=== PATIENT | female | born 1960 | race Caucasian/White ===

== ENCOUNTER 2019-11-06 09:51 | Outpatient (CLI) | payer OTHER, SELFPAY ==
--- NOTE | 2019-11-06 | ECG_ITS ---
Measurements Intervals [place] Rate: 78 P: 14 RI: 170 QRS: 26 QRSD: 114 T: 35 QT: 411 QTc: 469 Interpretive Statements SINUS RHYTHM CONSIDER INFERIOR INFARCT, AGE INDETERMINATE BASELINE ARTIFACT- II, III ABNORMAL ECG Electronically Signed On 11-06-2019 11:52:05 PATIENT FINANCIAL SERVICES SPECIALIST by Nate Carroll D.O.
--- NOTE | ~2019-11-06 | CT_ITS ---
EXAMINATION: CT lung screening EXAM DATE: 11/06/2019 10:11 INDICATION: Personal history of nicotine dependence. TECHNIQUE: Spiral low dose CT of the chest without contrast. Axial, coronal and sagittal images were reviewed. The dose-length product (DLP) for this examination was 77.53 mGy-cm. The exposure was ta ilored according to patient size (auto mA exposure control), and iterative reconstruction (ASIR) was used as additional dose reduction technique. There is no prior study for comparison. FINDINGS: Linear right basilar scarring.There is mild emphysema and hyperinflation. Tracheobronchial tree is patent. There is no mediastinal, hilar or axillary lymphadenopathy. There are no pleural or pericardial effusions. There is no pneumothorax. Heart normal in size. No evidence of coron shelby arterial calcification. There is moderate sliding gastroesophageal hiatal hernia. Upper abdomen is unremarkable. There is mild to moderate thoracic spondylosis without osteoblastic or osteolytic lesions identified. IMPRESSION: Lung-RADS category 1, negative (<1%chance of malignancy); recommend continued LDCT screen ing in 1 year. Reviewed, dictated and finalized at location A. AND AND CONTROL IMPRESSION: Lung-RADS category 1, negative (<1%chance of malignancy); recommend continued LDCT screening in 1 year.
== END 2019-11-06 09:52 | disposition home or self-care (01) ==
PROVIDERS: Visit Provider Physician Assistant
DX: F17.200 Nicotine dependence, unspecified, uncomplicated (principal); R94.31 Abnormal electrocardiogram [ECG] [EKG]
CPT/HCPCS: 93005; G0297

== ENCOUNTER 2020-11-30 16:21 | Outpatient (CLI) | payer OTHER, SELFPAY ==
--- NOTE | ~2020-11-30 | MM_ITS ---
EXAMINATION: MM screening [place] BI w ritu HISTORY: Screening TECHNIQUE: Craniocaudal and mediolateral oblique 3-D tomosynthesis images were obtained and synthetic 2-D images were generated. CAD analysis was submitted and interpreted. COMPARISON: Comparison to multiple prior studies sequentially, with oldest reviewed study dated 08/01. BREAST PARENCHYMAL COMPOSITION: There are scattered areas of fibroglandular density. FINDINGS: There is no evidence of suspicious mass, calcification, or architectural distortion to sugg est malignancy in either breast. There has been no suspicious interval change. IMPRESSION: 1. No mammographic evidence of malignancy. 2. Recommend routine screening mammography in one year. BI-RADS Category 1: Negative Reviewed, dictated and finalized at location A. RSING MILL ROLLER
== END 2020-11-30 16:22 | disposition home or self-care (01) ==
LOC: ANHIMG 16:22
PROVIDERS: PCP Physician Assistant; Visit Provider Physician Assistant
DX: Z12.31 Encounter for screening mammogram for malignant neoplasm of breast (principal)
CPT/HCPCS: 77063; 77067

== ENCOUNTER 2021-10-02 03:53 | Emergency (ER) | payer OTHER, SELFPAY ==
--- NOTE | ~2021-10-02 | CT_ITS ---
EXAMINATION: CT abdomen pelvis w con EXAM DATE: 10/02/2021 09:24 INDICATION: Abdominal pain. TECHNIQUE: Spiral CT of the abdomen and pelvis was performed following intravenous injection of 100 m L Omnipaque 350. Axial, coronal and sagittal images of the abdomen and pelvis were reviewed. The do se-length product (DLP) for this examination was 508.55 mGy-cm. The exposure was tailored according to patient size (auto mA exposure control), and iterative reconstruction (ASIR) was used as additiona l dose reduction technique. Comparison is made to prior examination from 2010. Correlation also made to chest CT from 11/06/2019. FINDINGS: There is a 6 mm stone at the right ureterovesicular junction, a contiguous 2 mm stone just proximal to this. There is moderate right-sided hydroureteronephrosis, mild perinephric fat stranding . Several additional punctate right calyceal stones. There is left calyceal 8 mm stone, no left urete ral stones. The liver, spleen, adrenal glands and pancreas are unremarkable. Gallbladder is unremarkable. No bi liary obstruction. The uterus is anteverted and morphologically normal. The bladder is unremarka ble. There is no retroperitoneal or pelvic lymphadenopathy. There is mild scattered arteriosclerot ic disease. The appendix is normal. There is mild scattered colonic diverticulosis. There is no adjacent inflamm atory change to suggest diverticulitis. There is moderate-sized gastroesophageal hiatal hernia adjac ent subsegmental atelectasis. There is expected amount of colonic stool. No free intraperitoneal gas. The heart is normal in size. There are no pericardial or pleural effusions. There is tree-in-bud distribution right lower lobe airspace disease without any evidence of this at t he left lung base. Nonspecific pneumonitis, most likely infectious process but other inflammatory charan ologies possible. This was not present on CT 2 years ago. There are no osteoblastic or osteolytic les ions identified. IMPRESSION: 1. Right UVJ 6 mm stone, moderate hydronephrosis. Additional 2 mm right distal ureteral stone. 2. Nonspecific right lower lobe pneumonitis. 3. Bilateral nephrolithiasis. 4. Mild colonic diverticulosis. 5. Moderate hiatal hernia. Reviewed, dictated and finalized at location A. FRAZER
--- NOTE | ~2021-10-02 | XR_ITS ---
EXAMINATION: XR abdomen/kub 1V EXAM DATE: 10/02/2021 09:34 INDICATION: kidney stones TECHNIQUE: Frontal projection(s) of the abdomen for interpretation. There is no prior study for meli camarena. FINDINGS: Moderate right-sided hydronephrosis and delayed nephrogram compared to the contralateral s romi which is normal. Can't identify stones due to presence of contrast. Moderate amount of colonic st ool and gas. No small bowel dilation. There are no osteoblastic or osteolytic lesions identified. IMPRESSION: Moderate right hydronephrosis. Reviewed, dictated and finalized at location A. IAGE THERAPIST
[2021-10-02 03:56] VITALS: BP 118/80; PULSE 107; RESP 19; TEMP 36.7; O2SAT 94
[2021-10-02 06:12] VITALS: BP 126/86; PULSE 95; RESP 17; TEMP 37.1; O2SAT 95
[2021-10-02 06:50] LABS: Add Urine Microscopic? YES; Appearance Urine Cloudy (Clear); Bilirubin Urine Negative (Negative); Blood Urine 3+ (Negative); Calcium Oxalate Crystals Urine Present /hpf; Color Urine Amber (Yellow); Glucose Urine UA Negative (Negative); Ketones Urine Trace mg/dL (Negative); Leukocyte Esterase Ur 1+ LEU/UL (Negative); Mucus Urine Moderate /lpf; Nitrate Urine Negative (Negative); Protein Urine 2+ mg/dL (Negative); RBC Urine >75 /hpf (0-2); Squamous Epithelial Cell Urine Few /hpf (Few); WBC Urine 31-50 /hpf
[2021-10-02 07:05] LABS: Specific Grav Ur 1.033 (1.001-1.035)
--- NOTE | 2021-10-02 07:20 | ED.GENADULT ---
HPI - General Adult General Chief complaint: Urogenital-Female Stated complaint: bladder infection, side pain Time Seen by Provider: 10/02/21 07:01 Source: RN notes reviewed History of Present Illness HPI narrative: Patient presents emergency department from home for abdominal pain. Patient states pain began last night pain is located in the right lower quadrant radiates around to the right flank described as sharp and stabbing patient also states that with the symptoms she has difficulty urinating. She denies any fevers or chills nausea or vomiting diarrhea or any other symptoms. States she does not take anything for the pain states she feels like she has to urinate but cannot urinate Related Data Home Medications Medication Instructions Recorded Confirmed ropinirole 0.25 mg tablet 0.25 mg PO TID 03/08/21 10/02/21 valbenazine 80 mg capsule 80 mg PO DAILY 03/08/21 10/02/21 acyclovir 400 mg DAILY 10/02/21 10/02/21 citalopram 40 mg DAILY 10/02/21 10/02/21 doxepin 100 mg DAILY 10/02/21 10/02/21 mirtazapine 15 mg HS 10/02/21 10/02/21 quetiapine 300 mg PO HS 10/02/21 10/02/21 rosuvastatin 5 mg DAILY 10/02/21 10/02/21 Allergies Allergy/AdvReac Type Severity Reaction Status Date / Time No Known Allergies Allergy Verified 10/02/21 09:42 Review of Systems Review of Systems: Gen.: Denies fevers or chills ENT: Denies congestion Respiratory: Denies shortness of breath or cough CV: Denies chest pain or palpitations GI: See HPI denies nausea, emesis or diarrhea see HPI Musculoskeletal: Denies back pain or muscle pain Neuro: Denies numbness, tingling, weakness or focal weakness Skin: Denies rash Except as documented, all other systems reviewed and negative [facility] Past Medical History Medical History (Updated 10/02/21 @ 10:53 by Fortino Zayas DO) Parkinsons disease Social History Social History Smoking status: Never smoker Alcohol intake: never Exam Narrative: APPEARANCE: No acute distress, nontoxic, resting in bed HEENT: Normocephalic, atraumatic, OMM RESPIRATORY: No respiratory distress, clear to auscultation bilaterally with no rhonchi wheezing or rales CARDIOVASCULAR: RRR s murmur ABDOMINAL: Soft nondistended tender palpation right lower quadrant and right upper quadrant no tenderness in left upper quadrant left lower quadrant no rebound or guarding, right flank tenderness MUSCULOSKELETAl: Moves all extremities. No clubbing, cyanosis or edema. NEURO: Awake and alert. Following commands, speech normal, no focal deficits SKIN:: Warm, dry. Normal Color PSYCHIATRIC: Normal affect/mood Course Course Emergency Course: Discussed with Dr. Enriquez for urology presentation and work-up. At this time pain is controlled, patient be discharged home with Augmentin with follow-up as an outpatient Discussed with patient her CT scan showing mild pneumonitis she states she has an occasional cough but no regular cough no fever at this time question significance as the patient presented for her flank pain and kidney stone patient has been placed on Augmentin which will cover for pneumonia and have her follow-up with her PCP Discussed with patient results of workup and diagnosis. Discussed need for follow-up with primary care, proper use of medication, and reasons to return to the emergency department. Patient understands and agrees to current treatment plan Vital Signs Vital signs: Vital Signs Temperature 98.0 F 10/02/21 03:56 Pulse Rate 107 H 10/02/21 03:56 Respiratory Rate 19 10/02/21 03:56 Blood Pressure 118/80 10/02/21 03:56 Pulse Oximetry 94 10/02/21 03:56 Temperature 98.7 F 10/02/21 06:12 Pulse Rate 83 10/02/21 10:49 Respiratory Rate 18 10/02/21 10:49 Blood Pressure 102/74 10/02/21 10:49 Pulse Oximetry 93 10/02/21 10:49 Medical Decision Making Vital Signs Vital Signs: Vital Signs Temperature 98.0 F 10/02/21 03:56 P
[2021-10-02] MEDS: SODIUM CHLORIDE 0.9% IV 1,000 ML 999 ML IV CONT (08:08)
[2021-10-02 08:27] LABS: Basophils Percent Auto 0.3 % (0.2-1.2); Eosinophils Percent Auto 0.5 % (0-4.4); Hematocrit 36.5 % (37.0-47.0); Hemoglobin 12.2 g/dL (12.0-15.0); Immature Granulocyte Absolute 0.02 K/mm3 (0.00-0.031); Immature Granulocyte Percent A 0.3 % (0-0.5); Lymphocytes Absolute Auto 0.49 K/mm3 (0.9-3.2); Lymphocytes Percent Auto 6.6 % (18.3-44.2); Mean Corpuscular HGB Conc 33.4 g/dl (32-36); Mean Corpuscular Hemoglobin 29.8 pg (26-34); Mean Corpuscular Volume 89.2 fl (80-100); Mean Platelet Volume 9.9 fl (7.4-10.4); Monocytes Absolute Auto 0.5 K/mm3 (0.1-0.6); Monocytes Percent Auto 7.3 % (2.6-8.5); Neutrophils Absolute Auto 6.3 K/mm3 (1.3-6.7); Platelet Count Result 172 k/mm3 (150-375); Red Blood Count 4.09 M/mm3 (4.2-5.4); Red Cell Distribution Width 12.4 % (11.5-14.5); White Blood Count 7.4 K/mm3 (4.5-10.0)
[2021-10-02 08:37] LABS: Alanine Aminotransferase 6 U/L (4-35); Albumin Level 4.5 g/dL (3.5-5.1); Alkaline Phosphatase 112 U/L (38-126); Anion Gap 7 mmol/L (8-16); Aspartate Amino Transferase 20 U/L (14-36); Bilirubin,Total 0.7 mg/dL (0.2-1.3); Blood Urea Nitrogen 24 mg/dL (7-17); Calcium 9.4 mg/dL (8.4-10.2); Carbon Dioxide 27 mmol/L (22-30); Chloride 104 mmol/L (98-107); Estimated CRCL calculation 42 ml/min; Estimated Glomerular Filt Rate 50; Glucose 134 mg/dL (65-110); Potassium 4.5 mmol/L (3.4-5.0); Sodium 138 mmol/L (137-145)
[2021-10-02] MEDS: MORPHINE SULFATE (*CRX) 4 MG/ML INJ IV PUSH (10:20)
[2021-10-02] MEDS: TAMSULOSIN HCL 0.4 MG CAPSULE PO (10:20)
[2021-10-02 10:49] VITALS: BP 102/74; PULSE 83; RESP 18; O2SAT 93
== END 2021-10-02 11:11 | disposition home or self-care (01) ==
PROVIDERS: Emergency Medicine; Emergency Provider Emergency Medicine; PCP Physician Assistant
DX: N13.2 Hydronephrosis with renal and ureteral calculous obstruction (principal); N39.0 Urinary tract infection, site not specified; G20 Parkinson's disease; J18.9 Pneumonia, unspecified organism; K57.90 Diverticulosis of intestine, part unspecified, without perforation or abscess without bleeding; K44.9 Diaphragmatic hernia without obstruction or gangrene
CPT/HCPCS: 36415; 74018; 74177; 80053; 81001; 85025; 87086; 87088; 96361; 96365; 96375; 99284; A9270; J0131; J0696; J2270; J7030; Q9967

== ENCOUNTER 2021-12-21 10:18 | Outpatient (CLI) | payer OTHER, SELFPAY ==
--- NOTE | ~2021-12-21 | MM_ITS ---
EXAMINATION: MM screening filomen[place] BI w ritu HISTORY: Screening mammogram TECHNIQUE: Craniocaudal and mediolateral oblique 3-D tomosynthesis images were obtained and synthetic 2-D images were generated. CAD analysis was submitted and interpreted. COMPARISON: 11/30/2020 bilateral screening mammogram 10/07/2019 diagnostic bilateral mammogram and Limited bilateral breast ultrasound examination 07/31/2019 bilateral screening mammogram BREAST PARENCHYMAL COMPOSITION: There are scattered areas of fibroglandular density. FINDINGS: There is no evidence of suspicious mass, calcification, or architectural distortion to sugg est malignancy in either breast. There has been no suspicious interval change. IMPRESSION: 1. No mammographic evidence of malignancy. 2. Recommend routine screening mammography in one year. BI-RADS Category 1: Negative Reviewed, dictated and finalized at location A.
== END 2021-12-21 10:19 | disposition home or self-care (01) ==
PROVIDERS: PCP Physician Assistant; Visit Provider Physician Assistant
DX: Z12.31 Encounter for screening mammogram for malignant neoplasm of breast (principal)
CPT/HCPCS: 77063; 77067

== ENCOUNTER 2022-10-12 12:00 | Outpatient (CLI) | payer OTHER, SELFPAY ==
--- NOTE | ~2022-10-12 | XR_ITS ---
EXAMINATION: XR hip RT min 2V DATE: 10/12/2022 12:31 INDICATION: Right-sided sciatica TECHNIQUE: Two views of right hip were obtained. COMPARISON: None. FINDINGS: Bone alignment is normal. There is no fracture. The soft tissues are unremarkable. Tubal li gation clip is noted IMPRESSION: 1. No acute osseous abnormality. Reviewed, dictated and finalized at location L. RDS TECH
--- NOTE | ~2022-10-12 | XR_ITS ---
EXAMINATION: XR lumbar spine 2-3V DATE: 10/12/2022 12:31 INDICATION: Right-sided sciatica TECHNIQUE: Anteroposterior and lateral views of the lumbar spine, and cone-down lateral view of the l umbosacral junction were obtained. COMPARISON: None. FINDINGS: There are 2 mm of retrolisthesis of L5 on S1. There is moderate loss of intervertebral disc space height at L5-S1. Vertebral body alignment and intervertebral disc space heights are otherwise normal. The vertebral body heights are maintained. Small degenerative osteophytes project from the an terior endplates of multiple vertebral bodies. Calcified atherosclerosis is noted. There is a 10 mm s tone of the left kidney lower pole. Tubal ligation clips are noted. IMPRESSION: 1. Moderate lumbar spondylosis at L5-S1 without acute findings. Reviewed, dictated and finalized at location L. NE ELECTRICIAN HELPER
[2022-10-12 13:32] LABS: Basophils Percent Auto 0.4 % (0.2-1.2); Eosinophils Percent Auto 0.9 % (0-4.4); Hematocrit 39.1 % (37.0-47.0); Immature Granulocyte Absolute 0.01 K/mm3 (0.00-0.031); Immature Granulocyte Percent A 0.2 % (0-0.5); Lymphocytes Absolute Auto 0.85 K/mm3 (0.9-3.2); Lymphocytes Percent Auto 19.1 % (18.3-44.2); Mean Corpuscular HGB Conc 33.2 g/dl (32-36); Mean Corpuscular Volume 93.3 fl (80-100); Mean Platelet Volume 10.5 fl (7.4-10.4); Monocytes Absolute Auto 0.4 K/mm3 (0.1-0.6); Neutrophils Absolute Auto 3.1 K/mm3 (1.3-6.7); Neutrophils Percent Auto 70.4 % (45.5-73.1); Platelet Count Result 183 k/mm3 (150-375); Red Blood Count 4.19 M/mm3 (4.2-5.4); Red Cell Distribution Width 13.9 % (11.5-14.5); White Blood Count 4.5 K/mm3 (4.5-10.0)
[2022-10-12 13:47] LABS: Hemoglobin A1C 5.3 % (<5.7)
[2022-10-12 13:50] LABS: Alanine Aminotransferase 7 U/L (6-35); Albumin Level 4.4 g/dL (3.5-5.1); Alkaline Phosphatase 124 U/L (38-126); Anion Gap 7 mmol/L (8-16); Aspartate Amino Transferase 17 U/L (14-36); Bilirubin,Total 0.4 mg/dL (0.2-1.3); Blood Urea Nitrogen 16 mg/dL (7-17); Calcium 8.6 mg/dL (8.4-10.2); Carbon Dioxide 26 mmol/L (22-30); Chloride 107 mmol/L (98-107); Cholesterol 144 mg/dL (0-200); Estimated Glomerular Filt Rate > 60; Glucose 106 mg/dL (65-110); HDL Direct 71 mg/dL; Potassium 3.7 mmol/L (3.4-5.0); Sodium 140 mmol/L (137-145); Triglycerides 107 mg/dL (<150)
[2022-10-12 14:01] LABS: LDL Cholesterol Direct 43 mg/dL
[2022-10-12 14:23] LABS: Vitamin D 25 Hydroxy 44.7 ng/mL
[2022-10-12 14:37] LABS: Thyroid Stimulating Hormone Reflex 0.788 uIU/mL (0.465-4.68)
[2022-10-15 15:25] LABS: Red Blood Cell Folate 506 ng/mL RBC (>280)
== END 2022-10-12 12:01 | disposition home or self-care (01) ==
PROVIDERS: PCP Nurse Practitioner Family; Visit Provider Nurse Practitioner Family
DX: M54.31 Sciatica, right side (principal); M25.551 Pain in right hip; Z13.0 Encounter for screening for diseases of the blood and blood-forming organs and certain disorders involving the immune mechanism; Z13.1 Encounter for screening for diabetes mellitus; Z13.29 Encounter for screening for other suspected endocrine disorder; Z13.220 Encounter for screening for lipoid disorders; Z13.9 Encounter for screening, unspecified; M47.897 Other spondylosis, lumbosacral region
CPT/HCPCS: 36415; 72100; 73502; 80053; 80061; 82306; 82607; 82747; 83036; 84443; 85025

== ENCOUNTER 2022-10-17 16:23 | Outpatient (CLI) | payer OTHER, SELFPAY ==
--- NOTE | ~2022-10-17 | DEXA_ITS ---
Bone Density Report Name: HERMINIA PERKINS Age: 61 Sex: Female Ethnicity: White Date of : 1960 Indication: postmenopausal; screening for osteoporosis; Referring Provider: NEERAJ, SHADIA Martin Study: Bone densitometry was performed. Exam Date: October 17, 2022 Accession number: [id number] Bone Density: Region BMD T-score Z-score Classification AP Spine(L1-L4) 0.858 -1.7 -0.1 Osteopenia Femoral Neck (Left) 0.628 -2.0 -0.6 Osteopenia Total Hip (Left) 0.785 -1.3 -0.2 Osteopenia Femoral Neck (Right) 0.627 -2.0 -0.6 Osteopenia Total Hip (Right) 0.752 -1.6 -0.4 Osteopenia Total Hip Mean 0.769 -1.5 -0.3 Osteopenia World Health Organization criteria for BMD impression classify patients as: Normal (T-score at or above -1.0), Osteopenia (T-score between -1.0 and -2.5), or Osteoporosis (T-score at or below -2.5). 10-year Fracture Risk(1): Major Osteoporotic Fracture 9.7% Hip Fracture 1.3% Reported Risk Factors: [place] (), Neck BMD=0.628, BMI=23.4 (1) FRAX(R) Version 3.08. Fracture probability calculated for an untreated patient. Fracture probability may be lower if the patient has received treatment. Clinical Information Provided by Patient: Patient maximum height was 62.5 Menopause Age: 44 No regular weight bearing exercise Drinks caffeinated beverages Onset of menses at age 11 Number of children 2 Impression: The patient has low bone mass, based on the Left Femoral Neck T-score. The patient has an estimated ten-year risk of hip fracture of 1.3% and an estimated ten-year risk of major fracture of 9.7%, based on the WHO FRAX algorithm. Discussion: BONE DENSITY IS LOW AT ONE OR MORE SKELETAL SITES. This patient's lowest T-score is low at one or more skeletal sites. It meets the World Health Organization's (WHO) criteria for ?low bone mass? (T-score between -1.0 and -2.5). The patient's 10-year risk of fracture as calculated by FRAX is less than the threshold where pharmacological therapy is recommended by the National Osteoporosis Foundation (NOF). However, all treatment decisions require clinical judgment and consideration of individual patient factors, including patient preferences, comorbidities, previous drug use, risk factors not captured in the FRAX model (e.g., frailty, falls, vitamin D deficiency, increased bone turnover, interval significant decline in bone density) and possible under or overestimation of fracture risk by FRAX. The patient should follow a healthful lifestyle (good nutrition with adequate calcium and vitamin D, and appropriate weight-bearing exercise). Follow-Up: Consider repeating this study in 2 to 3 years to reassess this patient's status, or sooner if there is some new clinical indication. Reported by: [facility] on 10/17/2022 4:59:00 PM.
--- NOTE | ~2022-10-17 | US_ITS ---
EXAMINATION: US pelvic complete w TV DATE: 10/17/2022 17:57 INDICATION: Right lower quadrant abdominal pain. TECHNIQUE: Multiple transabdominal and transvaginal sonographic images of the pelvis were obtained. COMPARISON: CT abdomen pelvis 10/02/21 FINDINGS: TRANSABDOMINAL ULTRASOUND: The uterus measures 6.6 x 2.3 x 3.8 cm. There is no free fluid in the pelvis. TRANSVAGINAL ULTRASOUND: The endometrial complex measures 2 mm in thickness. There are small calcifications in the uterus. The right ovary measures 1.8 x 0.9 x 1.4 cm. The left ovary measures 2.3 x 1.1 x 1.3 cm. There is normal vascular flow in the ovaries. IMPRESSION: 1. No etiology for the patient's symptoms. Reviewed, dictated and finalized at location A. MATIC TOE LASTER
== END 2022-10-17 16:24 | disposition home or self-care (01) ==
PROVIDERS: PCP Nurse Practitioner Family; Visit Provider Nurse Practitioner Family
DX: Z78.0 Asymptomatic menopausal state (principal); R10.31 Right lower quadrant pain; M85.88 Other specified disorders of bone density and structure, other site; M85.852 Other specified disorders of bone density and structure, left thigh; M85.851 Other specified disorders of bone density and structure, right thigh
CPT/HCPCS: 76830; 76856; 77080

== ENCOUNTER 2023-08-15 09:35 | Outpatient (CLI) | payer MEDICARE, MEDICAID, SELFPAY ==
--- NOTE | ~2023-08-15 | MM_ITS ---
EXAMINATION: MM screening [facility] BI w ritu HISTORY: Screening mammogram TECHNIQUE: Craniocaudal and mediolateral oblique 3-D tomosynthesis images were obtained and synthetic 2-D images were generated. CAD analysis was submitted and interpreted. COMPARISON: 12/21/2021, 11/30/2020, 10/07/2019, 07/31/2019 BREAST PARENCHYMAL COMPOSITION: There are scattered areas of fibroglandular density. FINDINGS: No suspicious mass, calcification, or architectural distortion are identified in either anna ast to suggest malignancy. There has been no suspicious interval change. IMPRESSION: 1. No mammographic evidence of malignancy. 2. Recommend routine screening mammography in one year. BI-RADS Category 1: Negative Reviewed, dictated and finalized at location A. ULTANT RN
== END 2023-08-15 09:36 | disposition home or self-care (01) ==
LOC: ANHIMG 09:38
PROVIDERS: PCP Nurse Practitioner Family; Visit Provider Nurse Practitioner Family
DX: Z12.31 Encounter for screening mammogram for malignant neoplasm of breast (principal)
CPT/HCPCS: 77063; 77067

== ENCOUNTER 2023-12-08 08:44 | Observation (INO) | payer MEDICARE, MEDICAID, SELFPAY ==
[2023-12-08] VITALS (12 sets, daily range): BP systolic 88–126; BP diastolic 56–88; PULSE 87–105; RESP 15–23; TEMP 36.2–37; O2SAT 94–98; BMI 17.9
--- NOTE | ~2023-12-08 | XR_ITS ---
XR chest 1V portable DATE: 12/08/2023 10:06 INDICATION: Syncope TECHNIQUE: Portable AP chest on 12/08/2023 at 0953 hours COMPARISON: November 06, 2019 CT lung screening 06/15/2017 two-view chest FINDINGS: Normal heart size. No hilar or mediastinal enlargement. Moderate bilateral hyperinflation. No pulmonary infiltrate or consolidation, pleural effusion or pulmonary vascular congestion or pneumo thorax is detected. Moderate hiatal hernia is suggested. Osteopenia. Degenerative spurring of the lower thoracic spine particular. IMPRESSION: Moderate hyperinflation; no active cardiopulmonary disease or significant change since Reviewed, dictated and finalized at location A. BRUSHER IMPRESSION: Moderate hyperinflation; no active cardiopulmonary disease or signi ficant change since 06/15/2017
--- NOTE | ~2023-12-08 | XR_ITS ---
XR wrist RT min 3V DATE: 12/08/2023 10:06 INDICATION: Fall. Pain and swelling of right wrist. TECHNIQUE: 4 views COMPARISON: None FINDINGS: Virtually nondisplaced transverse distal radial metaphyseal fracture and fracture of ulnar styloid process. There is mild dorsal inclination of distal radial articular surface. Normal radiocarpal alignment. Osteopenia. IMPRESSION: Transverse distal radial metaphyseal fracture and fracture of ulnar styloid process Reviewed, dictated and finalized at location A. L PHOTOGRAPHER
--- NOTE | ~2023-12-08 | CT_ITS ---
EXAMINATION: CT brain wo con DATE: 12/08/2023 10:27 INDICATION: Fall. Head and facial injury. TECHNIQUE: Computed tomography (CT) of the head was performed without intravenous contrast. The mA wa s adjusted according to patient size. Iterative reconstruction technique was employed. Exam dose: 52 9.67 mGy-cm total exam DLP. COMPARISON: 09/18/2019 MRI brain/brainstem FINDINGS: Minimal left basal ganglia calcification. Normal ventricular size. Normal morton-white matter differentiation. No intracranial mass lesion or hemorrhage or cerebrovascular accident. No midline shift or mass effec t. Minimal right maxillary and left sphenoid sinus mucoperiosteal thickening. The mastoid air cells are normally developed and aerated. No fracture or bone destruction of the cranial vault. IMPRESSION: No skull fracture or acute intracranial finding Reviewed, dictated and finalized at Location A. Reviewed, dictated and finalized at location A. ROL DIRECTOR
--- NOTE | ~2023-12-08 | CT_ITS ---
EXAMINATION: CT facial & cervical spine wo DATE: 12/08/2023 10:27 INDICATION: Fall. Head and facial injury TECHNIQUE: Computed tomography (CT) of the facial bones and maxillofacial region was performed withou t intravenous contrast. Automated exposure control and iterative reconstruction technique were employ ed. Exam dose: 176.60 mGy-cm total exam DLP. COMPARISON: None. FINDINGS: The facial bones, including the orbital rims and veronica, frontozygomatic sutures, nasal bone s, zygomatic arches and maxillary bones are intact. The pterygoid plates are intact. Normal alignment at the temporomandibular joints. No mandibular fracture. Prominent mucoperiosteal thickening of the right maxillary sinus an mild mucoperiosteal thickening of left sphenoid sinus.. Remaining paranasal sinuses are unremarkable. No sinus fluid levels. Included mastoid air cells are normally developed and aerated.. IMPRESSION: No facial bone fracture Reviewed, dictated and finalized at Location A. Reviewed, dictated and finalized at location A. CE RESERVES COMMANDER IMPRESSION: No facial bone fracture
--- NOTE | ~2023-12-08 | XR_ITS ---
XR shoulder LT min 2V DATE: 12/08/2023 10:06 INDICATION: Fall. Left shoulder injury, pain TECHNIQUE: 4 views COMPARISON: None FINDINGS: There is diffuse osteopenia. No fracture or dislocation, periosteal reaction or bone destru ction or abnormal soft tissue calcification. There is degenerative change at the left acromioclavicul ar joint. IMPRESSION: No fracture or dislocation Degenerative change at left, clavicular joint Osteopenia Reviewed, dictated and finalized at location A. OSER TEACHING ARTIST
--- NOTE | 2023-12-08 09:18 | ECG_ITS ---
Measurements Intervals [place] Rate: 98 P: 71 ND: 179 QRS: -67 QRSD: 98 T: 68 QT: 345 QTc: 442 Interpretive Statements SINUS RHYTHM MINIMAL Q WAVES- INFERIOR LEADS BORDERLINE T WAVE ABNORMALITY- HIGH LATERAL LEADS BASELINE WANDER- II, III, V5-V6 BORDERLINE ECG COMPARED TO ECG 11/06/2019 11:36:23 NO SIGNIFICANT CHANGES Electronically Signed On 12-08-2023 13:09:07 PIN INSERTER by Nate Carroll D.O.
[2023-12-08] MEDS: HYDROmorphone HCL INJ (*CRX) 1 MG/ML SYR 0.5 MG IV PUSH ×4 (09:44→19:58)
[2023-12-08] MEDS: SODIUM CHLORIDE 0.9% IV 1,000 ML 999 ML IV CONT ×2 (09:45→10:57)
[2023-12-08] MEDS: ONDANSETRON INJ 4 MG/2 ML VIAL IV PUSH (09:47)
[2023-12-08 10:00] LABS: Basophils Percent Auto 0.3 % (0.2-1.2); Eosinophils Percent Auto 0.1 % (0-4.4); Hematocrit 39.8 % (37.0-47.0); Hemoglobin 13.1 g/dL (12.0-15.0); Immature Granulocyte Absolute 0.05 K/mm3 (0.00-0.031); Immature Granulocyte Percent A 0.6 % (0-0.5); Lymphocytes Percent Auto 6.9 % (18.3-44.2); Mean Corpuscular HGB Conc 32.9 g/dl (32-36); Mean Corpuscular Hemoglobin 31.7 pg (26-34); Mean Corpuscular Volume 96.4 fl (80-100); Mean Platelet Volume 10.6 fl (7.4-10.4); Monocytes Absolute Auto 0.5 K/mm3 (0.1-0.6); Monocytes Percent Auto 5.6 % (2.6-8.5); Neutrophils Absolute Auto 7.5 K/mm3 (1.3-6.7); Neutrophils Percent Auto 86.5 % (45.5-73.1); Platelet Count Result 204 k/mm3 (150-375); Red Blood Count 4.13 M/mm3 (4.2-5.4); Red Cell Distribution Width 12.4 % (11.5-14.5); White Blood Count 8.7 K/mm3 (4.5-10.0)
--- NOTE | 2023-12-08 10:02 | ED.GENADULT ---
HPI - General Adult General Chief complaint: Fall Stated complaint: wrist injury Time Seen by Provider: 12/08/23 08:56 Source: patient Mode of arrival: ambulatory Limitations: no limitations History of Present Illness HPI narrative: This is a 63-year-old female with PMH of parkinsonism, tardive dyskinesia, anxiety who presents to the ED with chief complaint of a fall this morning. Patient's significant other is here and helping provide history. Patient reports that she woke up to go to the bathroom, while going downstairs she fell the 2nd last step. Reports that she injured her right wrist left shoulder during this time. She was able to go back to bed. Patient's spouse states that several hours later around 8:00 a.m. she had another fall. Reports that she was senior living down the stairs when she seemed to of likely syncopized. Reports she fell down 3-4 stairs and was able to come back to normal mental status after a few seconds. The when asked about the syncopal episode, patient does report she had some prodrome before falling, felt lightheaded. She also notes that she was in a lot of pain in her wrist at that time. States she has been taking her medications as prescribed for tardive dyskinesia and Parkinson's. Denies any preceding chest pain, shortness of breath. Denies numbness, weakness, speech change, vision change or any further sites of pain or injury. Related Data Home Medications Medication Instructions Recorded Confirmed valbenazine 80 mg capsule 80 mg PO DAILY 03/08/21 12/08/23 (Ingrezza) acyclovir 400 mg tablet 400 mg DAILY 10/02/21 12/08/23 doxepin 100 mg capsule 100 mg DAILY 10/02/21 12/08/23 rosuvastatin 5 mg tablet 5 mg PO DAILY 10/02/21 12/08/23 omeprazole 40 mg capsule,delayed 20 mg PO DAILY 02/01/22 12/08/23 release quetiapine 200 mg tablet 400 mg PO QHS 02/01/22 12/08/23 bupropion HCl 75 mg tablet 75 mg PO DAILY 09/19/23 12/08/23 mirtazapine 45 mg tablet 45 mg PO DAILY 09/19/23 12/08/23 citalopram 40 mg tablet 40 mg PO DAILY 12/08/23 12/08/23 famotidine 20 mg tablet 20 mg PO BID 12/08/23 12/08/23 Allergies Allergy/AdvReac Type Severity Reaction Status Date / Time No Known Allergies Allergy Verified 09/19/23 09:51 Review of Systems Review of Systems: All systems as dictated in [facility] Past Medical History Medical History Parkinsons disease Social History Social History Smoking packs per day: 0 Smoking cigarettes per day: 0.0 Years smoked: 0 Smoking pack-years: 0.00 Smoking status: Former smoker Tobacco type: cigarettes Second hand tobacco smoke exposure: No Alcohol intake: never Substance use: never Substance use type: does not use Do You Feel Safe in your Home?: Yes Lack of Transportation: No Lack of Food: Never True Current Housing: I Have Housing Concerned About Future Housing: No Difficulty Paying Gas/Electric Bills: No Difficulty Paying for Meds: No Currently Unemployed: No Education: High School Diploma/GED Difficulty w/ Childcare or Family Care: No Living arrangements: with family Spiritual care concerns: No Exam Narrative: GENERAL: Well-appearing, well-nourished, and in no acute distress. HEAD: Normocephalic, atraumatic. EYES: PERRLA and EOMI. ENT: Nares clear, no rhinorrhea or epistaxis. Mucous membranes moist. Oropharynx without tonsillar hypertrophy exudate or other lesions. NECK: Supple. No adenopathy or masses. CHEST: No respiratory distress. Clear to auscultation. No wheezes rales or rhonchi HEART: Regular rate and rhythm. No murmur heard. Normal peripheral pulses. ABDOMEN: Soft, nontender, nondistended, normal active bowel sounds. MSK: Right wrist bruising and swelling present. Neurovascularly intact distally. Left shoulder mild tenderness. Able to raise left arm above head. No pain with log ro
[2023-12-08 10:03] LABS: Alanine Aminotransferase 13 U/L (6-35); Albumin Level 4.1 g/dL (3.5-5.1); Alkaline Phosphatase 135 U/L (38-126); Anion Gap 3 mmol/L (8-16); Aspartate Amino Transferase 23 U/L (14-36); Bilirubin,Total 0.6 mg/dL (0.2-1.3); Blood Urea Nitrogen 14 mg/dL (7-17); Carbon Dioxide 27 mmol/L (22-30); Chloride 108 mmol/L (98-107); Estimated CRCL calculation 45 ml/min; Estimated Glomerular Filt Rate > 60; Glucose 123 mg/dL (65-110); Potassium 4.2 mmol/L (3.4-5.0); Sodium 138 mmol/L (137-145)
[2023-12-08 10:06] LABS: Partial Thromboplastin Time 30.8 SECONDS (22.3-36.8)
[2023-12-08 10:09] LABS: INR 0.9; Prothrombin Time 12.8 Seconds (11.1-14.7)
[2023-12-08 10:15] LABS: Troponin I < 0.012 ng/mL (0.000-0.034)
[2023-12-08 11:02] LABS: Appearance Urine Clear (Clear); Bacteria Urine None Seen /hpf; Bilirubin Urine Negative (Negative); Blood Urine Negative (Negative); Color Urine Yellow (Yellow); Glucose Urine UA Negative (Negative); Ketones Urine Trace mg/dL (Negative); Leukocyte Esterase Ur 1+ LEU/UL (Negative); Nitrate Urine Negative (Negative); Protein Urine Trace mg/dL (Negative); RBC Urine 0-2 /hpf (0-2); Specific Grav Ur 1.019 (1.001-1.035); Squamous Epithelial Cell Urine Occasional /hpf (Few)
[2023-12-08] MEDS: KETOROLAC 15 MG/ML VIAL (*BKC) IV PUSH (11:02)
[2023-12-08 11:08] LABS: Add Urine Microscopic? YES
[2023-12-08] MEDS: SODIUM CHLORIDE 0.9% IV 1,000 ML 125 ML IV CONT ×2 (14:31→21:55)
--- NOTE | 2023-12-08 14:41 | ADMGEN ---
This patient, Priya John, was admitted to 3 Med Surg Room 317-01. Patient/family oriented to hospital policies and general routines including ID bracelet, bed and alarms, visiting hours, pain management, procedures, bathroom and other care routines, personal items, smoking policy, room service/diet, and visiting hours. Information on how to activate the Rapid Response Team has been discussed. Patient/Family are encouraged to report perceived risks to care and to ask questions if they do not understand what they are told or what they should do.
--- NOTE | 2023-12-08 15:46 | PM.IMHP ---
H&P: HPI History of Present Illness Date/Time: 12/08/23 15:46 Chief Complaint: Fall with Injury Narrative: Patient is a 63-year-old female who presented to the emergency department after 2 falls down her stairs at home with right wrist pain. Patient stated she had fallen earlier this morning and that she would be okay. Patient stated her left wrist hurt after the 1st initial fall but that should be okay. About 3 hours later patient attempted to walk down her steps again and tripped and fell with mechanical fall down 5 steps at this time has been brought patient into the emergency department for evaluation. Patient does have a past medical history of Parkinson's and tardive dyskinesia this is likely cause patient's full denies any chest pain, shortness a breath, nausea, vomiting, dizziness, blurred vision. Patient's labs unremarkable in the emergency department vitals stable however patient was positive for orthostatic hypotension will repeat tomorrow. Head CT showed no acute issues no cervical or spinal fractures however right wrist x-ray showed Transverse distal radial metaphyseal fracture and fracture of ulnar styloid process. Left distal neurovascularly intact. Patient was admitted to the medical-surgical unit for further evaluation and treatment of mechanical fall with injury as well as orthostatic hypotension patient to have a consult to Orthopedics appreciate recommendations and possible surgical intervention will continue with pain control. Review of Systems Review of Systems: All systems reviewed & are unremarkable except as noted in HPI and below PMFSH Past Medical History Medical History Parkinsons disease Social History Social History Smoking packs per day: 0 Smoking cigarettes per day: 0.0 Years smoked: 0 Smoking pack-years: 0.00 Smoking status: Former smoker Tobacco type: cigarettes Second hand tobacco smoke exposure: No Alcohol intake: never Substance use: never Substance use type: does not use Do You Feel Safe in your Home?: Yes Lack of Transportation: No Lack of Food: Never True Current Housing: I Have Housing Concerned About Future Housing: No Difficulty Paying Gas/Electric Bills: No Difficulty Paying for Meds: No Currently Unemployed: No Education: High School Diploma/GED Difficulty w/ Childcare or Family Care: No Living arrangements: with family Spiritual care concerns: No Meds Home Medications and Allergies Home Medications Medication Instructions Recorded Confirmed Type valbenazine 80 mg capsule 80 mg PO DAILY 03/08/21 12/08/23 History (Ingrezza) acyclovir 400 mg tablet 400 mg DAILY 10/02/21 12/08/23 History doxepin 100 mg capsule 100 mg DAILY 10/02/21 12/08/23 History rosuvastatin 5 mg tablet 5 mg PO DAILY 10/02/21 12/08/23 History omeprazole 40 mg capsule,delayed 20 mg PO DAILY 02/01/22 12/08/23 History release quetiapine 200 mg tablet 400 mg PO QHS 02/01/22 12/08/23 History ropinirole 0.25 mg tablet 0.25 mg PO TID #90 tabs 07/25/23 12/08/23 Rx bupropion HCl 75 mg tablet 75 mg PO DAILY 09/19/23 12/08/23 History carbidopa 25 mg-levodopa 100 mg 1.5 tablet PO TID #180 tabs 09/19/23 12/08/23 Rx tablet mirtazapine 45 mg tablet 45 mg PO DAILY 09/19/23 12/08/23 History amantadine HCl 100 mg capsule 100 mg PO BID #60 caps 11/16/23 12/08/23 Rx citalopram 40 mg tablet 40 mg PO DAILY 12/08/23 12/08/23 History famotidine 20 mg tablet 20 mg PO BID 12/08/23 12/08/23 History Allergies Allergy/AdvReac Type Severity Reaction Status Date / Time No Known Allergies Allergy Verified 09/19/23 09:51 Vital Signs Vital Signs - 24 hr 12/08/23 08:47 12/08/23 09:48 12/08/23 09:50 Temperature 97.1 F L Pulse Rate 105 H 99 101 H Respiratory Rate 20 Blood Pressure 96/69 L 111/83 95/70 L Pulse Oximetry 98 Oxygen Deliver
[2023-12-08] MEDS: rOPINIRole HCL 0.25 MG TABLET PO (16:43)
[2023-12-08] MEDS: FAMOTIDINE 20 MG TABLET PO (16:43)
[2023-12-08] MEDS: AMANTADINE HCL 100 MG CAPSULE PO (16:44)
[2023-12-08] MEDS: CARBIDOPA/LEVODOPA 25/100 MG TABLET 1 TABLET PO (16:44)
[2023-12-08] MEDS: CARBIDOPA/LEVODOPA 12.5/50 MG TABLET 1 TABLET PO (16:44)
[2023-12-08] MEDS: KETOROLAC 30 MG/ML VIAL (*BKC) IV PUSH (18:01)
[2023-12-08] MEDS: QUEtiapine FUMARATE XR 200 MG TAB.ER.24H 800 MG PO (20:00)
[2023-12-09] VITALS (7 sets, daily range): BP systolic 120–141; BP diastolic 70–82; PULSE 82–112; RESP 16; TEMP 36.5–36.9; O2SAT 98–100
--- NOTE | 2023-12-09 03:54 | PC.NURSE ---
Daylight Savings Time For Daylight Savings Time Ending in the Fall - Clocks are moved back. For Daylight Savings Time Beginning in the Spring - Clocks are moved ahead. For [facility], the time of change occurs at 0200 hrs. Time is taken from the server manager. This entry on the patient's chart recognizes the change in time reflected during documentation. Example: 2 entries for vital signs may be charted for 0200 hrs.
[2023-12-09 06:30] LABS: Hematocrit 34.7 % (37.0-47.0); Hemoglobin 11.1 g/dL (12.0-15.0); Mean Corpuscular Hemoglobin 31.8 pg (26-34); Mean Corpuscular Volume 99.4 fl (80-100); Mean Platelet Volume 10.5 fl (7.4-10.4); Platelet Count Result 148 k/mm3 (150-375); Red Blood Count 3.49 M/mm3 (4.2-5.4); Red Cell Distribution Width 12.3 % (11.5-14.5); White Blood Count 4.4 K/mm3 (4.5-10.0)
[2023-12-09 06:40] LABS: Alanine Aminotransferase 8 U/L (6-35); Albumin Level 3.3 g/dL (3.5-5.1); Alkaline Phosphatase 115 U/L (38-126); Anion Gap 2 mmol/L (8-16); Aspartate Amino Transferase 20 U/L (14-36); Bilirubin,Total 0.7 mg/dL (0.2-1.3); Blood Urea Nitrogen 10 mg/dL (7-17); Calcium 8.1 mg/dL (8.4-10.2); Carbon Dioxide 24 mmol/L (22-30); Chloride 112 mmol/L (98-107); Estimated CRCL calculation 58 ml/min; Estimated Glomerular Filt Rate > 60; Glucose 99 mg/dL (65-110); Potassium 3.9 mmol/L (3.4-5.0); Sodium 138 mmol/L (137-145)
[2023-12-09] MEDS: ROSUVASTATIN 5 MG TABLET PO (08:18)
[2023-12-09] MEDS: ACYCLOVIR 400 MG TABLET PO (08:18)
[2023-12-09] MEDS: CARBIDOPA/LEVODOPA 12.5/50 MG TABLET 1 TABLET PO ×2 (08:18→12:20)
[2023-12-09] MEDS: AMANTADINE HCL 100 MG CAPSULE PO (08:18)
[2023-12-09] MEDS: FAMOTIDINE 20 MG TABLET PO (08:18)
[2023-12-09] MEDS: buPROPion HCL 75 MG TABLET PO (08:18)
[2023-12-09] MEDS: CARBIDOPA/LEVODOPA 25/100 MG TABLET 1 TABLET PO ×2 (08:19→12:20)
[2023-12-09] MEDS: rOPINIRole HCL 0.25 MG TABLET PO ×2 (08:19→12:20)
[2023-12-09] MEDS: HYDROmorphone HCL INJ (*CRX) 1 MG/ML SYR 0.5 MG IV PUSH (08:19)
[2023-12-09] MEDS: CITALOPRAM HYDROBROMIDE 20 MG TABLET 40 MG PO (08:26)
[2023-12-09] MEDS: SODIUM CHLORIDE 0.9% IV 1,000 ML 125 ML IV CONT (08:27)
--- NOTE | 2023-12-09 09:13 | PM.CNOR ---
Assessment and Plan Assessment and plan (1) Closed fracture of left distal radius and ulna: Code(s): S52.502A - Unspecified fracture of the lower end of left radius, initial encounter for closed fracture; S52.602A - Unspecified fracture of lower end of left ulna, initial encounter for closed fracture Status: Acute (2) Syncope: Code(s): R55 - Syncope and collapse Status: Acute (3) Parkinsonism: Code(s): G20.C - Parkinsonism, unspecified Status: Acute (4) Tardive dyskinesia: Code(s): G24.01 - Drug induced subacute dyskinesia Status: Acute Plan Extra-articular distal radius Colles fracture. Mild impaction and displacement is acceptable. Appropriately splinted. The fracture is amenable to conservative treatment. Plan on casting in 2 weeks. We will check an x-ray. Risk of displacement, stiffness, arthritis, need for surgery, and deformity reviewed. History of Present Illness HPI Consult date: 12/09/23 Chief complaint: Fall,Syncope,R Wrist Fracture Narrative: Patient complains of acute wrist pain. Syncopal episode. Fell from standing height on stairs. Admitted through the emergency room for definitive management. History of Parkinson's disease. Comfortable at rest. No numbness, tingling, or other associated symptoms. Review of Systems Review of Systems: Syncopal episode. Workup in progress. All systems reviewed & are unremarkable except as noted in HPI and below PMFSH Past Medical History Medical History Parkinsons disease Social History Social History Smoking packs per day: 0 Smoking cigarettes per day: 0.0 Years smoked: 0 Smoking pack-years: 0.00 Smoking status: Former smoker Tobacco type: cigarettes Second hand tobacco smoke exposure: No Alcohol intake: never Substance use: never Substance use type: does not use Do You Feel Safe in your Home?: Yes Lack of Transportation: No Lack of Food: Never True Current Housing: I Have Housing Concerned About Future Housing: No Difficulty Paying Gas/Electric Bills: No Difficulty Paying for Meds: No Currently Unemployed: No Education: High School Diploma/GED Difficulty w/ Childcare or Family Care: No Living arrangements: with family Spiritual care concerns: No Meds Home Medications and Allergies Home Medications Medication Instructions Recorded Confirmed Type valbenazine 80 mg capsule 80 mg PO DAILY 03/08/21 12/08/23 History (Ingrezza) acyclovir 400 mg tablet 400 mg DAILY 10/02/21 12/08/23 History doxepin 100 mg capsule 100 mg DAILY 10/02/21 12/08/23 History rosuvastatin 5 mg tablet 5 mg PO DAILY 10/02/21 12/08/23 History omeprazole 40 mg capsule,delayed 20 mg PO DAILY 02/01/22 12/08/23 History release ropinirole 0.25 mg tablet 0.25 mg PO TID #90 tabs 07/25/23 12/08/23 Rx bupropion HCl 75 mg tablet 75 mg PO DAILY 09/19/23 12/08/23 History carbidopa 25 mg-levodopa 100 mg 1.5 tablet PO TID #180 tabs 09/19/23 12/08/23 Rx tablet mirtazapine 45 mg tablet 45 mg PO DAILY 09/19/23 12/08/23 History amantadine HCl 100 mg capsule 100 mg PO BID #60 caps 11/16/23 12/08/23 Rx citalopram 40 mg tablet 40 mg PO DAILY 12/08/23 12/08/23 History famotidine 20 mg tablet 20 mg PO BID 12/08/23 12/08/23 History quetiapine 400 mg tablet,extended 800 mg PO HS 12/08/23 12/08/23 History release 24 hr Allergies Allergy/AdvReac Type Severity Reaction Status Date / Time No Known Allergies Allergy Verified 09/19/23 09:51 Vital Signs Vital Signs - 24 hr 12/08/23 08:47 12/08/23 09:48 12/08/23 09:50 Temperature 36.2 C L Pulse Rate 105 H 99 101 H Respiratory Rate 20 Blood Pressure 96/69 L 111/83 95/70 L Pulse Oximetry 98 Oxygen Delivery Room Air 12/08/23 09:58 12/08/23 10:45 12/08/23 11:00 Temperature Pulse Rate 102 H 92 94 Res
--- NOTE | 2023-12-09 13:19 | PM.DS ---
DS: Admitting Diagnosis Discharge Date 12/09/2023 Admitting Diagnosis Closed fracture of the left distal radius and ulna/mechanical fall DS: Discharge Diagnosis Discharge Diagnosis (1) Tardive dyskinesia: Code(s): G24.01 - Drug induced subacute dyskinesia Status: Acute (2) Parkinsonism: Code(s): G20.C - Parkinsonism, unspecified Status: Acute (3) Fall with injury: Code(s): W19.XXXA - Unspecified fall, initial encounter Status: Acute (4) Closed fracture of left distal radius and ulna: Code(s): S52.502A - Unspecified fracture of the lower end of left radius, initial encounter for closed fracture; S52.602A - Unspecified fracture of lower end of left ulna, initial encounter for closed fracture Status: Acute (5) GERD (gastroesophageal reflux disease): Code(s): K21.9 - Gastro-esophageal reflux disease without esophagitis Status: Acute Plan Mechanical fall with injury Likely secondary to patient's underlying Parkinson's Left wrist fracture all other x-rays negative for acute issues PT/OT ordered Orthostatic positive Recommended compression stockings when ambulating Follow-up orthostatics Left wrist fracture Transverse distal radial fracture and ulnar styloid process Pain control Consult to Orthopedics Splint in place Monitor neurovascular status (positive for sensation warm to touch) Antipyretics antiemetics Parkinson's Chronic Resume patient's home medications GERD Stable Resume patient's Pepcid Code status: Full code per patient DVT prophylaxis: SCD Stress ulcer prophylaxis: Pepcid PT/OT notes: PT/OT pending Disposition: Patient admitted to the medical unit for further evaluation and treatment mechanical fall with injury and left wrist fracture to be seen by Orthopedics. Plan will be for patient to discharge to home when medically stable. DS: Summary Hospital Course Reason for hospitalization: Closed fracture of the left distal radius and ulna/mechanical fall Hospital Course: Chief Complaint: Fall with Injury Narrative: Patient is a 63-year-old female who presented to the emergency department after 2 falls down her stairs at home with right wrist pain.? Patient stated she had fallen earlier this morning and that she would be okay.? Patient stated her left wrist hurt after the 1st initial fall but that should be okay.? About 3 hours later patient attempted to walk down her steps again and tripped and fell with mechanical fall down 5 steps at this time has been brought patient into the emergency department for evaluation.? Patient does have a past medical history of Parkinson's and tardive dyskinesia this is likely cause patient's full denies any chest pain, shortness a breath, nausea, vomiting, dizziness, blurred vision.? Patient's labs unremarkable in the emergency department vitals stable however patient was positive for orthostatic hypotension will repeat tomorrow.? Head CT showed no acute issues no cervical or spinal fractures however right wrist x-ray showed?Transverse distal radial metaphyseal fracture and fracture of ulnar styloid process.? Left distal neurovascularly intact.? Patient was admitted to the medical-surgical unit for further evaluation and treatment of mechanical fall with injury as well as orthostatic hypotension patient to have a consult to Orthopedics appreciate recommendations and possible surgical intervention will continue with pain control. 12/08:DISCHARGED Patient with no complaints pain is minimal to RT wrist and controlled. No surgical intervention at this time will have follow-up with orthopedics for cast placement in 2 weeks. Patient educated on monitoring neurovascular distal to fracture. Patient with history of parkinson's reviewed fall risk safety at home with patient and family. Status at Discharge Functional status at discharge: independent ambulation Overall status at dis
== END 2023-12-09 14:20 | disposition home or self-care (01) ==
LOC: ANHED 09:29 → ANH3MEDSUR 12:51
PROVIDERS: Nurse Practitioner Family; Admitting Provider Internal Medicine; Emergency Provider Physician Assistant; PCP Nurse Practitioner Family; Visit Provider Internal Medicine
DX: S52.531A Colles' fracture of right radius, initial encounter for closed fracture (principal); S52.614A Nondisplaced fracture of right ulna styloid process, initial encounter for closed fracture; W10.9XXA Fall (on) (from) unspecified stairs and steps, initial encounter; R55 Syncope and collapse; G24.01 Drug induced subacute dyskinesia; G20.C Parkinsonism, unspecified; M85.812 Other specified disorders of bone density and structure, left shoulder; K21.9 Gastro-esophageal reflux disease without esophagitis; F41.9 Anxiety disorder, unspecified; Z87.891 Personal history of nicotine dependence; Z79.899 Other long term (current) drug therapy
CPT/HCPCS: 36415; 70450; 70486; 71045; 72125; 73030; 73110; 80053; 81001; 84484; 85025; 85027; 85610; 85730; 87086; 93005; 96361; 96374; 96375; 96376; 97161; 97165; 99285; A4565; A9270; G0378; J1170; J1885; J2405; J7030

== ENCOUNTER 2024-05-28 10:49 | Outpatient (CLI) | payer OTHER, SELFPAY ==
--- NOTE | ~2024-05-28 | CT_ITS ---
CT Scan of the Chest without Contrast: Clinical Indication: Lung cancer screening, nicotine dependence Technique: Contiguous sections were acquired throughout the chest without intravenous contrast. Dose reduction technique was used on this scan by utilizing automated exposure control and iterative recon struction technique. The dose-length product (DLP) was 60.32 mGy-cm. Findings: There is no evidence of any significant mediastinal, hilar or axillary lymphadenopathy. The mediastin al soft tissues appear normal. There is no evidence of pleural or pericardial effusion. The lungs are clear. No pulmonary nodules or infiltrates are noted. Images through the upper abdomen reveal large hiatal hernia. Impression: Lung RADS 1: Negative. 12 month follow-up screening CT advised. Large hiatal hernia. Reviewed, dictated and finalized at location . Impression: Lung RADS 1: Negative. 12 month follow-up screening CT advised. Large hiatal hernia.
== END 2024-05-28 10:50 | disposition home or self-care (01) ==
LOC: ANHIMG 10:55
PROVIDERS: PCP Physician Assistant; Visit Provider Physician Assistant
DX: Z12.2 Encounter for screening for malignant neoplasm of respiratory organs (principal); Z87.891 Personal history of nicotine dependence; K44.9 Diaphragmatic hernia without obstruction or gangrene
CPT/HCPCS: 71271

== ENCOUNTER 2025-04-18 10:27 | Observation (INO) | payer OTHER, SELFPAY ==
[2025-04-18] VITALS (9 sets, daily range): BP systolic 102–121; BP diastolic 69–82; PULSE 88–110; RESP 12–20; TEMP 36.1–36.8; O2SAT 93–100; BMI 22.8
--- NOTE | ~2025-04-18 | CT_ITS ---
EXAMINATION: CT abdomen pelvis wo con DATE: 04/18/2025 12:33 INDICATION: Flank pain TECHNIQUE: Computed tomography (CT) of the abdomen and pelvis was performed without intravenous contr ast. The dose-length product was 183.41 mGy-cm. Automated exposure control and iterative reconstructi on technique were employed. COMPARISON: CT dated 10/02/2021. FINDINGS: Lung bases unremarkable. Large hiatal hernia. There is a left mid ureteral stone measuring proximally 6 mm with moderate left hydronephrosis with perinephric and periureteral edema. Nonobstruc ting right nephrolithiasis. Fatty infiltration of the liver. The spleen, pancreas, adrenal glands are unremarkable. Gallbladder i s present. Nonobstructive bowel gas pattern. IMPRESSION: 1. Obstructing 6 mm left mid ureteral stone at the L4-5 level with moderate hydronephrosis. 2: Nonobstructing right nephrolithiasis. Reviewed, dictated and finalized at location A. IMPRESSION: 1. Obstructing 6 mm left mid ureteral stone at the L4-5 level with moderate hyd ronephrosis. 2: Nonobstructing right nephrolithiasis.
--- NOTE | ~2025-04-18 | XR_ITS ---
XR abdomen/kub 1V 04/18/2025 13:22 INDICATION: Flank pain TECHNIQUE: KUB COMPARISON: None FINDINGS: Bowel gas pattern is normal. There is no evidence of free air, mass, organomegaly, ascites or obstruction. No abnormal calculi are seen. The bones appear intact. IMPRESSION: 1: No acute abdominal abnormality identified. Reviewed, dictated and finalized at location A.
--- NOTE | ~2025-04-18 | XR_ITS ---
EXAMINATION: XR retrograde pyelo w/stent LT DATE: 04/19/2025 08:20 INDICATION: Left internal ureteral stent placement TECHNIQUE: Fluoroscopic images from a left internal ureteral stent placement are submitted for review . 66 seconds of fluoroscopy time. FINDINGS: There is a left double-J internal ureteral stent projecting in expected position, with proximal [place] loop at the level of the renal pelvis and distal loop in the pelvis within the bladder lumen. IMPRESSION: 1. Left internal ureteral stent placement. Please refer to real-time procedural findings for detail s. Reviewed, dictated and finalized at location A. IMPRESSION: 1. Left internal ureteral stent placement. Please refer to real-time procedur al findings for details.
--- NOTE | ~2025-04-18 | XR_ITS ---
Supine and upright views of the abdomen Clinical history: Left ureteral stone COMPARISON: 04/18/2025 Findings: Bowel gas pattern is nonspecific. No evidence for obstruction or free air. Questionable 6 m m stone in the left mid ureter at the L4-L5 disc space level.. Osseous structures are intact. Impression: Questionable 6 mm stone in the mid left ureter at the L4-L5 disc space level. Reviewed, dictated and finalized at location . Impression: Questionable 6 mm stone in the mid left ureter at the L4-L5 disc space level.
--- OUTSIDE RECORDS SUMMARY | 2025-04-18 10:31 | XMS_ITS ---
Author Organization [facility] Address [address] [place] [address] Care Team Providers Care Tuft Machine Operator Name Role Phone Clotilde Abbott Primary Care Provider [phone] Precious Sheffield [phone] REASON FOR VISIT please call [phone]-transfer from [facility] Encounters Encounter Location Date Provider Diagnosis [address] [place] [address] 04/14/2025 Precious Sheffield Plan Of Treatment No Information Progress Notes * Priya JOHNDOB:1960 ( 64 yo F)Acc No.[id number]:04/14/2025 UNLOCKED PROGRESS NOTE Patient: Priya MITCHELL Provider: PRABHAKAR Pierre :1960 A ge:64 Y S ex:Female Date:04/14/2025 [address] [id number] Pcp:Clotilde Abbott Subjective: * Chief Complaints: * 1 . please call [phone]-transfer from [facility]. * Medical History: Objective: * Vitals: Assessment: Plan: * Treatment: * * Electronic signature of Kristel Sheffield on 04/18/2025 at 10:31 AM CDT Sign off status: Pending * Provider: PRABHAKAR Pierre Date: 0 04/14/2025 Generated for Shanelle amaral/Zenaida/Jeffery on: 0 04/18/2025 10:31 AM CDT
--- OUTSIDE RECORDS SUMMARY | 2025-04-18 10:31 | XMS_ITS | Data Portability ---
Author Organization [place] [employer], Main Office Address [address] [place] [address] Assessment Encounter Date Assessment Date Assessment LastModified by Organization Details LastModified Time 07/18/2023 07/18/2023 Discussed pt to get immunizations, pneumonia, shingrix, rsv, flu, covid. Not available 07/18/2023 11:45:12 09/05/2023 09/05/2023 Assessment: JONATHAN PLMD Hypoventilation Plan: The following were reviewed and explained to the patient: primary care/referral note General information on sleep disordered breathing, evaluation of sleep disordered breathing, treatment with PAP therapy, and living with PAP therapy were covered. Chapter 1 of educational DVD was shown. PSG is medically necessary to determine the degree of and management of sleep apnea. We discussed with the patient the impact of weight on: Sleep disordered breathing Hyperlipidemia DERECK Osteopenia Lumbar spondylosis We discussed with the patient the benefit of PAP therapy on: Sleep disordered breathing Depression/Anxie ty DERECK Educated the patient on sleep hygiene measures. Relaxing rituals to rest easy, understanding foods with positive and negative impact on sleep, creating a peaceful sleep environment, timing of exercise, using herbal sleep aids, and practicing sleep-friendly meditation were covered. To determine how much sleep is needed, the patient will assess where she falls on the spectrum, examine what lifestyle factors such as work schedules and stress are affecting the quality and quantity of sleep. In general, adults need 7-9 hours of sleep. Educated the patient regarding foods that promote sleep. These include but are not limited to cherries, bananas, toast, oatmeal, and warm milk. Educated the patient regarding foods and drinks to avoid before bedtime. These include but are not limited to aged cheese, chocolate, spicy foods, tomato-based sauces, soy, ginseng tea and processed meat. Advocated influenza vaccination annually and pneumonia vaccination in 2024. Encouraged patient to adjust caloric intake to maintain/achieve ideal body weight, emphasizing on fruits, vegetables, whole grains, and fat-free or low-fat products. These include lean meats, poultry, fish, beans, eggs, and nuts and foods that are low in saturated fats, trans-fats, cholesterol, salt (sodium), and glycemic index. Stressed the importance of regular exercise up to the patient's capacity limits. In this case, we recommend 20 min daily walking, 2 days a week of resistance training. Patient to monitor BP daily and bring records to PCP for further management. Follow-up: 1 week after diagnostic sleep study Not available 09/05/2023 14:46:06 10/09/2023 10/09/2023 D/w pt and her about her findings and further plan of care. Explained about different options. Pt declined to go to ED at this time. Pt declined for cardiology referral. Meds as directed. Good liquid and fiber intake explained. Fall risk precautions explained in detail. Educated pt about alarming symptoms to monitor at home and call us back or get checked in ED. Pt verbalized understanding it. Cont f/u with Neuro as per schedule. F/u in few weeks as directed. [email or web address] Not available 10/09/2023 11:24:02 11/08/2023 11/08/2023 Assessment: Mild OSAHS, AHI = 6 Plan: The following were reviewed and explained to the patient: [facility] diagnostic sleep study 11/06/23 AHI = 6, REM AHI = 8 General information on sleep disordered breathing, evaluation of sleep disordered breathing, treatment with PAP therapy, and living with PAP therapy were covered. PSG is medically necessary to determine the management of sleep apnea. We discussed with the patient the impact of weight on: Sleep disordered breathing Hyperlipidemia DERECK Osteopenia Lumbar spondylosis We discussed with the patient the benefit of PAP therapy on: Sleep disordered breathing Depression/Anxie ty DERECK Educated the patient on sleep hygiene measures. Relaxing rituals to rest easy, understanding foods with positive and negative impact on sleep, creating a peaceful sleep environment, timing of exercise, using herbal sleep aids, and practicing sleep-friendly meditation were covered. To determine how much sleep is needed, the patient will assess where she falls on the spectrum, examine what lifestyle factors such as work schedules and stress are affecting the quality and quantity of sleep. In general, adults need 7-9 hours of sleep. Educated the patient regarding foods that promote sleep. These include but are not limited to cherries, bananas, toast, oatmeal, and warm milk. Educated the patient regarding foods and drinks to avoid before bedtime. These include but are not limited to aged cheese, chocolate, spicy foods, tomato-based sauces, soy, ginseng tea and processed meat. Advocated influenza vaccination annually and pneumonia vaccination in 2024. Encouraged patient to adjust caloric intake to maintain/achieve ideal body weight, emphasizing on fruits, vegetables, whole grains, and fat-free or low-fat products. These include lean meats, poultry, fish, beans, eggs, and nuts and foods that are low in saturated fats, trans-fats, cholesterol, salt (sodium), and glycemic index. Stressed the importance of regular exercise up to the patient's capacity limits. In this case, we recommend 20 min daily walking, 2 days a week of resistance training. Patient to monitor BP daily and bring records to PCP for further management. Follow-up: 1 week after titration sleep study Not available 11/08/2023 12:15:17 12/03/2023 12/03/2023 D/w pt and her about her findings and further plan of care. MAWV questionnaire reviewed with pt. Answered all questions and concerns for the pt. Fall risk precautions explained. All meds verified with pt. Explained about different options. Pt declined to go to ED at this time. Pt declined for cardiology referral. Meds as directed. Good liquid and fiber intake explained. Fall risk precautions explained in detail. Educated pt about alarming symptoms to monitor at home and call us back or get checked in ED. Pt verbalized understanding it. Cont f/u with Neuro as per schedule. Cont f/u with GI as per schedule. F/u as directed. [email or web address] Not available 12/03/2023 14:03:19 Plan of Treatment Reminders Order Date Submit Date Provider Last Modified By Organization Details Last Modified Time Details Appointments None recorded. Lab lipid panel, serum 2022 023 [facility] (Lab), [address] [place], [address], 3 08:32:48 Referral sleep medicine referral - patient with RLS, Parkinsons, and Tardive Dyskinesia. Not feeling rested. Unsure if sleep study needed at home, vs in lab study for monitoring patient. Eval and treat. 2022 023 heath Sanders MD, [address] [place], [address], 3 12:20:45 Procedures None recorded. Surgeries None recorded. Imaging polysomnogr am, titration study - no auth required [address], [address] [place], [address], 5 14:21:10 polysomnogr am, diagnostic, 6 yrs or older - no auth required 2022 023 [facility], [address] [place], [address], 4 09:37:39 Medication Orders polyethylen e glycol 3350 17 gram/dose oral powder 2023 024 [facility] [address] [place], [address], 4 12:50:54 docusate sodium 100 mg capsule 2023 024 [facility] [address] [place], [address], 4 12:50:55 famotidine 20 mg tablet 2023 024 [facility] [address] [place], [address], 4 12:50:56 rosuvastati n 5 mg tablet 2023 024 [facility] [address] [place], [address], 4 12:50:55 polyethylen e glycol 3350 17 gram/dose oral powder 2023 024 [facility] [address] [place], [address], 4 10:53:55 docusate sodium 100 mg capsule 2023 024 [facility] [address] [place], [address], 4 10:53:56 famotidine 20 mg tablet 2023 024 [facility] [address] [place], [address], 4 10:53:57 Patient TargetsNo targets recorded. Patient Instructions Encounter Date Encounter Id Patient Instructions Last Modified By Organization Details Last Modified Time 07/18/2023 [id number] FU in 6 mo for check up, sooner if needed. Not available 07/18/2023 11:45:49 12/03/2023 [id number] dementia rating scale-2* [email or web address] Not available 12/03/2023 14:02:18 alcohol misuse* [email or web address] Not available 12/03/2023 14:02:18 depression screening* Not available 12/03/2023 14:02:18 multi-dimensiona l health assessment questionnaire* [email or web address] Not available 12/03/2023 14:02:18 Personalized a [facility] Plan and Screening Recommendations Advance Directives - Do you have one? No Advance Directives - Do we have your advance directive on file in your health record? Primary Prevention/Interven tion (prevents or decreases the chance of common diseases from occurring) Smoking Risk: Non Smoker i have no recommendions Alcohol Misuse Screening: Negative I have no recommendions Weight: Appropriate continue your current weight loss efforts Physical activity: Need more exercise/physical activity minimum of 10-20 minutes of activity that causes mild breathlessness/day Nutrition: Average Eat Heart Healthy Diet Fall Risk (screened today): Intermediate I have no recommendions; Parkinson's Vaccines Pneumococcal: No further needed Influenza: Your next one in the fall of this year Chronic Disease Risks Stroke: Low Risk I have no recommendations Heart Attack: Low risk I have no recommendations Clogging of the Arteries: Low risk I have no recommendations Diabetes: Low Risk I have no recommendations Secondary Prevention/Interven tion (detects treatable diseases before they may cause symptoms, disability, or ) Breast Cancer Screening with mammogram: Recommended today Cervical/Uterine/Ov aníbal Cancer Screening: Recommended today, but you have declined Osteoporosis Screening: No screening necessary Date Screening Last Performed: Colon Cancer Screening: Colonoscopy Recommended today Date Screening Last Performed: Eye Disease Screening: No Eye exam necessary Dementia Risk: Intermediate I have no recommendations: Parkinson's Depression Screening: Negative Active diagnosis, Continue current treatment plan Not available 12/03/2023 13:09:36 Reason for Referral Sleep Medicine Referral for Restless sleep patient with RLS, Parkinsons, and Tardive Dyskinesia. Not feeling rested. Unsure if sleep study needed at home, vs in lab study for monitoring patient. Eval and treat. Referring Physician: Valentine Lemus, Family Medicine, Encounter Date: 07/18/2023 Results Created Date Observation Date Name Description Value Unit Range Abnormal Flag Note LastModifiedBy Organization Detail LastModifiedTime 08/15/2008/15/2023 MAMMO , scree yash, digit al, bilat eral No observ ation record ed. [email or web address] [facility] [address], [place], [address], 10/09/2023 10:59:48 11/08/19 24 11/06/2023 polys omnog deb, diagn ostic , 6 yrs or older No observ ation record ed. [facility] [address] [place], [address], 12/03/2023 12:45:44 Result Notes None recorded. Problems Name Problem SNOMED Code Status Onset Date Resolution Date Notes Provider Name and Address Organization Details Recorded Time Lumbar spondylosis 190193472 Active 2022 Not Available [employer] 3 00:27:23 Gastroesophag eal reflux disease 082290876 Active 2022 Not Available [facility] 3 00:27:23 Restless legs 13657197 Active 2022 [facility] Available [facility] 3 00:27:23 Genital herpes simplex 91957704 Active 2022 Not Available [facility] 3 00:27:23 Depressive disorder 22434070 Active 2022 Not Available [facility] 3 00:27:24 Hyperlipidemi a 56813261 Active 2022 Not Available [facility] 3 00:27:24 Tardive dyskinesia 829115857 Active 2022 Valentine Lemus NP [address], [address], [place], [address] , [employer] [facility] 3 11:40:51 Parkinson's disease 46174218 Active 2022 Valentine Lemus NP [address], [address], [place], [address] , [employer] [facility] 3 11:41:16 Mixed anxiety and depressive disorder 544180866 Active 2022 Valentine Lemus NP [address], [address], [place], [address] , [employer] [facility] 3 11:41:48 Sleep apnea 81823259 Active 2022 Craig Sanders MD [address], [address], [place], [address] , [employer] [facility] 3 14:16:41 Chronic idiopathic constipation 42002975 Active 2023 David Barahona MD [address], [address], [place], [address] , [employer] [facility] 4 10:50:35 Near syncope 613438125 Active 2023 David Barahona MD [address], [address], [place], [address] , [employer] 4 11:24:44 Gastroesophag eal reflux disease without esophagitis 558987247 Active 2023 David Barahona MD [address], [address], [place], [address] , [facility] [email or web address] [facility] [employer] 4 12:32:13 Notes:Medical History: Parki nson's disease Tardive dyskinesia Depression/Anxiety Mild OSAHS, AHI = 6, 11/06/23 Hyperlipidemia DERECK Left renal calculus HSV-2 infection RLS Vit D deficiency Osteopenia Lumbar spondylosis Procedure History: None 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 Procedures Surgical History Date Name Laterality Status Provider Name and Address Organization Details Recorded Time 4 Medicare Wellness CPT Code, Initial completed December [facility] [place] [employer] 12/03/2023 12:54:28 3 Most Recent Mammogram completed Valentine Lemus NP [address], [address], [place], [address], [employer] 08/16/2023 07:48:40 Imaging Results None recorded. Procedure Notes None recorded. Medical Equipment None Reported. Allergies No known drug allergies Medications Name Sig Start Date Stop Date Status Note LastModified by Organization Details LastModified Time amantadine HCl 100 mg tablet TAKE ONE TABLET BY MOUTH ONCE DAILY FOR 2 WEEKS, THEN INCREASE TO 1 TAB TWICE DAILY active Not Available Not Available No t Available citalopram 40 mg tablet TAKE 1 TABLET BY MOUTH ONCE DAILY active Not Available Not Available No t Available clorazepat e dipotassiu m 3.75 mg tablet TAKE 1 TABLET BY MOUTH TWICE DAILY NEEDED FOR ANXIETY 09/05 completed Naseer , neuro Not Available Not Available Not Available hydrocodon e 5 mg-acetami nophen 325 mg tablet TAKE 1 TABLET BY MOUTH EVERY 6 HOURS NEEDED FOR PAIN active Not Available Not Available No t Available Medrol (Jayjay) 4 mg tablets in a dose pack Take po as directed on label 03/06 completed Not Available Not Available Not Available acyclovir 400 mg tablet active Not Available Not Available Not Available FiberCon 625 mg tablet Take 1 tablet every day by oral route. 09/05 completed Not Available Not Available Not Available famotidine 20 mg tablet TAKE 1 TABLET BY MOUTH TWICE DAILY DIRECTED active Not Available Not Available No t Available ropinirole 0.25 mg tablet active Not Available Not Available Not Available doxepin 100 mg capsule active Not Available Not Available Not Available mirtazapin e 30 mg tablet TAKE 1 TABLET BY MOUTH ONCE DAILY AT BEDTIME active Not Available Not Available No t Available bupropion HCl 75 mg tablet TAKE 1 TABLET BY MOUTH ONCE DAILY FOR 30 DAYS active Not Available Not Available No t Available docusate sodium 100 mg capsule Take 1 capsule twice a day by oral route as directed for 90 days. 2023 active Not Available Not Available Not Avai lable omeprazole 20 mg capsule,de layed release Take 1 capsule by mouth once daily active Not Available Not Available No t Available mirtazapin e 45 mg tablet TAKE 1 TABLET BY MOUTH EVERY DAY AT BEDTIME active Not Available Not Available No t Available diclofenac sodium 75 mg tablet,del ayed release Take 1 tablet twice a day by oral route as needed. 09/05 completed Not Available Not Available Not Available polyethyle ne glycol 3350 17 gram/dose oral powder Take 17 g every day by oral route as directed for 90 days. 2023 active Not Available Not Available Not Avai lable carbidopa 25 mg-levodop a 100 mg tablet TAKE 2 TABLETS BY MOUTH THREE TIMES DAILY active Not Available Not Available No t Available rosuvastat in 5 mg tablet Take 1 tablet by mouth once daily active Not Available Not Available No t Available quetiapine ER 400 mg tablet,ext ended release 24 hr TAKE 2 TABLETS BY MOUTH ONCE DAILY AT BEDTIME active Not Available Not Available No t Available quetiapine ER 300 mg tablet,ext ended release 24 hr TAKE 2 TABLETS BY MOUTH ONCE DAILY AT BEDTIME 07/18 completed Not Available Not Available Not Available quetiapine ER 200 mg tablet,ext ended release 24 hr TAKE 2 TABLETS BY MOUTH ONCE DAILY AT BEDTIME 10/12 completed Not Available Not Available Not Available cholecalci ferol (vitamin D3) 125 mcg (5,000 unit) tablet Take 1 tablet every 24 hours by oral route for 90 days. 11/08 completed Not Available Not Available Not Available Ingrezza 40 mg capsule 03/[address] Naseer , Neuro Not Available Not Available Not Available Ingrezza 80 mg capsule active Not Available Not Available Not Available Vitals Date Recorded Heart rate Respiratory rate Oxygen saturation Oxygen saturation in Arterial blood by Pulse oximetry Provider Name and Address Organization Details Last Updated DateTime 10/09/2023 98 /min 30 /min 96 % 96 % David Barahona MD [address] [facility] [facility] [address], [place], [address], [facility] [employer] [facility] 4 11:26:11 Date Recorded Body height Body mass index (BMI) Body weight Body temperature Systolic And Diastolic Provider Name and Address Organization Details Last Updated DateTime 10/09/2023 160.02 cm 18.8 kg/m2 66093.1 4 g 97.1 [degF] 130/80 mm[Hg] Shailesh Oconnor [facility] [employer] [facility] 4 10:44:40 Date Recorded Heart rate Heart rate Respiratory rate Provider Name and Address Organization Details Last Updated DateTime 11/08/2023 99 /min 99 /min 19 /min Craig Sanders MD [address] [facility] [facility] [address], [place], [address], [facility] [employer] [facility] 11/08/2023 12:23:14 Date Recorded Body height Body mass index (BMI) Body weight Body temperature Oxygen saturation Oxygen saturation in Arterial blood by Pulse oximetry Systolic And Diastolic Provider Name and Address Organization Details Last Updated DateTime 4 157.48 cm 19.4 kg/m2 36911.7 9 g 97.5 [degF] 96 % 96 % 106/62 mm[Hg] Nara Enriquez MA [facility] [employer] [facility] 4 11:15:18 Date Recorded Body height Body mass index (BMI) Body weight Body temperature Heart rate Respiratory rate Oxygen saturation Oxygen saturation in Arterial blood by Pulse oximetry Systolic And Diastolic Provider Name and Address Organization Details Last Updated DateTime 4 157.48 cm 19 kg/m2 48727.3 1 g 98.1 [degF] 86 /min 20 /min 97 % 97 % 108/60 mm[Hg] Shailesh Oconnor [facility] [employer] [facility] 12:37:09 Date Recorded Body height Body mass index (BMI) Body weight Body temperature Heart rate Respiratory rate Oxygen saturation Oxygen saturation in Arterial blood by Pulse oximetry Systolic And Diastolic Provider Name and Address Organization Details Last Updated DateTime 3 160.02 cm 20.4 kg/m2 36951.1 7 g 95.9 [degF] 82 /min 20 /min 95 % 95 % 130/70 mm[Hg] Valentine Massey RN [facility] [employer] [facility] 3 12:56:58 Date Recorded Heart rate Oxygen saturation Oxygen saturation in Arterial blood by Pulse oximetry Heart rate Respiratory rate Provider Name and Address Organization Details Last Updated DateTime 3 111 /min 95 % 95 % 111 /min 19 /min Craig Sanders MD [address] [facility] [facility] [address], [place], [address], [facility] [employer] [facility] 3 14:38:38 Date Recorded Body height Body mass index (BMI) Body weight Body temperature Systolic And Diastolic Provider Name and Address Organization Details Last Updated DateTime 09/05/2023 160.02 cm 20.2 kg/m2 72949.5 3 g 97.2 [degF] 126/70 mm[Hg] Maia Stoddard MA [facility] [employer] [facility] 3 14:20:50 Social History Question Answer Notes LastModified by Organizat ion Details LastModified Time Tobacco Smoking Status Former Smoker Not Available [facility] 11/30/2022 00:26:11 Do You Have An Advance Directive? No [id number] Information not available 11/30/2022 Is Blood Transfusion Acceptable In An Emergency? Yes Information not available 03/06/2023 What Is Your Level Of Caffeine Consumption? Moderate Pepsi Information not available 03/06/2023 What Is Your Code Status? DNR [id number] Information not available 11/30/2022 In The 14 Days Before Symptom Onset, Have You Had Close Contact With A Laboratory-confirm ed COVID-19 While That Case Was Ill? No [id number] Information not available 11/30/2022 In The 14 Days Before Symptom Onset, Have You Had Close Contact With A Person Who Is Under Investigation For COVID-19 While That Person Was Ill? No [id number] Information not available 11/30/2022 What Type Of Diet Are You Following? REGULAR [id number] Information not available 11/30/2022 What Is The Highest Grade Or Level Of School You Have Completed Or The Highest Degree You Have Received? [id number] [id number] Information not available 11/30/2022 Do You Have An Electrostatic Air Filter? No Information not available 09/05/2023 Have There Been Any Changes To Your Family Or Social Situation? No [id number] Information not available 11/30/2022 When Did You Quit Smoking? 1-5yearssince lastcigarette [id number] Information not available 11/30/2022 Are There Any Guns Present In Your Home? Yes [id number] Information not available 11/30/2022 Do You Have A Humidifier? No Information not available 09/05/2023 Do You Use Insect Repellent Routinely? No Information not available 03/06/2023 Where Do You Live? Apartment [id number] [id number] Information not available 11/30/2022 Do You Have A Medical Power Of Malt Roaster? No [id number] Information not available 11/30/2022 Do You Have Moisture Problems In Your Home? No Information not available 09/05/2023 What Was The Date Of Your Most Recent Tobacco Screening? 12/03/2023 Information not available 12/03/2023 Do You Have Any Pets? Yes [id number] Information not available 11/30/2022 What Is Your Relationship Status? Single [id number] Information not available 11/30/2022 Do You Use Your Seat Belt Or Car Seat Routinely? Yes Information not available 03/06/2023 Do You Have Smoke And Carbon Monoxide Detectors In Your Home? Yes [id number] Information not available 11/30/2022 At What Age Did You Start Smoking Tobacco? 15 Information not available 11/08/2023 Are You Passively Exposed To Smoke? No Information no t available 09/05/2023 Are There Any Smokers In Your House? No [id number] Information not available 11/30/2022 Do You Participate In Social Media? No Information not available 03/06/2023 Do You Use Sunscreen Routinely? No [id number] Information not available 11/30/2022 How Many Years Have You Smoked Tobacco? 20 Information not available 11/08/2023 Have You Recently Traveled Abroad? No [id number] Information not available 11/30/2022 Do You Have Any Dietary Restrictions? No [id number] Information not available 11/30/2022 Sex: Female Functional Status Question Answer Note LastModified by Organizat ion Details LastModified Time Do you use any illicit or recreational drugs? No Information not available 11/08/2023 Do you or have you ever used any other forms of tobacco or nicotine? No Information not available 11/08/2023 What is your level of alcohol consumption? None [id number] Information not available 11/30/2022 Are you currently employed? No retired Information not available 03/06/2023 Have you been exposed to chemicals or toxins? No Information not available 09/05/2023 What is your exercise level? None [id number] Information not available 11/30/2022 Mental Status Question Answer Note LastModified by Organizat ion Details LastModified Time Do you feel stressed (tense, restless, nervous, or anxious, or unable to sleep at night)? [id number] Information not available 11/30/2022 Family History Relationship Description Onset Age of this Age Resolved Age Notes LastModified by Organization Details LastModified Time Father Diabetes mellitus [id number] Not available 11/30/2022 00:26:23 Mother Malignant tumor of colon 67 [id number] Not available 11/30/2022 00:26:23 Medical History Condition Response HIGH CHOLESTEROL / HYPERLIPIDEMIA Y DEPRESSION (INCLUDING POST ) Y HYPERTENSION Y ANXIETY DISORDER Y Gynecological History Statement/Question Response How many live births 2 If Post Menopausal, Age at Menopause 41 Date of Last Mammogram 10/17/2022 Date of Last Colonoscopy Most Recent Bone Density Date of Last Pap Smear Most Recent Mammogram 08/15/2023 Obstetrics History GPAL:G 2 P 0 0 0 0 Immunizations Vaccine Type Date Status Note Provider Nam e and Address Organization Details Recorded Time influenza, unspecified formulation 2 completed Not Available [facility] 11/30/2022 00:28:31 SARS-COV-2 (COVID-19) vaccine, UNSPECIFIED 2 completed Not Available [facility] 11/30/2022 00:28:31 SARS-COV-2 (COVID-19) vaccine, UNSPECIFIED 1 completed Not Available [facility] 11/30/2022 00:28:31 SARS-COV-2 (COVID-19) vaccine, UNSPECIFIED 1 completed Not Available [facility] 11/30/2022 00:28:32 SARS-COV-2 (COVID-19) vaccine, UNSPECIFIED 1 completed Not Available [facility] 11/30/2022 00:28:32 Past Encounters Encounter ID Performer Location Encounter Start Date Encounter Closed Date Diagnosis/Indication Diagnosis SNOMED-CT Code Diagnosis ICD10 Code Diagnosis Note [id number] David Barahona MD [address] [address] 10/12/2022 00:00:00 10/15/2022 18:28:02 [id number] David Barahona MD [address] [address] 11/02/2022 00:00:00 11/03/2022 08:13:41 [id number] Valentine Lemus NP [address] [address] 03/06/2023 14:11:16 03/06/2023 15:06:22 Hyperlipidemia 03259242 E78.5 Rosuvastat in 5 mg po nightly.Lo w fat diet. Depressive disorder 1338 9007 F32.A Sasha Post, Psych Genital he rpes simplex 97713322 A60.9 acyclovir 400 mg po daily. Restless legs 35144686 G 25.81 Ropinirole 0.25 mg po nightly Lumbar spondylosis 59495 0009 M47.896 Gastroesop hageal reflux disease 779958388 K21.9 Omeprazole 20 mg po daily. Insomnia 928387050 G47.0 0 Seeing psych- on mirtazepin e, quetiapine , ropinirole Screening for malignant neoplasm of breast 948072845 Z12.39 mammogram bilateral ordered 03/06/23 [id number] Valentine Lemus NP [address] [address] 03/27/2023 15:02:54 03/27/2023 16:22:36 Hyperlipidemia 68290673 E78.5 Rosuvastat in 5 mg po nightly.Lo w fat diet. Restless legs 74455095 G 25.81 Ropinirole 0.25 mg 3 tabs po nightly Constipation 11180917 K5 9.00 Docusate sodium, add on fiberCon 2 tab po daily. [id number] Valentine Lemus NP [address] [address] 07/18/2023 11:23:44 07/18/2023 11:24:14 Hyperlipidemia 36185913 E78.5 Rosuvastat in 5 mg po nightly.Lo w fat diet. Restless legs 20578814 G 25.81 Ropinirole 0.25 mg 3 tabs po nightly Constipation 35113461 K5 9.00 Docusate sodium, add on fiberCon 2 tab po daily. Tardive dyskinesia 17793 9007 G24.01 Psych Sasha Sincere- khalida. Parkinson's disease 4904 9000 G20.A1 carbidopa/ levodopa from neuro, Dr. Woodson. Mixed anxi ety and depressive disorder 291135605 F41.8 Psych Ayala Post- Bupropion, citalopram , mirtazepin e, quetiapine Gastroesop hageal reflux disease 661354676 K21.9 Omeprazole 20 mg po daily. Restless sleep 40238318 G47.9 sleep medicine referral made. [id number] Craig Sanders MD [facility] [address] [address] 09/05/2023 13:57:04 09/06/2023 08:38:31 Sleep apnea 69111093 G47.30 G47.33 G47.36 G47.61 [id number] David Barahona MD [facility] [address] [place] [address] 10/09/2023 10:31:58 10/09/2023 11:29:25 Chronic idiopathic constipation 00409268 K59.04 Gastroesop hageal reflux disease without esophagitis 061508892 K21.9 Near syncope 779001085 R 55 Parkinson's disease 4904 9000 G20.A1 Tardive dyskinesia 44508 9007 G24.01 Restless legs 07327235 G 25.81 [id number] Craig Sanders MD [facility] Pulmonolo gy [address] [address] 11/08/2023 10:55:13 11/09/2023 08:29:29 Sleep apnea 05957746 G47.33 [id number] David Barahona MD [address] [place] [address] 12/03/2023 12:26:50 12/03/2023 14:03:53 Chronic idiopathic constipation 19572196 K59.04 Gastroesop hageal reflux disease without esophagitis 935954781 K21.9 Near syncope 482972372 R 55 Parkinson's disease 4904 9000 G20.A1 Tardive dyskinesia 03584 9007 G24.01 Restless legs 97025267 G 25.81 Hyperlipidemia 79826623 E78.5 Adult [facility] th examination 873925802 Z00.00 Screening for disorder 421212073 Z13.9 Health Concerns Section Related Observation LastModified by Organization Detai ls LastModified Time None Recorded Concern Status LastModified by Organization Details LastModified Time None Recorded Advance Directives Directive N: Payers Insurance Date Sequence Insurance Name Policy Number Policy Quevedo Covered Member ID Quevedo Member ID Guarantor Name 09/05/2023 1 [facility] ON OR AFTER 03/31/21 (MEDICAID REPLACEMENT - HMO) Priya John [id number] Priya John 12/01/2023 2 [place] Priya John [id number] Priya John 11/30/2023 1 [place] Priya John [id number] Priya John Notes Date Note Type Note Provider Name and Address Organization Details Recorded Time 07/18/2023 text/html Medication follo w up 4 mo. (Computers/internet down for appt, so paper documentation was transferred to [employer]) Lipid- labs in october. Rosuvastatin stable.RLS- Ropinirole helping.Insomnia- still having issues feeling rested. Sleeping several hours but not rested.Parkinsons- seeing neuro Dr. Woodson.TD- Sasha Post prescribing. Still moving and working to get better coverage. On ingrezza. Valentine Lemus NP [address] [facility] [facility] [address], [place], [address], [facility] [employer] 07/18/2023 13:08:40 09/05/2023 text/html Primary care/Ref erring provider: Valentine Lemus NP At home, the patient sleeps from 9 pm to 11 am and wakes up without an alarm. She has a lot of sleep interruptions and only sleeps for a total of 6 hours. Snoring: lightSnorting: noChoking: yesCoughing: yesGasping: yesGagging: yesSighing: yesWitnessed apnea: yesTwitching or jerking of leg(s), arm(s), body, head: yesTeeth grinding: n/aTeeth clenching: n/aSleeptalking: noSleepwalking: noSleep crying: noBedwetting: noTongue/lip/gum/cheek biting: noSleeping with open mouth: yesSleep paralysis: noHypnagogic hallucinations: noHypnopompic hallucinations: noVivid dreams: noDifficulty with sleep onset: yesDifficulty with sleep maintenance: yesSleep interruptions: nocturia x 2Patient wakes up with: fatigue, disorientation, cognitive impairment, mobility impairment, dexterity impairmentDaytime cataplexy: noMorning hypersomnolence: yesAfternoon hypersomnolence: yesCaffeine sources in diet: soda 44 oz per day, chocolate 1 candy bar per day Associated medical and psychiatric conditions:Congestive heart failure: noCoronary artery disease: noMyocardial infarction: noHypertension: noStroke: noBronchial asthma: noChronic obstructive pulmonary disease: noDepression: yesBipolar disorder: noAnxiety: yesPanic disorder: noPosttraumatic stress disorder: noAttention deficit and hyperactivity disorder: noObsessive Compulsive disorder: noSchizophrenia: noSchizoaffective disorder: noPersonality disorder: noChronic analgesic use: noChronic sedative/hypnotic use: yes doxepin EPWORTH SLEEPINESS SCALE (ESS) CHANCE OF DOZING SCORE0 = would never doze1 = slight chance of dozing2 = moderate chance of dozing3 = high chance of dozing SITUATION AND CHANCE OF DOZINGSitting and reading - 1Watching television - 2Sitting inactive in a public place (e.g. a theater or meeting) - 1As a passenger in a car for an hour without a break - 3Lying down to rest in the afternoon when circumstances permit - 3Sitting and talking to someone - 1Sitting quietly after lunch without alcohol - 2In a car, while stopped for a few minutes in the traffic - 2TOTAL SCORE 15Subjectively, patient has a moderate chance of dozing. Craig Sanders MD [address] [facility] [facility] [address], [place], [address], [employer] 09/05/2023 15:04:30 10/09/2023 text/html ACV:Here with dominick kraus. C/o chronic constipation for last many years. Pt is not taking anything regularly, takes otc meds prn. Last BM yesterday and at times, she has some blood in it. Last colonoscopy about 1.5 yrs ago and it was normal. No n/v/fever/chills. Pt also had few near syncopal episodes in last month. Pt lives with her . Pt has Parkinson's disease & TD and she is f/u with Neuro for it. Pt will be going for sleep study in few weeks. David Barahona MD [address] [facility], [place], [address], [employer] 10/09/2023 11:27:15 11/08/2023 text/html Primary care/Ref erring provider: David Barahona MD During the [facility] diagnostic sleep study on 11/06/23, AHI = 6, REM AHI = 8. At home, the patient sleeps from 9 pm to 11 am and wakes up without an alarm. She has a lot of sleep interruptions from involuntary movements and only sleeps for a total of 6 hours. Snoring: lightSnorting: noChoking: yesCoughing: yesGasping: yesGagging: yesSighing: yesWitnessed apnea: yesTwitching or jerking of leg(s), arm(s), body, head: yesTeeth grinding: n/aTeeth clenching: n/aSleeptalking: noSleepwalking: noSleep crying: noBedwetting: noTongue/lip/gum/cheek biting: noSleeping with open mouth: yesSleep paralysis: noHypnagogic hallucinations: noHypnopompic hallucinations: noVivid dreams: noDifficulty with sleep onset: yesDifficulty with sleep maintenance: yesSleep interruptions: nocturia x 2Patient wakes up with: fatigue, disorientation, cognitive impairment, mobility impairment, dexterity impairmentDaytime cataplexy: noMorning hypersomnolence: yesAfternoon hypersomnolence: yesCaffeine sources in diet: soda 44 oz per day, chocolate 1 candy bar per day Associated medical and psychiatric conditions:Congestive heart failure: noCoronary artery disease: noMyocardial infarction: noHypertension: noStroke: noBronchial asthma: noChronic obstructive pulmonary disease: noDepression: yesBipolar disorder: noAnxiety: yesPanic disorder: noPosttraumatic stress disorder: noAttention deficit and hyperactivity disorder: noObsessive Compulsive disorder: noSchizophrenia: noSchizoaffective disorder: noPersonality disorder: noChronic analgesic use: noChronic sedative/hypnotic use: yes doxepin EPWORTH SLEEPINESS SCALE (ESS) CHANCE OF DOZING SCORE0 = would never doze1 = slight chance of dozing2 = moderate chance of dozing3 = high chance of dozing SITUATION AND CHANCE OF DOZINGSitting and reading - 0Watching television - 1Sitting inactive in a public place (e.g. a theater or meeting) - 0As a passenger in a car for an hour without a break - 2Lying down to rest in the afternoon when circumstances permit - 2Sitting and talking to someone - 0Sitting quietly after lunch without alcohol - 1In a car, while stopped for a few minutes in the traffic - 0TOTAL SCORE 6Subjectively, patient has a slight chance of dozing. Craig Sanders MD [address] [facility], [address] [address], [place], [address], [facility] [email or web address] [facility] [employer] 11/08/2023 12:23:17 12/03/2023 text/html FUV:Here with dominick kraus. Pt is here for f/u on her meds and chronic conditions. Doing overall much better than last visit. Denies any more passing out episodes since her last visit. Pt is also due for the MAWV and wants to get it done today. C/o chronic constipation for last many years. Pt is not taking anything regularly, takes otc meds prn. Last BM yesterday and at times, she has some blood in it. Last colonoscopy about 1.5 yrs ago and it was normal. No n/v/fever/chills. Pt also had few near syncopal episodes in last month. Pt lives with her . Pt has Parkinson's disease & TD and she is f/u with Neuro for it. David Barahona MD [address] [facility], [facility] [address], [place], [address], [employer] 12/03/2023 14:03:42 OBGyn Episode No OBEpisode recorded.
--- OUTSIDE RECORDS SUMMARY | 2025-04-18 10:31 | XMS_ITS | Clinical Summary ---
Author Organization [facility] Address [facility] [place] [address] Care Team Providers Care Forest Pathology Professor Name Role Phone Jack Ortiz Primary Care Provider + Allergies No known active allergies Medications atorvastatin 20 MG tablet Take 20 mg by mouth nightly at bedtime. Active DOXEPIN HCL OR Activ e acyclovir 400 MG tablet Take 400 mg by mouth every 4 (four) hours while awake. Active aripiprazole 2 MG tablet Take 2 mg by mouth daily. Active fluoxetine 20 MG capsule Take 20 mg by mouth daily. Active fluoxetine 40 MG capsule Take 40 mg by mouth daily. Active fluticasone 110 MCG/ACT inhaler Inhale 1 puff into the lungs 2 (two) times daily. Active clorazepate (TRANXENE) 3.75 MG tablet 04/12/2022 Active carbidopa-levod opa (SINEMET) 25-100 MG tablet Take 1 tablet by mouth 3 (three) times daily. Active rOPINIRole (REQUIP) 0.25 MG tablet Take 0.25 mg by mouth once. Active Family History Medical History Relation Comments Cancer Mother liver and colon ca Relation Status Comments Father from non-hodgkins lymphoma Mother Social History Tobacco Use Types Packs/Day Years Used Date Smoking Tobacco: Never Smokeless Tobacco: Never Alcohol Use Standard Drinks/Week Comments No 0 (1 standard drink = 0.6 oz pur e alcohol) AUDIT-C Answer Date Recorded Frequency of Alcohol Consumption Never 01/08/2019 Average Number of Drinks Not on file 019 Frequency of Binge Drinking Not on file 12/30 Comments No Sex and Gender Information Value Date Recorded Sex Assigned at Not on file Legal Sex Female 7:49 PM CDT Gender Identity Not on file Sexual Orientation Not on file Last Filed Vital Signs Vital Sign Reading Time Taken Comments Blood Pressure 101/67 05/15/2022 3:11 PM CDT Pulse 87 05/15/2022 3:11 PM CDT Temperature 36.2 C (97.2 F) 05/15/2022 3:02 PM CDT Respiratory Rate 29 05/15/2022 3:11 PM CDT Oxygen Saturation 92% 05/15/2022 3:11 PM CDT Inhaled Oxygen Concentration - - Weight 61.2 kg (135 lb) 05/04/2022 2:59 PM CDT Height 160 cm (5' 3) 05/04/2022 2:59 PM CDT Body Mass Index 23.91 05/04/2022 2:59 PM CDT Plan of Treatment Health Maintenance Due Date Last Done Comments Hepatitis C 1977 Mammogram Screening 1999 Pneumococcal Vaccine: 50+ Years (1 of 1 - PCV) 2009 Zoster Vaccines (1 of 2) 2009 COVID-19 Vaccine (5 - season) 2024 09/25/2021, 08/26/2021, 01/09/2021, Additional history exists Dexa Scan (General) 2024 DTaP, Tdap and Td Vaccines (2 - Td or Tdap) 12/22/2031 12/21/2021 Colorectal Cancer Screening Colonoscopy (10 Years) 05/15/2032 05/15/2022, 05/15/2022, 01/09/2019 RSV Immunization or 60+ Years (1 - 1-dose 75+ series) 2034 Meningococcal B Vaccine Aged Out No l onger eligible based on patient's age to complete this topic Meningococcal Vaccine Aged Out No ro suyapa eligible based on patient's age to complete this topic RSV Immunizations Under 20 Months Aged Out No longer eligible based on patient's age to complete this topic Procedures Procedure Name Priority Date/Time Associated Diagnosis Comments COLONOSCOPY Routine 05/15/2022 2:06 PM CDT from Last 3 Months or Most Recently Relevant to Health Maintenance Results * Colonoscopy (05/15/2022 2:06 PM CDT) Narrative Dennis Ryder MD - 05/15/2022 2:06 PM CDT Dennis Ryder MD 05/15/2022 3:07 PM DENNIS RYDER MD, FACG, FACP COLONOSCOPY 05/15/2022 This is a 61-year-old female with history of Parkinson's, HLD, GERD and Depression who now presents for colonoscopy for personal history of adenomatous colon polyps and mother with colon cancer. GI review of systems is o/w negative. No endocarditis risk factors. No Known Allergies Meds: see list. VITALS: Stable. LUNGS: Clear. HEART: RRR. S1/S2 normal. ABDOMEN: NABS/NT. The procedure of colonoscopy, its indications, alternatives of barium studies and risks including perforation, bleeding, infection, reaction to medication as well as the possible need for blood or surgery were discussed with the patient prior to the procedure. The patient voices understanding, agrees to proceed and provides informed consent. INDICATION: Personal history of colon polyps/Family history of colon cancer. POST-OP: One polyp removed. SEDATION: Per Anesthesia PREP: Good. With the patient in the left lateral decubitus position, the Olympus [id number] colonoscope was introduced into the rectum and advanced easily to the Terminal Ileum. Careful inspection of the mucosa was made upon insertion and withdrawal of the endoscope. FINDINGS: Terminal ileum: distal 5 cm normal. Cecum, Ascending colon, Transverse colon, Descending colon and Rectum including retroflexion normal. Sigmoid colon: 1.0 cm sessile polyp removed with snare polypectomy without bleed. No masses, AVMs, colitis or diverticulosis seen. No complications, blood loss or implants. ASSESSMENT AND PLAN: Personal history of colon polyps/Family history of colon cancer: - One polyp removed - If adenomatous repeat colonoscopy in three years, otherwise repeat colonoscopy in five years Thank you for allowing me to care for your patient. She will follow-up with HUNTER Ortiz as needed. Dennis Ryder M.D. 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
--- OUTSIDE RECORDS SUMMARY | 2025-04-18 10:31 | XMS_ITS | Data Portability ---
Author Organization [facility] Address [address] [place] [address] Care Team Providers Care Licensed Practical Nurse Instructor Name Role Phone ANGELITA SERRANO Primary Care Provider [phone] Assessment No assessment recorded. Plan of Treatment Reminders Order Date Submit Date Provider Last Modified By Organization Details Last Modified Time Details Appointments ANY 15 2024 01:00P M HUNTER COOLEY Not available Not available Not available Lab CMP, serum or plasma 2023 024 CECI Harvey, [address], [place], [address], 05/15/2024 08:32:10 lipid panel, serum 2023 024 CECILULU Harvey, [address], [place], [address], 05/15/2024 08:32:09 CBC w/ auto diff 2023 024 CECILULU Harvey, [address], [place], [address], 05/15/2024 08:32:11 TSH + free T4, serum 2023 024 CECI Harvey, [address], [place], [address], 05/15/2024 08:32:08 HbA1c (hemoglob in A1c), blood 2023 024 CECI Harvey, [address], [address], [place], [address], 05/15/2024 08:32:10 Referral gastroent erologist referral 2023 024 [place] [address] Ashely Helms MD, [address], [address], [place], [address], 08/08/2024 07:51:08 Procedures None recorded. Surgeries None recorded. Imaging MAMMO, screening , bilateral [address] [facility], [address], [place], [address], 12/24/2024 08:16:45 MAMMO, screening , bilateral [address] [facility], [address], [address], 08/07/2024 08:07:17 LDCT, chest, for lung cancer screening [address] (Imaging), [address] [address], [place], [address], 05/21/2024 08:00:21 MAMMO, screening , bilateral 2022 023 [facility], [address], [address], 09/03/2023 12:50:18 MAMMO, screening , bilateral 2022 023 [facility], [address], [address], 08/21/2023 16:36:24 Medication Orders omeprazol e 40 mg capsule,d elayed release 2024 025 [facility], [address] [place], [address], 12/11/2024 12:08:43 ropinirol e 0.5 mg tablet 2023 024 [facility], [address] [place], [address], 05/14/2024 11:34:09 carbidopa 25 mg-levodo pa 100 mg tablet 2022 023 [facility], [address] [place] [address] [address], [place], [place], [id number], 05/21/2023 16:15:55 acyclovir 400 mg tablet 2021 [facility], [address] [place], [address], 09/05/2022 17:54:53 doxepin 100 mg capsule 2021 022 [facility], [address] [place], [address], 09/05/2022 17:54:53 omeprazol e 20 mg capsule,d elayed release 2021 022 [facility], [address] [place], [address], 12/11/2024 12:13:51 rosuvasta tin 5 mg tablet 2021 022 [facility], [address] [place], [address], 09/05/2022 17:54:53 ropinirol e 0.25 mg tablet 2021 022 [facility], [address] [place], [address], 12/11/2024 12:12:50 carbidopa 25 mg-levodo pa 100 mg tablet 2021 022 [facility], [address] [place], [address], 09/05/2022 17:54:53 citalopra m 40 mg tablet 2021 022 [facility], [address] [place], [address], 09/05/2022 17:54:53 Patient TargetsNo targets recorded. Patient Instructions Encounter Date Encounter Id Patient Instructions Last Modified By Organization Details Last Modified Time 09/05/2022 [id number] insomnia: care instructions [facility] Not available 09/05/2022 12:37:14 gastroesophageal reflux disease (GERD): care instructions [facility] Not available 09/05/2022 12:37:15 chronic obstruct bandar pulmonary disease (COPD): care instructions [facility] Not available 09/05/2022 12:37:15 learning about c opd and how to prevent lung infections si Not available 09/05/2022 12:37:15 high cholesterol : care instructions [facility] Not available 09/05/2022 12:37:15 restless legs syndrome: care instructions [facility] Not available 09/05/2022 12:37:15 parkinson's dise ase: care instructions [facility] Not available 09/05/2022 12:37:15 learning about m ood disorders [facility] Not available 09/05/2022 12:37:15 05/21/2023 [id number] mammogram: about this test [facility] Not available 05/21/2023 12:08:27 parkinson's dise ase: care instructions [facility] Not available 05/21/2023 12:08:27 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 for Referral 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 Referral for Hiatal hernia with gastroesophageal reflux Referring Physician: Angelita Serrano, Family Medicine, Encounter Date: 07/24/2024 Results Created Date Observation Date Name Description Value Unit Range Abnormal Flag Note LastModifiedBy Organization Detail LastModifiedTime 05/14/2005/15/2024 TSH+F REE T4 TSH 1.910 uIU/m L 0.450- 4.500 Not Available [facility] ([facility]) [address] [facility], [place], [address], 05/15/2024 08:32:08 05/14/20 24 05/15/2024 TSH+F REE T4 T4,free(dire ct) 0.96 NG/dL 0.82-1 .77 Not Available [facility] ([facility]) [address] [facility], [place], [address], 05/15/2024 08:32:08 05/14/20 24 05/15/2024 LIPID PANEL WITH LDL/H DL RATIO cholesterol, total 167 mg/dL 100-19 9 Not Available [facility] ([facility]) [address] [place], [address], 05/15/2024 08:32:09 05/14/20 24 05/15/2024 LIPID PANEL WITH LDL/H DL RATIO triglyceride s 70 mg/dL 0-149 Not Available [facility] ([facility]) [address] [place], [address], 05/15/2024 08:32:09 05/14/20 24 05/15/2024 LIPID PANEL WITH LDL/H DL RATIO HDL cholesterol 92 mg/dL >39 Not Available [facility] ([facility]) [address] [place], [address], 05/15/2024 08:32:09 05/14/20 24 05/15/2024 LIPID PANEL WITH LDL/H DL RATIO VLDL cholesterol jyoti 13 mg/dL 5-40 Not Available [facility] ([facility]) [address] [place], [address], 05/15/2024 08:32:09 05/14/20 24 05/15/2024 LIPID PANEL WITH LDL/H DL RATIO LDL chol calc ([facility]) 62 mg/dL 0-99 Not Available [facility] ([facility]) [address] [place], [address], 05/15/2024 08:32:09 05/14/20 24 05/15/2024 LIPID PANEL WITH LDL/H DL RATIO LDL/HDL ratio 0.7 ratio 0.0-3. 2 LDL/H DL Ratio Men Women 1/2 Avg.R isk 1.0 1.5 Avg.R isk 3.6 3.2 2X Avg.R isk 6.2 5.0 3X Avg.R isk 8.0 6.1 Not Available [facility] ([facility]) [address] [place], [address], 05/15/2024 08:32:09 05/14/20 24 05/15/2024 COMP. METAB OLIC PANEL (14) glucose 91 mg/dL 70-99 Not Available [facility] ([facility]) [address] [place], [address], 05/15/2024 08:32:09 05/14/20 24 05/15/2024 COMP. METAB OLIC PANEL (14) BUN 19 mg/dL 8-27 Not Available [facility] ([facility]) [address] [place], [address], 05/15/2024 08:32:09 05/14/20 24 05/15/2024 COMP. METAB OLIC PANEL (14) creatinine 0.86 mg/dL 0.57-1 .00 Not Available [facility] ([facility]) [address] [place], [address], 05/15/2024 08:32:09 05/14/20 24 05/15/2024 COMP. METAB OLIC PANEL (14) eGFR 75 mL/mi n/1.7 3 >59 Not Available [facility] ([facility]) [address] [place], [address], 05/15/2024 08:32:09 05/14/20 24 05/15/2024 COMP. METAB OLIC PANEL (14) BUN/creatini ne ratio 22 12-28 Not Available [facility] ([facility]) [address] [place], [address], 05/15/2024 08:32:09 05/14/20 24 05/15/2024 COMP. METAB OLIC PANEL (14) sodium 142 mmol/ L 134-14 4 Not Available [facility] ([facility]) [address] [facility] [place], [address], 05/15/2024 08:32:09 05/14/20 24 05/15/2024 COMP. METAB OLIC PANEL (14) potassium 4.1 mmol/ L 3.5-5. 2 Not Available [facility] ([facility]) [address] [facility] [place], [address], 05/15/2024 08:32:09 05/14/20 24 05/15/2024 COMP. METAB OLIC PANEL (14) chloride 101 mmol/ L 96-106 Not Available [facility] ([facility]) [address] [facility], [place], [address], 05/15/2024 08:32:09 05/14/20 24 05/15/2024 COMP. METAB OLIC PANEL (14) carbon dioxide, total 26 mmol/ L 20-29 Not Available [facility] ([facility]) [address] [facility] [place], [address], 05/15/2024 08:32:09 05/14/20 24 05/15/2024 COMP. METAB OLIC PANEL (14) calcium 9.8 mg/dL 8.7-10 .3 Not Available [facility] ([facility]) [address] [facility] [place], [address], 05/15/2024 08:32:09 05/14/20 24 05/15/2024 COMP. METAB OLIC PANEL (14) protein, total 7.1 g/dL 6.0-8. 5 Not Available [facility] ([facility]) [address] [facility] [place], [address], 05/15/2024 08:32:09 05/14/20 24 05/15/2024 COMP. METAB OLIC PANEL (14) albumin 4.9 g/dL 3.9-4. 9 Not Available [facility] ([facility]) [address] [place], [address], 05/15/2024 08:32:09 05/14/20 24 05/15/2024 COMP. METAB OLIC PANEL (14) globulin, total 2.2 g/dL 1.5-4. 5 Not Available [facility] ([facility]) [address] [place], [address], 05/15/2024 08:32:09 05/14/20 24 05/15/2024 COMP. METAB OLIC PANEL (14) bilirubin, total 0.5 mg/dL 0.0-1. 2 Not Available [facility] ([facility]) [address] [place], [address], 05/15/2024 08:32:09 05/14/20 24 05/15/2024 COMP. METAB OLIC PANEL (14) alkaline phosphatase 172 IU/L 44-121 above high normal Not Available [facility] ([facility]) [address] [place], [address], 05/15/2024 08:32:09 05/14/20 24 05/15/2024 COMP. METAB OLIC PANEL (14) AST (SGOT) 16 IU/L 0-40 Not Available [facility] ([facility]) [address] [place], [address], 05/15/2024 08:32:09 05/14/20 24 05/15/2024 COMP. METAB OLIC PANEL (14) ALT (SGPT) 5 IU/L 0-32 Not Available [facility] ([facility]) [address] [place], [address], 05/15/2024 08:32:09 05/14/20 24 05/15/2024 HEMOG LOBIN A1C hemoglobin A1C 5.5 % 4.8-5. 6 Predi abete s: 5.7 - 6.4 Diabe june: >6.4 Glyce rosemary contr ol for adult s with diabe june: <7.0 Not Available [facility] ([facility]) [address] [facility], [place], [address], 05/15/2024 08:32:10 05/14/20 24 05/15/2024 CBC WITH DIFFE RENTI AL/PL ATELE T WBC 4.7 x10e3 /uL 3.4-10 .8 Not Available [facility] ([facility]) [address] [facility], [place], [address], 05/15/2024 08:32:11 05/14/2005/15/2024 CBC WITH DIFFE RENTI AL/PL ATELE T RBC 4.58 x10e6 /uL 3.77-5 .28 Not Available [facility] ([facility]) [address] [facility], [place], [address], 05/15/2024 08:32:11 05/14/20 24 05/15/2024 CBC WITH DIFFE RENTI AL/PL ATELE T hemoglobin 14.4 g/dL 11.1-1 5.9 Not Available [facility] ([facility]) [address] [facility], [place], [address], 05/15/2024 08:32:11 05/14/2005/15/2024 CBC WITH DIFFE RENTI AL/PL ATELE T hematocrit 43.8 % 34.0-4 6.6 Not Available [facility] ([facility]) [address] [facility], [place], [address], 05/15/2024 08:32:11 05/14/2005/15/2024 CBC WITH DIFFE RENTI AL/PL ATELE T MCV 96 fL 79-97 Not Available [facility] ([facility]) [address] [place], [address], 05/15/2024 08:32:11 05/14/20 24 05/15/2024 CBC WITH DIFFE RENTI AL/PL ATELE T MCH 31.4 pg 26.6-3 3.0 Not Available [facility] ([facility]) [address] [facility], [place], [address], 05/15/2024 08:32:11 05/14/20 24 05/15/2024 CBC WITH DIFFE RENTI AL/PL ATELE T MCHC 32.9 g/dL 31.5-3 5.7 Not Available [facility] ([facility]) [address] [facility], [place], [address], 05/15/2024 08:32:11 05/14/20 24 05/15/2024 CBC WITH DIFFE RENTI AL/PL ATELE T RDW 12.7 % 11.7-1 5.4 Not Available [facility] ([facility]) [address] [facility], [place], [address], 05/15/2024 08:32:11 05/14/20 24 05/15/2024 CBC WITH DIFFE RENTI AL/PL ATELE T platelets 218 x10e3 /uL 150-45 0 Not Available [facility] ([facility]) [address] [facility], [place], [address], 05/15/2024 08:32:11 05/14/20 24 05/15/2024 CBC WITH DIFFE RENTI AL/PL ATELE T neutrophils 64 % notest ab. Not Available [facility] ([facility]) [address] [place], [address], 05/15/2024 08:32:11 05/14/20 24 05/15/2024 CBC WITH DIFFE RENTI AL/PL ATELE T lymphs 25 % notest ab. Not Available [facility] ([facility]) [address] [place], [address], 05/15/2024 08:32:11 05/14/20 24 05/15/2024 CBC WITH DIFFE RENTI AL/PL ATELE T monocytes 9 % notest ab. Not Available [facility] ([facility]) [address] [facility], [place], [address], 05/15/2024 08:32:11 05/14/20 24 05/15/2024 CBC WITH DIFFE RENTI AL/PL ATELE T eos 1 % notest ab. Not Available [facility] ([facility]) [address] [facility], [place], [address], 05/15/2024 08:32:11 05/14/20 24 05/15/2024 CBC WITH DIFFE RENTI AL/PL ATELE T basos 1 % notest ab. Not Available [facility] ([facility]) [address] [facility], [place], [address], 05/15/2024 08:32:11 05/14/20 24 05/15/2024 CBC WITH DIFFE RENTI AL/PL ATELE T neutrophils (absolute) 3.0 x10e3 /uL 1.4-7. 0 Not Available [facility] ([facility]) [address] [facility], [place], [address], 05/15/2024 08:32:11 05/14/20 24 05/15/2024 CBC WITH DIFFE RENTI AL/PL ATELE T lymphs (absolute) 1.2 x10e3 /uL 0.7-3. 1 Not Available [facility] ([facility]) [address] [facility], [place], [address], 05/15/2024 08:32:11 05/14/20 24 05/15/2024 CBC WITH DIFFE RENTI AL/PL ATELE T monocytes(ab solute) 0.4 x10e3 /uL 0.1-0. 9 Not Available [facility] ([facility]) [address] [facility], [place], [address], 05/15/2024 08:32:11 08/14/05/15/2024 CBC WITH DIFFE RENTI AL/PL ATELE T eos (absolute) 0.1 x10e3 /uL 0.0-0. 4 Not Available [facility] ([facility]) [address] [facility], [place], [address], 05/15/2024 08:32:11 05/14/20 24 05/15/2024 CBC WITH DIFFE RENTI AL/PL ATELE T baso (absolute) 0.1 x10e3 /uL 0.0-0. 2 Not Available [facility] ([facility]) [address] [facility], [place], [address], 05/15/2024 08:32:11 05/14/20 24 05/15/2024 CBC WITH DIFFE RENTI AL/PL ATELE T immature granulocytes 0 % notest ab. Not Available [facility] ([facility]) [address] [facility], [place], [address], 05/15/2024 08:32:11 05/14/20 24 05/15/2024 CBC WITH DIFFE RENTI AL/PL ATELE T immature grans (abs) 0.0 x10e3 /uL 0.0-0. 1 Not Available [facility] ([facility]) [address] [facility], [place], [address], 05/15/2024 08:32:11 08/21/20 23 08/15/2023 MAMMO , scree yash, bilat eral No observ ation record ed. [facility] [address] [place] [address] [place] [address], [address], 09/03/2023 12:48:07 05/28/20 24 05/28/2024 LDCT, chest , for lung cance r scree yash No observ ation record ed. [id number] [facility] [address], [place], [address], 05/29/2024 09:08:29 Result Notes None recorded. Problems Name Problem SNOMED Code Status Onset Date Resolution Date Notes Provider Name and Address Organization Details Recorded Time Depressi ve disorder 99453485 Active Not Available [facility] 2 04:47:50 Recurren t herpes simplex 47017506 Active Not Available [facility] 2 04:47:50 Cough 14815028 Active Not Available [facility] 2 04:47:50 Insomnia 959734871 Active HUNTER COOLEY Attn: Accounting ,[address] [facility], [place], [address] , [facility] 4 13:44:32 Tobacco user 862702888 Active quit Nov 19, 2019 Not Available [facility] 2 04:47:50 Acute bronchit is 51674808 Active 2016 Not Available [facility] 2 04:47:50 Chronic obstruct bandar pulmonar y disease 40283587 Active 2016 Not Available [facility] 2 04:47:50 Administ ration of influenz a vaccine Active 2016 [facility] Available [facility] 04:47:50 Nicotine dependen ce 33875468 Completed 201606/07/2017 Jack Ortiz PA-C Attn: Accounting ,[address] [place], [address] , [facility] 0 17:48:17 History of tobacco use 31034428160 03 Active 2016 Not Available [facility] 2 04:47:50 Hyperlip idemia 21588241 Active 2016 Not Available [facility] 2 04:47:50 Screenin g for malignan t neoplasm of colon Active 2017 note in chart 2021, repeat 2024 HUNTER COOLEY Attn: Accounting ,[address] [facility], [place], [address] , [facility] 4 13:48:02 Gastroes ophageal reflux disease 991412720 Active 2018 Not Available [facility] 2 04:47:50 Screenin g for malignan t neoplasm of breast Active 2018 Not Available [facility] 2 04:47:50 Chronic tremor 188320440 Active 2018 right side worse than left side , dropping things , noticeab ly worse these last 6 months , 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 Not Available [facility] 2 04:47:50 Mammogra phy abnormal 089139035 Active 2018 Not Available [facility] 2 04:47:50 Vitamin D deficien cy 33330845 Active 2019 Not Available [facility] 2 04:47:50 Nicotine dependen ce 15582854 Active 2019 Not Available [facility] 2 04:47:50 Chest pain 61608944 Active 2019 Not Available [facility] 2 04:47:50 Electroc ardiogra m abnormal 459250914 Active 2019 Not Available [facility] 2 04:47:50 Tardive dyskines ia 361359120 Active 2019 tongue is always moving ..... HUNTER COOLEY Attn: Accounting ,[address] [place], [address] , [place] [facility] 4 13:44:48 Parkinso n's disease 36271899 Active 2020 HUNTER COOLEY Attn: Accounting ,[address] [place], [address] , [place] [facility] 4 13:44:35 Restless legs 57013219 Active 2020 HUNTER COOLEY Attn: Accounting ,[address] [place], [address] , [place] [facility] 4 13:44:40 Kidney stone 63930476 Active 2021 Not Available [facility] 2 04:47:50 Administ ration of tetanus vaccine Active 2021 Not Available [facility] 2 04:47:50 Herpes simplex 97586958 Active 2021 Not Available [facility] 2 04:47:50 Obstruct bandar sleep apnea syndrome 41883034 Active 2023 HUNTER COOLEY Attn: Accounting ,[address] [place], [address] , [facility] 4 21:08:30 Problem Notes None recorded. Procedures Surgical History Date Name Laterality Status Provider Name and Address Organization Details Recorded Time 2 Date of Last Pap Smear completed Scarlett Hernandez [place] [facility] 01/09/2022 09:35:57 2 Date of Last Mammogram completed HARPER CISNEROS MD Attn: Accounting,[address] [place], [address], [facility] 01/09/2022 10:02:17 2 Most Recent Mammogram completed HARPER CISNEROS MD Attn: Accounting,[address] [place], [address], [facility] - [facility] 01/09/2022 10:02:27 5 Tubal Ligation completed Scarlett Hernandez MA [facility] 01/09/2022 09:37:40 Dilation and Curettage completed Nabila Negrete MA [facility] 09/07/2014 12:47:05 Imaging Results None recorded. Procedure Notes None recorded. Medical Equipment None Reported. Allergies No known drug allergies Medications Name Sig Start Date Stop Date Status Note LastModified by Organization Details LastModified Time Prescripti on - Prior Authorizat ion Request 01/14 completed Not Available Not Available Not Available amantadine HCl 100 mg tablet TAKE ONE TABLET BY MOUTH ONCE DAILY FOR 2 WEEKS, THEN INCREASE TO 1 TAB TWICE DAILY 05/14 completed Not Available Not Available Not Available fluoxetine 40 mg capsule TAKE 1 CAPSULE BY MOUTH ONCE DAILY IN THE EVENING 10/23 completed Not Available Not Available Not Available amoxicilli n 500 mg capsule 05/09 completed Not Available Not Available Not Available promethazi ne-DM 6.25 mg-15 mg/5 mL oral syrup TAKE 5ML BY MOUTH EVERY 6 HOURS 11/10 completed Not Available Not Available Not Available atorvastat in 20 mg tablet 05/10 completed Not Available Not Available Not Available citalopram 40 mg tablet TAKE 1 TABLET BY MOUTH ONCE DAILY active Not Available Not Available No t Available trazodone 50 mg tablet TAKE 1 TABLET BY MOUTH AT BEDTIME 05/10 completed Not Available Not Available Not Available azithromyc in 250 mg tablet TAKE 2 TABLETS (500 MG) BY ORAL ROUTE ONCE DAILY FOR 1 DAY THEN 1 TABLET (250 MG) BY ORAL ROUTE ONCE DAILY FOR 4 DAYS 11/10 completed Not Available Not Available Not Available clorazepat e dipotassiu m 3.75 mg tablet TAKE 1 TABLET BY MOUTH TWICE DAILY NEEDED FOR ANXIETY 05/14 completed Not Available Not Available Not Available fluconazol e 150 mg tablet Take 1 tablet 3 times a week by oral route for 3 days. 11/11 completed Not Available Not Available Not Available doxepin 25 mg capsule TAKE 3 CAPSULES BY MOUTH ONCE DAILY AT BEDTIME NEEDED 11/25 completed Not Available Not Available Not Available hydrocodon e 5 mg-acetami nophen 325 mg tablet Take 1 tablet every 6-8 hours by oral route as needed for 5 days. 2024 active Not Available Not Available Not Avai lable naltrexone 50 mg tablet 05/10 completed Not Available Not Available Not Available prednisone 20 mg tablet 2 tabs twice daily for 2 days ; 1 tab twice daily for 5 days ; 1/2 tab twice daily for 2 days ; 1/2 tab for 1 day 11/10 completed Not Available Not Available Not Available metronidaz ole 500 mg tablet 11/11 completed Not Available Not Available Not Available acyclovir 400 mg tablet TAKE 1 TABLET BY MOUTH ONCE DAILY IN THE MORNING 2024 active Not Available Not Available Not Avai lable ciprofloxa tenisha 500 mg tablet Take 1 tablet every 12 hours by oral route for 10 days. 05/09 completed Not Available Not Available Not Available omeprazole 40 mg capsule,de layed release TAKE 1 CAPSULE BY MOUTH ONCE DAILY DIRECTED FOR GERD active Not Available Not Available No t Available quetiapine 100 mg tablet TAKE 1 TABLET BY MOUTH AT BEDTIME 11/10 completed Not Available Not Available Not Available amantadine HCl 100 mg capsule TAKE 1 CAPSULE BY MOUTH TWICE DAILY active Not Available Not Available No t Available Depo-Medro l 80 mg/mL suspension for injection Take 1 mL by injection route. 11/11 completed Not Available Not Available Not Available citalopram 20 mg tablet TAKE 1 TABLET BY MOUTH ONCE DAILY 05/10 completed Not Available Not Available Not Available famotidine 20 mg tablet Take 1 tablet by mouth twice daily active Not Available Not Available No t Available tamsulosin 0.4 mg capsule TAKE 1 CAPSULE BY MOUTH ONCE DAILY FOR 30 DAYS 11/10 completed Not Available Not Available Not Available ropinirole 0.25 mg tablet TAKE 1 TABLET BY MOUTH THREE TIMES DAILY active Not Available Not Available No t Available doxepin 100 mg capsule Take 1 capsule by mouth once daily 2024 active Not Available Not Available Not Avai lable mirtazapin e 30 mg tablet TAKE 1 TABLET BY MOUTH ONCE DAILY active Not Available Not Available No t Available ropinirole 0.5 mg tablet TAKE 2 TABLETS BY MOUTH ONCE DAILY AT BEDTIME active Not Available Not Available No t Available ranitidine 150 mg tablet Take 1 tablet twice a day by oral route before meals for 30 days. 01/14 completed Not Available Not Available Not Available promethazi ne 25 mg tablet 11/11 completed Not Available Not Available Not Available bupropion HCl 75 mg tablet TAKE 1 TABLET BY MOUTH ONCE DAILY FOR 30 DAYS 05/14 completed Not Available Not Available Not Available nicotine 21 mg/24 hr daily transderma l patch Apply 1 patch every day by transderm al route for 30 days. 11/11 completed Not Available Not Available Not Available omeprazole 20 mg capsule,de layed release Take 1 capsule by mouth in the morning 2024 active Not Available Not Available Not Avai lable mirtazapin e 45 mg tablet TAKE 1 TABLET BY MOUTH EVERY DAY AT BEDTIME 05/14 completed Not Available Not Available Not Available diclofenac sodium 75 mg tablet,del ayed release 05/14 completed Not Available Not Available Not Available mirtazapin e 15 mg tablet TAKE 1 TABLET BY MOUTH ONCE DAILY AT BEDTIME 11/10 completed Not Available Not Available Not Available ibuprofen 600 mg tablet TAKE 1 TABLET BY MOUTH EVERY 6 HOURS NEEDED FOR PAIN 11/10 completed Not Available Not Available Not Available methylpred nisolone 4 mg tablets in a dose pack 05/14 completed Not Available Not Available Not Available albuterol sulfate HFA 90 mcg/actuat ion aerosol inhaler INHALE 2 PUFFS BY MOUTH THREE TIMES DAILY NEEDED 11/10 completed Not Available Not Available Not Available carbidopa 25 mg-levodop a 100 mg tablet TAKE 1 TABLET BY MOUTH 4 TIMES DAILY active Not Available Not Available No t Available fluoxetine 20 mg capsule TAKE 1 CAPSULE BY MOUTH ONCE DAILY IN THE MORNING 10/23 completed Not Available Not Available Not Available amoxicilli n 875 mg-potassi um clavulanat e 125 mg tablet TAKE 1 TABLET BY MOUTH EVERY 12 HOURS 11/10 completed Not Available Not Available Not Available escitalopr am 10 mg tablet TAKE 1 TABLET BY MOUTH ONCE DAILY WITH SUPPER FOR 7 DAYS 11/10 completed Not Available Not Available Not Available escitalopr am 20 mg tablet TAKE 1 TABLET BY MOUTH ONCE DAILY WITH SUPPER 11/10 completed Not Available Not Available Not Available cyclobenza selina 5 mg tablet TAKE 1 TABLET BY MOUTH ONCE DAILY AT BEDTIME 05/10 completed Not Available Not Available Not Available aripiprazo le 5 mg tablet TAKE 1 TABLET BY MOUTH ONCE DAILY FOR 30 DAYS 11/10 completed Not Available Not Available Not Available rosuvastat in 5 mg tablet TAKE 1 TABLET BY MOUTH ONCE DAILY IN THE MORNING 2024 active Not Available Not Available Not Avai lable bupropion HCl XL 300 mg 24 hr tablet, extended release Take 1 tablet every day by oral route in the morning for 30 days. 05/11 completed made mouth and feet move Not Available Not Available Not Available bupropion HCl XL 150 mg 24 hr tablet, extended release Take 1 tablet every day by oral route in the morning for 4 days. 05/11 completed Not Available Not Available Not Available carbidopa 25 mg-levodop a 100 mg disintegra ting tablet Place 2 tablets 3 times a day by transling ual route for 30 days. 11/09 completed Not Available Not Available Not Available aripiprazo le 2 mg tablet Take 1 tablet every day by oral route in the evening for 30 days. 10/23 completed Not Available Not Available Not Available quetiapine 400 mg tablet TAKE 1 TABLET BY MOUTH ONCE DAILY AT BEDTIME active Not Available Not Available No t Available Symbicort 160 mcg-4.5 mcg/actuat ion HFA aerosol inhaler INHALE 2 PUFFS BY MOUTH TWICE DAILY DIRECTED 11/10 completed Not Available Not Available Not Available cholecalci ferol (vitamin D3) 1,250 mcg (50,000 unit) capsule Take 1 capsule every week by oral route with meals for 30 days. 05/10 completed Not Available Not Available Not Available quetiapine ER 400 mg tablet,ext ended release 24 hr TAKE 1 TABLET BY MOUTH EVERY DAY AT BEDTIME 12/11 completed Not Available Not Available Not Available quetiapine ER 300 mg tablet,ext ended release 24 hr TAKE 2 TABLETS BY MOUTH ONCE DAILY AT BEDTIME 05/14 completed Not Available Not Available Not Available quetiapine ER 200 mg tablet,ext ended release 24 hr TAKE 1 TABLET BY MOUTH ONCE DAILY IN THE EVENING AT BEDTIME 05/14 completed Not Available Not Available Not Available fluoxetine 60 mg tablet TAKE ONE TABLET BY MOUTH ONCE DAILY IN THE EVENING 11/11 completed Not Available Not Available Not Available Linzess 145 mcg capsule TAKE 1 CAPSULE BY MOUTH EVERY MORNING 2024 active Not Available Not Available Not Avai lable Anoro Ellipta 62.5 mcg-25 mcg/actuat ion powder for inhalation 01/14 completed Not Available Not Available Not Available Bevespi Aerosphere 9 mcg-4.8 mcg HFA aerosol inhaler 11/11 completed Not Available Not Available Not Available fluticason e 113 mcg-salmet mitesh 14 mcg/actuat ion breath activated powdr INHALE 1 PUFF BY MOUTH TWICE DAILY 05/10 completed Not Available Not Available Not Available Ingrezza 40 mg capsule Take 1 capsule every day by oral route for 7 days. 09/05 completed Not Available Not Available Not Available Ingrezza 80 mg capsule Take 1 capsule every day by oral route for 30 days. active Not Available Not Available No t Available Fluzone Quad (PF ) 60 mcg(15 mcgx4)/0.5 mL intramuscu lar syringe 11/11 completed Not Available Not Available Not Available Fluzone Quad (PF) 60 mcg (15 mcg x 4)/0.5 mL IM syringe 05/10 completed Not Available Not Available Not Available Fluzone Quad (PF) 60 mcg (15 mcg x 4)/0.5 mL IM syringe 05/10 completed Not Available Not Available Not Available Vitals Date Recorded Heart rate Provider Name an d Address Organization Details Last Updated DateTime 12/11/2024 96 /min HUNTER COOLEY Attn: [employer],[address] [place], [address], [facility] 12/11/2024 12:44:10 Date Recorded Body height Body mass index (BMI) Body weight Oxygen saturation Oxygen saturation in Arterial blood by Pulse oximetry Heart rate Respiratory rate Systolic And Diastolic Provider Name and Address Organization Details Last Updated DateTime 5 157.48 cm 22.7 kg/m2 55904.8 5 g 98 % 98 % 114 /min 17 /min 102/71 mm[Hg] Shasha Rivera MA [facility] 5 11:42:19 Date Recorded Body height Body mass index (BMI) Body weight Oxygen saturation Oxygen saturation in Arterial blood by Pulse oximetry Heart rate Respiratory rate Systolic And Diastolic Provider Name and Address Organization Details Last Updated DateTime 4 157.48 cm 20.9 kg/m2 25435.9 3 g 97 % 97 % 99 /min 17 /min 113/77 mm[Hg] Shasha Rivera [place] - [facility] 4 11:02:24 Date Recorded Body height Body mass index (BMI) Body weight Heart rate Oxygen saturation Oxygen saturation in Arterial blood by Pulse oximetry Systolic And Diastolic Provider Name and Address Organization Details Last Updated DateTime 3 157.48 cm 22.5 kg/m2 42195.8 6 g 105 /min 98 % 98 % 110/77 mm[Hg] Sarah Samuel MA [facility] 3 11:39:50 Date Recorded Heart rate Provider Name an d Address Organization Details Last Updated DateTime 07/24/2024 106 /min HUNTER COOLEY Attn: [employer] [place], [address], [place] - [facility] 07/27/2024 21:03:48 Date Recorded Body height Body mass index (BMI) Body weight Oxygen saturation Oxygen saturation in Arterial blood by Pulse oximetry Respiratory rate Systolic And Diastolic Provider Name and Address Organization Details Last Updated DateTime 4 157.48 cm 22 kg/m2 35597.8 8 g 98 % 98 % 20 /min 106/74 mm[Hg] Cheryl Pinon [place] - [facility] 4 11:36:18 Date Recorded Body height Body mass index (BMI) Body weight Heart rate Oxygen saturation Oxygen saturation in Arterial blood by Pulse oximetry Systolic And Diastolic Provider Name and Address Organization Details Last Updated DateTime 2 157.48 cm 24.3 kg/m2 51004.7 9 g 103 /min 98 % 98 % 118/70 mm[Hg] Isabelle Gee [place] - [facility] 2 10:29:02 Social History Question Answer Notes LastModified by Organizat ion Details LastModified Time Tobacco Smoking Status Former Smoker quit on 0 Kianna Ospina MA [facility], [place] - [facility] 05/11/2020 09:51:50 Do You Have An Advance Directive? No Information not available 02/15/2015 Are You Blind Or Do You Have Difficulty Seeing? No Information not available 09/07/2014 Is Blood Transfusion Acceptable In An Emergency? Yes Information not available 09/15/2015 What Is Your Level Of Caffeine Consumption? Heavy Information not available 09/07/2014 Are You A Caregiver? No Information not available 09/07/2014 How Much Tobacco Do You Chew? None Information not available 09/07/2014 Are You Deaf Or Do You Have Serious Difficulty Hearing? No Information not available 09/07/2014 What Type Of Diet Are You Following? REGULAR Information not available 09/07/2014 Do You Have A Directive To Physicians? No Information not available 09/07/2014 Which Illicit Or Recreational Drugs Have You Used? N/a Information not available 09/07/2014 Education 12 Information no t available 09/15/2015 Are There Any Guns Present In Your Home? Yes Information not available 02/15/2015 Hard Of Hearing Or Deaf In One Or Both Ears? No Information not available 02/15/2015 Legally Blind In One Or Both Eyes? No Information not available 02/15/2015 Live Alone Or With Others? Alone Information not available 09/15/2015 Marital Status Informatio n not available 09/07/2014 Do You Have A Medical Power Of Combiner Operator? No Information not available 09/07/2014 What Was The Date Of Your Most Recent Tobacco Screening? 12/11/2024 Information not available 12/11/2024 How Many Children Do You Have? 1 Information not available 09/15/2015 Do You Have An Out Of Hospital DNR? No Information not available 09/07/2014 Performs Monthly Self-breast Exam? Yes Information not available 02/15/2015 What Is Your Relationship Status? Information not available 09/15/2015 Do You Use Your Seat Belt Or Car Seat Routinely? Yes Information not available 02/07/2021 Seat Belts Used Routinely Yes Information not available 02/15/2015 Are You Sexually Active? No Information not available 09/15/2015 Smoke Alarm In Home Yes Information not available 02/15/2015 Do You Have Smoke And Carbon Monoxide Detectors In Your Home? Yes Information not available 02/07/2021 At What Age Did You Start Smoking Tobacco? 17 Information not available 09/07/2014 Are You Passively Exposed To Smoke? No Information not available 02/07/2021 General Stress Level Medium Information not available 09/07/2014 Do You Use Sunscreen Routinely? Yes Information not available 02/15/2015 Has Tobacco Cessation Counseling Been Provided? Yes [email or web address] Information not available 07/24/2024 On What Date Was Tobacco Cessation Counseling Provided? 12/11/2024 Information not available 12/11/2024 How Many Years Have You Smoked Tobacco? 20 Information not available 09/15/2015 Do You Have Difficulty Walking Or Climbing Stairs? No Information not available 09/07/2014 Sex: Female Functional Status Question Answer Note LastModified by Organizat ion Details LastModified Time Do you or have you ever used any other forms of tobacco or nicotine? No [email or web address] Information not available 07/24/2024 What is your level of alcohol consumption? None [email or web address] Information not available 01/09/2022 Are you currently employed? Yes Information not available 09/15/2015 Do you have transportation difficulties? No Information not available 09/07/2014 Do you have difficulty doing errands alone? No Information not available 09/07/2014 Are you able to care for yourself? 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 No Information not available 09/07/2014 What is your exercise level? Occasional Information not available 09/07/2014 Mental Status Question Answer Note LastModified by Organizat ion Details LastModified Time Do you feel stressed (tense, restless, nervous, or anxious, or unable to sleep at night)? [id number] Information not available 02/07/2021 Do you have difficulty concentrating, remembering or making decisions? No Information no t available 09/07/2014 Family History Relationship Description Onset Age of this Age Resolved Age Notes LastModified by Organization Details LastModified Time Mother Malignant tumor of colon [email or web address] Not available 2015 09:28:08 Father Depressive disorder [email or web address] Not available 2015 09:28:08 Father Hypertensive disorder [email or web address] Not available 2015 09:28:08 Medical History Condition Response Coronary Artery Disease N Kidney Cyst N Blood Diseases N Hyperthyroidism N Blood disorders N Blood Transfusion N MRSA N Emphysema N Depression N COPD N Blood Clots N Pneumonia N Premature N Peripheral Arterial Disease N Edema N TIA N Headaches/Migraines N Anxiety Disorder N Obesity N Polyps N Infertility N Acid Reflux (GERD) N Hematuria N Stroke N Neck Injury N Polio N Hospital Admission other than N Neurologic Disorder N Other Sleep Disorders N Rheumatoid Arthritis N Fibromyalgia N Abdominal Aortic Aneurysm Repair N Kidney Disease N Heart Conditions N Heart Disease/Heart Problems N Hospitalizations N Brain Tumors N Acne N Skin Problems N Eating Disorder N Meningitis N Constipation N Tuberculosis N Cerebral Palsy N Myocardial Infarction N Asthma N Substance Abuse N Peripheral Vascular Disease N Vertigo N Sleep Disorder N Cirrhosis N Pulmonary Embolism N Chicken Pox N Hematologic Disease N Flomax Use Past or Present N Anxiety/Depression N Thyroid Disease N Colon Cancer N Lung Disease N Glaucoma N Developmental or Behavioral Disorders N Bipolar N Pacemaker N Diverticulitis/Diverticulosis N Orthopedic Problems N Anesthesia Complications N Orthotics N Head Injury/Concussion N Congenital Anomalies N Celeste Bite N Chronic Kidney Disease N Endometriosis N Liver Disease N Schizophrenia N Dialysis N Speech Delay N Chronic Obstructive Pulmonary Disease N Parkinson's Disease N Thyroid Problems N GI Problems N Developmental Delay N Anemia N Multiple Sclerosis N Immune System Disorder N Colon Polyps N Heart Attack (CT) N Diabetes N Cardiomyopathy N Blood Transfusions N Heart Problems/Murmur N Eye Trauma N Congestive Heart Failure (CHF) N Valvular Heart Disease N Hyperlipidemia N Double Vision N Abuse/Domestic Violence N Hepatitis B N Lupus N Epilepsy/Seizures N Reflux/GERD N Aneurysm N Heart Disease N Bronchitis N Pre-Eclampsia N Hypertension N Heart Failure N Other N Gout N High Blood Pressure N Atrial Fibrillation N Kidney Stones N Head Trauma/Injury N Congenital Heart Disease N Spine Problems N Gastrointestinal Disease N Lung Mass N Sinusitis N Obstructive Sleep Apnea N Muscle, Joint, or Bone Problems N Autoimmune disease N Vision or Eye Problems N Arthritis N Blood Clot N Cancer N Seasonal allergies N Leg or Foot Ulcers N Raynaud's Disease N Aortic Aneurysm N Arrhythmia N Headaches N Heart Problems N Ambloypia N Ear or Hearing Problems N Hyperparathyroidism N Migraines N Artificial Joints N Kidney or Bladder Problems N NSAID Use N Encephalitis N PTSD N Ulcers N Prostate Hypertrophy N Bleeding Disorder N AIDS/HIV N Urinary Tract Infection N Back Problems N Allergies N Atrial Flutter N GERD/Reflux N Hepatitis N Autism Spectrum Disorder (ASD) N Breast Cancer N Hernia N Hypothyroidism N Breast Problem N Genitourinary Disease N Deep Vein Thrombosis N Varicose Veins N Cystic Fibrosis N Hearing Loss N Developmental Problems N Carotid Disease N Vitamin D Deficiency N ADHD N Bladder or Kidney Problems N High Cholesterol N [place] N Valvular Abnormalities N Psychiatric/Mental Health Condition N Organ Transplant N Foot Deformity N Allergies/Hayfever N Dyslipidemia N Hyponatremia N Diabetic Eye Disease N Osteoporosis/Osteopenia N Back Pain N Proteinuria N Mental Illness N Neurological Problems N Ovarian Cancer N Bedwetting N Seizures/Epilepsy N Kidney Failure N Ocular trauma N Diverticulitis N Dementia N Sleep Apnea N Mental Problems N Warfarin Management N Osteoporosis N Gynecological History Statement/Question Response Abnormal Pap N Date of Last Mammogram 12/21/2021 On BCP's at Conception? N STIs/STDs N HPV Vaccine N Duration of Flow (days) 7 Most Recent Mammogram 12/21/2021 Age at Menarche 10 Current Control Method Tubal Ligat ion Age at First Child 20 Sexually Active? N Menses Monthly N Date of Last Pap Smear 01/09/2022 Sexual Problems? N LMP Unknown Desired Control Method None Obstetrics History GPAL:G 2 P 2 0 0 1 Type Value Multiple Births 0 Full Term 2 Induced 0 Spontaneous 0 Premature 0 Living 1 Ectopics 0 Total 2 Immunizations Vaccine Type Date Status Note Provider Nam e and Address Organization Details Recorded Time Influenza, split virus, quadrivalent, preservative 0 completed Not Available [facility] 05/17/2022 04:47:51 COVID-19, mRNA, LNP-S, PF, 30 mcg/0.3 mL dose 1 completed Not Available [facility] 05/17/2022 04:47:51 COVID-19, mRNA, LNP-S, PF, 30 mcg/0.3 mL dose 1 completed Not Available [facility] 05/17/2022 04:47:51 Influenza, split virus, quadrivalent, preservative 1 completed Not Available [facility] 05/17/2022 04:47:51 COVID-19, mRNA, LNP-S, PF, 30 mcg/0.3 mL dose 1 completed Not Available [facility] 05/17/2022 04:47:51 Influenza, split virus, quadrivalent, preservative 2 completed Gabriela Ledbetter LPN null, [place] - [facility] 07/26/2022 12:16:18 COVID-19, mRNA, LNP-S, bivalent, PF, 30 mcg/0.3 mL dose 2 completed Gabriela Ledbetter LPN null, [place] - [facility] 07/26/2022 12:17:50 Influenza, split virus, quadrivalent, preservative 6 completed Not Available [facility] 10/18/2019 02:42:06 Influenza, split virus, quadrivalent, preservative 7 completed Not Available [facility] 10/18/2019 02:39:53 Influenza, split virus, trivalent, preservative 4 completed Not Available [facility] 10/18/2019 02:32:02 Tdap 2 completed Kianna Ospina MA null, [facility] 12/21/2021 10:56:51 Influenza, split virus, trivalent, PF 4 completed HUNTER COOLEY Attn: Accounting[address] [place], [address], [facility] 07/27/2024 21:03:33 Influenza, split virus, quadrivalent, preservative 5 completed Not Available [facility] 10/18/2019 02:32:11 Past Encounters Encounter ID Performer Location Encounter Start Date Encounter Closed Date Diagnosis/Indication Diagnosis SNOMED-CT Code Diagnosis ICD10 Code Diagnosis Note [id number] MD Soto Jay (Adult Med) [address] [place] [address] [id number] 0 09/07/2014 11:40:36 09/07/2014 17:42:52 Cough 14350683 Active or passive immunization 550745787 Insomnia 151546986 Tobacco user 017882494 Screening for cancer 56381161 [place] [id number] AMA Hurst (Adult Med) [address] [place] [address] [id number] 0 12/07/2014 15:09:18 12/07/2014 16:14:38 Depressive disorder 58257197 Insomnia 638652788 Recurrent herpes simplex 93469460 Adult heal th examination [id number] AMA Hurst (Adult Med) [address] [place] [address] [id number] 02/15/2015 09:39:02 02/15/2015 12:00:51 Depressive disorder 75331166 Insomnia 782973981 [id number] MD Soto Jay (Adult Med) [address] [place] [address] [id number] 0 06/11/2015 09:42:52 06/11/2015 10:59:50 Insomnia 045570959 Tobacco user 054470018 Depressive disorder 39625554 [id number] AMA Hurst (Adult Med) [address] [place] [address] [id number] 0 08/13/2015 09:37:50 08/13/2015 10:14:55 Administration of influenza vaccine 09720948 Z23 Depressive disorder 3548 9007 F32.9 Insomnia 541392675 G47.0 0 Recurrent herpes simplex 12536313 B00.9 Tobacco user 259510171 Z 72.0 [id number] MD Soto Workman (TRAVELING SECRETARY) [address] [place] [address] [id number] 09/15/2015 15:28:28 09/15/2015 18:30:09 Gynecologic examination 66106039 Z01.419 Screening for malignant neoplasm of breast 911688120 Z12.39 [id number] AMA Hurst (Adult Med) [address] [place] [address] [id number] 0 02/04/2016 09:17:56 02/04/2016 16:47:39 Depressive disorder 32343427 F32.9 Recurrent herpes simplex 38107886 B00.9 Insomnia 509360846 G47.0 0 Tobacco user 561335562 Z 72.0 Hyperlipid emia screening 617182422 Z13.220 Diabetes m ellitus screening 251440101 Z13.1 [id number] MD Soto Jay (Adult Med) [address] [place] [address] [id number] 07/10/2016 09:21:59 07/10/2016 12:51:20 Administration of influenza vaccine 34651128 Z23 Tobacco user 169365077 Z 72.0 Insomnia 676427238 G47.0 0 Recurrent herpes simplex 22392600 B00.9 Depressive disorder 3548 9007 F32.9 [id number] MD Soto Jay (Adult Med) [address] [place] [address] [id number] 0 01/03/2017 09:18:03 01/04/2017 10:01:39 Acute bronchitis 81765821 J20.9 Tobacco user 033893859 Z 72.0 Depressive disorder 3548 9007 F32.9 Cough 78438241 R05 Insomnia 596620818 G47.0 0 Recurrent herpes simplex 92598132 B00.9 [id number] [facility] [address] [place] [address] [id number] 06/07/2017 09:46:20 06/11/2017 10:33:53 Insomnia 098420523 G47.00 Chronic ob structive pulmonary disease 59029912 J44.9 Depressive disorder 3548 9007 F32.9 Administra tion of influenza vaccine 58543929 Z23 Tobacco user 551112924 Z 72.0 History of tobacco use 2891878255 103 Z87.578 [id number] MD Soto Jay (Adult Med) [address] [place] [address] 0 09/06/2017 08:58:07 09/06/2017 09:57:43 Chronic obstructive pulmonary disease 85588843 J44.9 Depressive disorder 3548 9007 F32.9 Insomnia 506703384 G47.0 0 Hyperlipidemia 00086293 E78.5 Tobacco user 944210976 Z 72.0 [id number] MD Soto Jay (Adult Med) [address] [place] [address] [id number] 0 11/08/2017 10:03:20 11/08/2017 10:47:26 Recurrent herpes simplex 07116465 B00.9 Depressive disorder 3548 9007 F32.9 Insomnia 428830345 G47.0 0 Hyperlipidemia 99822755 E78.5 Chronic ob structive pulmonary disease 18441503 J44.9 [id number] MD Soto Jay (Adult Med) [address] [place] [address] [id number] 0 05/09/2018 09:37:37 05/09/2018 11:27:41 Recurrent herpes simplex 29827830 B00.9 Hyperlipidemia 44400045 E78.5 Acute bronchitis 4303746 2 J20.9 Insomnia 653087743 G47.0 0 Chronic ob structive pulmonary disease 71714312 J44.9 Tobacco user 304551671 Z 72.0 Screening for malignant neoplasm of colon 300071367 Z12.11 Depressive disorder 3548 9007 F32.9 [id number] MD Soto Jay (Adult Med) [address] [place] [address] [id number] 11/11/2018 09:38:57 11/11/2018 11:02:14 Depressive disorder 71858679 F32.9 Screening for malignant neoplasm of colon 494036332 Z12.11 Hyperlipidemia 96616094 E78.5 Chronic ob structive pulmonary disease 42818875 J44.9 Gastroesop hageal reflux disease 765052937 K21.9 [id number] MD Soto Jay (Adult Med) [address] [place] [address] [id number] 0 01/14/2019 09:53:08 01/15/2019 11:32:18 Insomnia 886519989 G47.00 Depressive disorder 3548 7 F32.9 Screening for malignant neoplasm of breast 530271550 Z12.31 Gastroesop hageal reflux disease 208886960 K21.9 Hyperlipidemia 95044293 E78.5 Chronic ob structive pulmonary disease 41799407 J44.9 Tobacco user 702831858 Z 72.0 [id number] MD Soto Jay (Adult Med) [address] [place] [address] [id number] 0 07/15/2019 10:11:04 07/16/2019 09:19:26 Chronic tremor 686236313 R25.1 Screening for malignant neoplasm of breast 049140272 Z12.31 Hyperlipidemia 97247359 E78.5 Chronic ob structive pulmonary disease 35498395 J44.9 Insomnia 733551149 G47.0 0 Depressive disorder 3548 9007 F32.9 [id number] MD Soto Jay (Adult Med) [address] [place] [address] [id number] 0 08/15/2019 16:29:40 08/18/2019 10:17:27 Gastroesophageal reflux disease 500080114 K21.9 Hyperlipidemia 49045703 E78.5 Insomnia 339664091 G47.0 0 Depressive disorder 3548 7 F32.9 [id number] MD Soto Jay (Adult Med) [address] [place] [address] [id number] 0 10/23/2019 16:20:53 10/23/2019 17:06:19 Depressive disorder 35522183 F32.9 Hyperlipidemia 75871400 E78.5 Tobacco user 131493774 Z 72.0 Gastroesop hageal reflux disease 985296435 K21.9 Chronic ob structive pulmonary disease 64874493 J44.9 Vitamin D deficiency 347 81893 E55.9 Nicotine dependence 5629 4008 F17.200 F17.210 Chest pain 56992482 R07. 9 Insomnia 728770221 G47.0 0 [id number] MD [facility] (Adult Med) [address] [place] [address] [phone] 0 05/11/2020 08:10:25 05/11/2020 10:03:14 Chronic obstructive pulmonary disease 37514266 J44.9 Chronic tremor 309888789 R25.1 Depressive disorder 3548 9007 F32.9 Gastroesop hageal reflux disease 386741502 K21.9 Hyperlipidemia 59672666 E78.5 Vitamin D deficiency 347 43882 E55.9 Recurrent herpes simplex 20616696 B00.9 Tardive dyskinesia 00718 9007 G24.01 Insomnia 832744348 G47.0 0 [id number] MD [facility] (Adult Med) [address] [place] [address] [phone] 0 08/10/2020 08:15:59 08/10/2020 10:44:11 Chronic obstructive pulmonary disease 23063270 J44.9 Acute bronchitis 6234762 2 J20.9 Depressive disorder 3548 9007 F32.9 Gastroesop hageal reflux disease 294466891 K21.9 Hyperlipidemia 22016355 E78.5 Insomnia 299212593 G47.0 0 Tardive dyskinesia 36227 9007 G24.01 Cough 35412584 R05 Chronic tremor 103897608 R25.1 Vitamin D deficiency 347 25699 E55.9 [id number] MD [facility] (Adult Med) [address] [place] [address] 28389-603 0 11/09/2020 07:42:11 11/09/2020 10:20:24 Tardive dyskinesia 159803724 G24.01 Recurrent herpes simplex 35196772 B00.9 Chronic ob structive pulmonary disease 15965313 J44.9 Chronic tremor 527064172 R25.1 Depressive disorder 3548 9007 F32.9 Gastroesop hageal reflux disease 294965263 K21.9 Hyperlipidemia 45174978 E78.5 Insomnia 900238955 G47.0 0 Mammography abnormal 168 840289 R92.8 Vitamin D deficiency 347 02782 E55.9 Parkinson's disease 4904 9000 G20 [id number] MD [facility] (Adult Med) [address] [place] [address] 13713-355 0 02/07/2021 08:57:21 02/07/2021 12:12:05 Chronic obstructive pulmonary disease 56789808 J44.9 Depressive disorder 3548 9007 F32.9 Gastroesop hageal reflux disease 904597234 K21.9 Hyperlipidemia 16157990 E78.5 Insomnia 893513199 G47.0 0 Nicotine dependence 5629 4008 F17.200 F17.210 Parkinson's disease 4904 9000 G20 Tardive dyskinesia 14117 9007 G24.01 Vitamin D deficiency 347 29351 E55.9 [id number] Cirilo Lorenz MD [facility] (Adult Med) [address] [place] [address] [phone] 0 05/10/2021 08:26:51 05/19/2021 10:41:44 Chronic obstructive pulmonary disease 44919068 J44.9 Depressive disorder 3548 9007 F32.9 Gastroesop hageal reflux disease 321295722 K21.9 Hyperlipidemia 54244958 E78.5 Insomnia 405497959 G47.0 0 Chronic tremor 879627658 R25.1 Parkinson's disease 4904 9000 G20 Tardive dyskinesia 92335 9007 G24.01 Tobacco user 402031962 Z 72.0 Vitamin D deficiency 347 67993 E55.9 Recurrent herpes simplex 20767600 B00.9 Restless legs 47742996 G 25.81 [id number] Cirilo Lorenz MD [facility] (Adult Med) [address] [place] [address] [phone] 0 08/11/2021 08:23:24 08/11/2021 13:15:34 Acute bronchitis 99439686 J20.9 Gastroesop hageal reflux disease 265194560 K21.9 Restless legs 58193354 G 25.81 Chronic ob structive pulmonary disease 83590195 J44.9 Chronic tremor 882879079 R25.1 Cough 95346696 R05.9 Depressive disorder 3548 9007 F32.9 Hyperlipidemia 05908352 E78.5 Insomnia 535646773 G47.0 0 Nicotine dependence 5629 4008 F17.200 F17.210 Parkinson's disease 4904 9000 G20 Vitamin D deficiency 347 27066 E55.9 [id number] Cirilo Lorenz MD [facility] (Adult Med) [address] [place] [address] [phone] 0 11/10/2021 09:12:10 11/11/2021 12:26:28 Tardive dyskinesia 153552954 G24.01 Gastroesop hageal reflux disease 319208246 K21.9 Chronic tremor 204146929 R25.1 Hyperlipidemia 43611463 E78.5 Insomnia 428158271 G47.0 0 Parkinson's disease 4904 9000 G20 Restless legs 27437767 G 25.81 Vitamin D deficiency 347 00735 E55.9 Recurrent herpes simplex 43330503 B00.9 [id number] Cirilo Lorenz MD [facility] (Adult Med) [address] [place] [address] [phone] 0 12/21/2021 09:19:32 12/22/2021 12:00:33 Parkinson's disease 94685640 G20 sees Dr[address] Menchaca Administra tion of tetanus vaccine 132654697 Z23 Hyperlipidemia 54321098 E78.5 Screening for malignant neoplasm of colon 054299906 Z12.11 Tardive dyskinesia 29768 9007 G24.01 Gastroesop hageal reflux disease 152387670 K21.9 Chronic ob structive pulmonary disease 07550405 J44.9 Restless legs 12378976 G 25.81 Vitamin D deficiency 347 22861 E55.9 Herpes simplex 77461166 B00.9 Chronic tremor 848788105 R25.1 Depressive disorder 3548 9007 F32.9 Insomnia 953751028 G47.0 0 [id number] MD [facility] GARCIA (TRAVELING SECRETARY) [address] [place] [address] [phone] 0 01/09/2022 09:07:53 01/10/2022 13:28:49 Well woman monitoring check done 078659900 Z76.89 Pap: 01/09/22STI screening: declinesCo ntraceptio n: tubal ligationMa mmogram: 11/2021Hgb A1C (beginning at age 45, q3 years): 5.5%, 2021Lipids (beginning at age 45, q3 years): UTD olono scopy (begin at age 45, q10 years): due after 01/09/[address] Sal awad vaccine: UTDHRT: NonePHQ-9: Screen completed, negativeDi et/exercis e: Counseled regarding importance of physical activity, healthy diet and appropriat e calcium intake.CV risk factors: no family history, + obesity, no other comorbidit iesAspirin prophylaxi s: N/ATobacco , alcohol, drug use: recently quit in 2019 Screening for malignant neoplasm of cervix 458904284 Z12.4 routine pap exam today, no history of abnormal paps in the past. [id number] MD [facility] (Adult Med) [address] [place] [address] [phone] 0 03/27/2022 09:35:54 03/28/2022 09:44:45 Chronic obstructive pulmonary disease 37577895 J44.9 Chronic tremor 811332816 R25.1 Depressive disorder 3548 9007 F32.9 Gastroesop hageal reflux disease 245090264 K21.9 Hyperlipidemia 00725145 E78.5 Insomnia 034854899 G47.0 0 Parkinson's disease [address] Menchaca Restless legs 85119101 G 25.81 Tardive dyskinesia 38895 9007 G24.01 Vitamin D deficiency 347 64672 E55.9 [id number] MD [facility] (Adult Med) [address] [place] [address] 07092-465 0 05/11/2022 12:32:40 05/12/2022 16:16:05 Parkinson's disease 54225775 G[address] Menchaca Tardive dyskinesia 75537 9007 G24.01 Chronic ob structive pulmonary disease 51209425 J44.9 Depressive disorder 3548 7 F32.9 Gastroesop hageal reflux disease 213921370 K21.9 Hyperlipidemia 96009805 E78.5 Insomnia 117688091 G47.0 0 Restless legs 60811461 G 25.81 Vitamin D deficiency 347 96484 E55.9 [id number] MD [facility] (Adult Med) [address] [place] [address] 66454-941 0 06/13/2022 09:07:43 06/14/2022 11:18:04 Insomnia 514037324 G47.00 Parkinson's disease [address] Menchaca Restless legs 00300604 G 25.81 Tardive dyskinesia 78918 9007 G24.01 Vitamin D deficiency 347 60493 E55.9 Chronic ob structive pulmonary disease 32053358 J44.9 Chronic tremor 435672915 R25.1 Depressive disorder 3548 9006 F32.9 Gastroesop hageal reflux disease 105323542 K21.9 Hyperlipidemia 34171338 E78.5 [id number] Cirilo Lorenz MD [facility] (Adult Med) [address] [place] [address] [phone] 0 09/05/2022 10:18:57 09/06/2022 10:58:33 Chronic obstructive pulmonary disease 69849817 J44.9 Stable. Chronic tremor 966728746 R25.1 Stable. Depressive disorder 3548 7 F32.9 Wants to refill med. Gastroesop hageal reflux disease 263812003 K21.9 Wants to refill med. Herpes simplex 37058745 B00.9 wants to refill med. Hyperlipidemia 11981932 E78.5 Low animal fat diet, wants to refill med. Insomnia 767599810 G47.0 0 Wants to refill med. Parkinson's disease 4904 9000 G20 Stable. Tardive dyskinesia 01520 9007 G24.01 Stable. She used to see psychiatri st and neurol,ogi st. Restless legs 55684799 G 25.81 Wants to refill med. At [facility] risk of polypharmacy 257442014 Z91.89 She is on 11 kinds of medication s. Body mass index 20-24 - normal 509248689 Z68.24 She HAS NORMAL BMI 09-05-2022 [id number] Cirilo Lorenz MD [facility] (Adult Med) [address] [place] [address] 05/21/2023 11:27:08 05/23/2023 15:13:08 Parkinson's disease 22748805 G20 Stable. Tremor persists. Screening mammography 24 154707 Z12.31 Agreed for the screening. [id number] Jorge zheng MD [facility] [address] [place] [address] 05/14/2024 10:51:19 05/14/2024 11:30:21 Parkinson's disease 43275550 G20.A1 diagnosed age 58follows with Neuro, Dr. Calero carbidopa/ levodopa, amantadine , ropinirole Tardive dyskinesia 49325 9007 G24.01 onset 6 months before parkinson' s diagnosisp t reports drug induced from previous psych medsimprov ement with Safia jimenez with telemedici ne psych Chronic constipation 236 520744 K59.09 on linzess with improvemen t Adult heal th examination 971020909 Z00.00 routine labs Insomnia 384402227 G47.0 0 goes to bed at 930, can't fall asleep until after midnight, has to urinate at 2-3 AM and then can't go back to sleepon doxepin, not workingnev er slept well before parkinson' s diagnosish ad sleep study a couple months ago, normalshak ing worse at night, hard to sleepencou raged to discuss with neuro at f/u appt next monthf/u in 1 mo Screening for malignant neoplasm of breast 413719982 Z12.39 due for mammo 08/2024 Screening for malignant neoplasm of colon 618183929 Z12.11 completed 2021, note in [facility] t in 3 yrs Restless legs 42319503 G 25.81 shaking worse at night, hard to sleepon ropinirole 0.25 mg TID, will increase to 0.5 BID at bedtime Nicotine d ependence in remission 137885442 F17.201 1 ppd since age 15quit 3 yrs agoordered LDCT scan Depression screening 171 671013 Z13.31 PHQ 0 Hyperlipidemia 12688579 E78.5 on rosu 5 Gastroesop hageal reflux disease without esophagitis 717893880 K21.9 on omeprazole [id number] Michael Erickson MD [facility] [address] [place] [address] 07/24/2024 11:30:01 07/24/2024 12:20:04 Insomnia 517138624 G47.00 07/24/24: per , discussed with neuro and neuro declined medication pt diagnosed with sleep apnea and refuses to wear CPAP 05/14/24: goes to bed at 930, can't fall asleep until after midnight, has to urinate at 2-3 AM and then can't go back to sleepon doxepin, not workingnev er slept well before parkinson' s diagnosish ad sleep study a couple months ago, normalshak ing worse at night, hard to sleepencou raged to discuss with neuro at f/u appt next monthf/u in 1 mo Restless legs 45405997 G 25.81 07/24/24: improved with ropinirole 0.5 mg dose 05/14/24: shaking worse at night, hard to sleepon ropinirole 0.25 mg TID, will increase to 0.5 BID at bedtime Nicotine d ependence in remission 665861129 F17.201 1 ppd since age 15quit 3 yrs agoordered LDCT scan- 05/24/24- , repeat in 1 yr Screening for malignant neoplasm of breast 976603133 Z12.39 due for mammo 08/2024 Hiatal her gregory with gastroesophageal reflux 101816759 K21.9 large hiatal hernia found on LDCT scan 05/28/24pt is on famotidine and omeprazole w/o some relief of GERDrefer to GI to discuss Obstructiv e sleep apnea syndrome 60429733 G47.33 has sleep apnearefus es to wear CPAP or BiPAP Administra tion of influenza vaccine 04721505 Z23 [id number] Michael Erickson MD [facility] [address] [place] [address] 12/11/2024 11:31:39 12/11/2024 11:58:35 Hiatal hernia with gastroesophageal reflux 466581392 K21.9 12/11/24: worsening GERD at night, can cause her to vomitincre ase omeprazole from 20 to 40, c/w famotidine 20 mg BIDprinted off referral and encouraged pt to call to schedule appt with GI 07/24/24: large hiatal hernia found on LDCT scan 05/28/24pt is on famotidine and omeprazole w/o some relief of GERDrefer to GI to discuss Screening for malignant neoplasm of breast 015683671 Z12.39 due for mammo 08/2024 Depression screening 171 409858 Z13.31 PHQ 0 Health Concerns Section Related Observation LastModified by Organization Detai ls LastModified Time None Recorded Concern Status LastModified by Organization Details LastModified Time None Recorded Advance Directives Directive N: Payers Insurance Date Sequence Insurance Name Policy Number Policy Quevedo Covered Member ID Quevedo Member ID Guarantor Name 05/14/2024 1 [facility] ON OR AFTER 03/31/21 (MEDICAID REPLACEMENT - HMO) Priya John [id number] Priya John 12/09/2024 2 [facility] ON OR AFTER 03/31/21 (MEDICAID REPLACEMENT - HMO) Priya John [id number] Priya John 07/24/2024 2 [place] Priya John [id number] Priya John 07/28/2024 2 [place] Priya John [id number] Priya John 09/23/2024 2 [place] WHEN [place]ARE OR MEDICARE REPLACEMENT PRIMARY) Priya John [id number] Priya John 12/16/2024 1 [facility] ON OR AFTER 10/01/2020 - DUAL ELIGIBLE (MEDICARE REPLACEMENT/AD VANTAGE - HMO) Priya John [id number] Priya John 05/14/2024 1 [facility] PRIOR TO 03/31/2021 (MEDICAID REPLACEMENT - HMO) Priya John [id number] Priya John 12/08/2024 [place] [facility] Priya John [id number] Priya John 05/14/2024 2 [place] [facility] Priya John [id number] Priya John 05/21/2024 1 [place] Priya John [id number] Priya John 05/21/2024 2 [place] OR [place]IC[place] REPLACEMENT [place]IMARY) Priya John [id number] Priya John Notes Date Note Type Note Provider Name and Address Organization Details Recorded Time 09/05/2022 text/html OFFICE VISIT, nkda, [facility] TO REFILL ALL MED. Cirilo Lorenz MD Attn: [address] [place], [address], [facility] 09/05/2022 12:39:53 05/21/2023 text/html Office visit, NKDA. came with , history of parkinson;s disease, also wants mammogram screening. Med refills. Cirilo Lorenz MD Attn: [address] [place], [address], [place] [facility] 05/21/2023 13:59:49 05/14/2024 text/html Pt presents to establish care as a new patient. Pt's is present and helps provide history. Previous PCP in [place] does not accept her insurance. H/o Parkinson's, follows with neuro. H/o tardive dyskinesia and insomnia, follows with Psychiatry via telemedicine. C/o difficulty sleeping at night due to insomnia and tremors, no improvement with ropinirole or doxepin. Denies fever, chills, chest pain, SOB, n/v/d, abd pain, dizziness or headaches. HUNTER COOLEY Attn: [address] [place], [address], [place] [facility] 05/15/2024 13:51:42 07/24/2024 text/html Pt presents to discuss LDCT scan results of hiatal hernia. HUNTER COOLEY Attn: [address] , [place], [address], [place] [facility] 07/27/2024 21:10:12 12/11/2024 text/html Pt presents for GERD f/u. States that her reflux is worse at night before she goes to bed and sometimes I puke. Last meal is around 2 PM and goes to bed at 10 PM. Pt has not established with GI. HUNTER COOLEY Attn: Accounting,[address], [place], [address], [place] [facility] 12/14/2024 10:24:23 OBGyn Episode Ob Episode Information Episode Created Date Number of Fetuses Patient Bloodtype Patient rh Status Prepregnancy Weight lbs Domestic Partner Domestic Partner Phone Father Name Hand Cloth Folder Status 09/22/20 15 1 CLOSED Fetus Data First Name Last Name Admitted to NICU Weight (g) Sex Living Outcome Pediatric Complications Fetus ID Race Codes Race Delivery Type 3401.94 M Full Term [id number] Standard Vaginal Delivery Pascual Calculation Initial Pascual Date Initial Exam Date Initial Exam Provider Initial Ultrasound Date Last Menstrual Period Date Ultra Sound Weeks Gestation 0 Eighteen To Twenty Week Pascual Update Ultra Sound Date Fundal Height At Umbil Quickening Date Ultra Sound Latest Weeks Gestation Final Pascual Confirmed By Final Pascual Confirmed Date Final Pascual Date Ultra Sound Latest Days Gestation 0 0 Menstrual History Last Menstrual Date Menses Monthly On Bcp Conception Prior Menses Frequency Hcg Plus Date Menarche Onset Age Delivery Information Delivery Date Delivery Type Labor Anesthesia Weeks Gestation Incision Type Labor Labor Length Hrs Delivered By Post Complications Tubal Sterilization Discharge Date Comments 1 37 Discharge Information Feeding Method Contraceptive Method Maternal HG B and HCT Levels Ob Episode Information Episode Created Date Number of Fetuses Patient Bloodtype Patient rh Status Prepregnancy Weight lbs Domestic Partner Domestic Partner Phone Father Name Hand Cloth Folder Status 09/22/20 15 1 CLOSED Fetus Data First Name Last Name Admitted to NICU Weight (g) Sex Living Outcome Pediatric Complications Fetus ID Race Codes Race Delivery Type 2919.99 85 F Full Term [id number] Standard Vaginal Delivery Pascual Calculation Initial Pascual Date Initial Exam Date Initial Exam Provider Initial Ultrasound Date Last Menstrual Period Date Ultra Sound Weeks Gestation 0 Eighteen To Twenty Week Pascual Update Ultra Sound Date Fundal Height At Umbil Quickening Date Ultra Sound Latest Weeks Gestation Final Pascual Confirmed By Final Pascual Confirmed Date Final Pascual Date Ultra Sound Latest Days Gestation 0 0 Menstrual History Last Menstrual Date Menses Monthly On Bcp Conception Prior Menses Frequency Hcg Plus Date Menarche Onset Age Delivery Information Delivery Date Delivery Type Labor Anesthesia Weeks Gestation Incision Type Labor Labor Length Hrs Delivered By Post Complications Tubal Sterilization Discharge Date Comments 5 37 Discharge Information Feeding Method Contraceptive Method Maternal HG B and HCT Levels
--- OUTSIDE RECORDS SUMMARY | 2025-04-18 10:31 | XMS_ITS | Patient Health Record ---
Author Organization [facility] Address [address] [place] [address] Care Team Providers Care Log Sorting Supervisor Name Role Phone Clotilde Abbott Primary Care Provider Liv Lopez Unavailable [phone] Precious Sheffield Unavailable [phone] Allergies Allergen (clinical drug ingredient) Drug/Non Drug Allergy documented on EMR Reaction Allergy Type Onset Date Status No Known Drug Allergy Unknown Drug Allergy Active Reason For Referral No Information Medications Medication SIG (Take, Route, Frequency, Duration) Notes Start Date End Date Status Crestor 5 MG 1 tablet Orally Once a day Active Amantadine HCl 100 MG 1 tablet Orally On ce a day; Duration: 30 day(s) Active QUEtiapine Fumarate 400 MG 1 tablet Orally at bedtime; Duration: 30 days Active rOPINIRole HCl 0.25 MG 1 tablet Orally T hree times a day Active Ingrezza 80 MG 1 capsule Orally Onc e a day; Duration: 30 days Active Doxepin HCl 100 MG 1 capsule at bedtime Orally Once a day Active Omeprazole 40 MG 1 capsule Orally Onc e a day Active Citalopram Hydrobromide 40 MG 1 tablet Orally Once a day; Duration: 30 days Active Carbidopa-Levodopa 25-100 MG 1 tablet Orally Three times a day Active Mirtazapine 30 MG 1 tablet at bedtime Orally Once a day; Duration: 30 days Active Rosuvastatin Calcium 5 MG 1 capsule Oral ly Once a day Active Carvedilol 25 MG 1 tablet with food Orally Twice a day Not-Taking Acyclovir 400 mg one tab orally daily as needed Active Social History Tobacco Use: Social History Observation Description Date Details (start date - stop date) Never Smoker NA - NA Dont use, Tobacco Use/Smoking Question Answer Notes Are you a nonsmoker PRAPARE Question Answer Notes Date Completed/Updated: 10/29/2024 What is your current housing situation? I have h ousing Are you worried about losing your housing? No What is the highest level of school that you have finished? High school diploma or GED What is your current work situation? Oth erwise unemployed but not seeking work (ex. 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 Check all that apply I do not have problems meeting my needs Has lack of transportation k ept you from medical appointments, meetings, work or from getting things needed for daily living? No How often do you see or talk to people that you care about and feel close to? (For example: talking to friends on the phone, visiting friends or family, going to adventist or club meetings) 3 to 5 times a week How stressed are you? Stress is when someone feels tense, nervous, anxious, or can\t sleep at night because their mind is troubled A little bit In the past year have you sp ent more than 2 nights in a row in a long-term, longterm, mcfp center, or juvenile correctional facility? No Are you a refugee? No What country are you from? [place] Do you feel physically and e motionally safe where you currently live? Yes In the past year, have you b een afraid of your partner or ex-partner? No PRAPARE Score: 4 Tobacco Control (Standard) Question Answer Notes Tobacco use: Nonsmoker Problems Problem Type SNOMED Code ICD Code Onset Dates Problem Status W/U Status Risk Notes Problem Major depressive disorder (912161589) Major depressive disorder (F32.9) 03/04/2024 Active confirmed Problem Insomnia due to mental disorder (F51.05) 03/04/2024 Active confirmed Vital Signs Heart Rate 45 /min 10/29/2024 Respiratory Rate 16 /min 10/29/2024 Blood pressure diastolic 76 mm Hg 10/29/2024 Oximetry 93 % 10/29/2024 Height 61 in 10/29/2024 Blood pressure systolic 98 mm Hg 10/29/2024 Weight 124 lbs 10/29/2024 BMI 23.43 kg/m2 10/29/2024 Encounters Encounter Location Date Provider Diagnosis [address] [address] 04/22/2024 Clotilde Abbott Major depressive disorder F32.9 ; Dyskinesia, tardive G24.01 ; Insomnia due to mental disorder F51.05 and Non-tobacco user Z78.[address] [address] 07/17/2024 Kyria Scar Major depressive disorder F32.9 ; Dyskinesia, tardive G24.01 ; Insomnia due to mental disorder F51.05 and Non-tobacco user Z78.[address] [address] 08/19/2024 Kyria Abbott Major depressive disorder F32.9 ; Dyskinesia, tardive G24.01 ; Insomnia due to mental disorder F51.05 and Non-tobacco user Z78.[address] [address] 10/29/2024 Kyria Scar Major depressive disorder F32.9 ; Dyskinesia, tardive G24.01 ; Insomnia due to mental disorder F51.05 and Non-tobacco user Z78.[address] [address] 10/29/2024 Liv Lopez [address] [address] 11/25/2024 Kyria Scar Major depressive disorder F32.9 ; Dyskinesia, tardive G24.01 ; Insomnia due to mental disorder F51.05 and Non-tobacco user Z78.[address] [address] 01/15/2025 Kyria Abbott Major depressive disorder F32.9 ; Dyskinesia, tardive G24.01 ; Insomnia due to mental disorder F51.05 and Non-tobacco user Z78.9 [facility] [address] [place] [address] 10/15/2024 Clotilde Abbott Dyskinesia, tardive G24.01 [facility] [address] [place] [address] 11/06/2024 Clotilde Abbott Assessments Encounter Date Diagnosis (ICD Code) Assessment Notes Treatment Notes Treatment Clinical Notes Section Notes 04/22/2024 Major depressive disorder (ICD-10 - F32.9) 07/17/2024 Major depressive disorder (ICD-10 - F32.9) 08/19/2024 Major depressive disorder (ICD-10 - F32.9) 10/15/2024 Dyskinesia, tardive (ICD-10 - G24.01) 10/29/2024 Major depressive disorder (ICD-10 - F32.9) 11/25/2024 Major depressive disorder (ICD-10 - F32.9) 01/15/2025 Major depressive disorder (ICD-10 - F32.9) 10/29/2024 Dyskinesia, tardive (ICD-10 - G24.01) 11/25/2024 Dyskinesia, tardive (ICD-10 - G24.01) 01/15/2025 Dyskinesia, tardive (ICD-10 - G24.01) 07/17/2024 Dyskinesia, tardive (ICD-10 - G24.01) 08/19/2024 Dyskinesia, tardive (ICD-10 - G24.01) 04/22/2024 Dyskinesia, tardive (ICD-10 - G24.01) History: to [place] for 30+ years. Has 1 child, 2010 when her depression started. No currently in therapy. Hx of taking Wellbutrin (constipation, dizziness). Has 5 grandchildren. Today's visit: Patient is a 63-year-old female who presents for a psychiatric follow-up over phone and is located in [place], is accompanied by her Phillip. Previously seen on 03/20/2024 and during this appt was decreased on Seroquel to 200 mg and continued on Remeron, Celexa and Ingrezza as previously prescribed. Previous PHQ-9 score of 6, today is 2. Pt reports self increasing back to 400 mg of Seroquel due to inability to sleep; she wishes to continue taking this dose and does not wish to make any additional medication changes. Unable to complete AIMS due to nature of appt, reports some irregular muscle movements but that they are well controlled on current medication Ingrezza; would benefit from an in person appointment. No acute safety concerns the time of this appt, she is in agreement with treatment plan and was provided an opportunity to ask questions. May self-administer medications or be administered own oral medications per [facility] protocols. Provided informed consent with understanding of side effects, adverse effects, risks and benefits as well as alternative treatments as previously discussed and with the above recommended medications & other aspects of the treatment program. Agrees to return sooner if symptoms worsen or suicidal or homicidal ideations occur. 04/22/2024 Insomnia due to mental disorder (ICD-10 - F51.05) 08/19/2024 Insomnia due to mental disorder (ICD-10 - F51.05) History: to [place] for 30+ years. Has 1 child, 2010 when her depression started. No currently in therapy. Hx of taking Wellbutrin (constipation, dizziness). Has 5 grandchildren. Today's visit: Patient is a 63-year-old female who presents for a psychiatric follow-up over phone and is located in [place], is accompanied by her Phillip. Previously seen on 07/17/2024 and during this appt was continued on mirtazapine 30 mg, Celexa 40 mg, increased on Seroquel to 400 mg QHS, refilled on Ingrezza 80 mg and started on Zolpidem as needed for insomnia (Doxepin 100 mg from PCP). Previous PHQ-9 score of 2, today is 3. Depressive symptoms are currently stable on current medication regimen. Sleep remains limited to 5-6 hours per night that is not as restful as she liked, will discontinue Ambien as her insurance denied, she does not request any new medication for sleep. Plan is to continue current medications and follow up in 2 months for an in-person visit to assess tardive dyskinesia symptoms and complete an AIMS. Ingrezza refill was sent to [facility] today. No acute safety concerns the time of this appt, she is in agreement with treatment plan and was provided an opportunity to ask questions. May self-administer medications or be administered own oral medications per [facility] protocols. Provided informed consent with understanding of side effects, adverse effects, risks and benefits as well as alternative treatments as previously discussed and with the above recommended medications & other aspects of the treatment program. Agrees to return sooner if symptoms worsen or suicidal or homicidal ideations occur. 07/17/2024 Insomnia due to mental disorder (ICD-10 - F51.05) History: to [place] for 30+ years. Has 1 child, 2010 when her depression started. No currently in therapy. Hx of taking Wellbutrin (constipation, dizziness). Has 5 grandchildren. Today's visit: Patient is a 63-year-old female who presents for a psychiatric follow-up over phone and is located in [place], is accompanied by her [place]. Previously seen on 04/22/2024 and during this appt was increased back to quetiapine 400 mg, and continued on her other psychotropic current medications. Previous PHQ-9 score of 2, today is 2. Presents with c/o of chronic insomnia, likely multifactorial. Patient has tried various medication combinations without much success. She is currently taking all medications as prescribed. She reports taking Ambien in the past for a year without side effects. Sleep study Nov 2023 unremarkable. Will trial zolpidem 1.75mg SL in the middle of the night, at least 4 hours before planned wake time as needed, discussed only providing limited quantities as purpose is only for the 3 nights a week she is having extended difficulties sleeping. Reviewed risks including falls and confusion. Continue other psychotropic medications as currently prescribed, reports depression is well managed. Reviewed importance of sleep hygiene and maintaining consistent bedtime routine. Unable to complete AIMS due to nature of appt, denies any irregular muscle movements; would benefit from an in person appointment. No acute safety concerns the time of this appt, she is in agreement with treatment plan and was provided an opportunity to ask questions. May self-administer medications or be administered own oral medications per [facility] protocols. Provided informed consent with understanding of side effects, adverse effects, risks and benefits as well as alternative treatments as previously discussed and with the above recommended medications & other aspects of the treatment program. Agrees to return sooner if symptoms worsen or suicidal or homicidal ideations occur. 11/25/2024 Insomnia due to mental disorder (ICD-10 - F51.05) History: to [place] for 30+ years. Has 1 child, 2010 when her depression started. No currently in therapy. Hx of taking Wellbutrin (constipation, dizziness). Has 5 grandchildren. Today's visit: Patient is a 64-year-old female who presents for a psychiatric follow-up over phone and is located in [facility], hPillip is present. Reports no noticeable improvement in daytime fatigue with transition to IR of seroquel. She does not wish to decrease any of her medication and would like to continue as they prescribed. No additioanl side effects noted. No acute safety concerns the time of this appt, she is in agreement with treatment plan and was provided an opportunity to ask questions. May self-administer medications or be administered own oral medications per [facility] protocols. Provided informed consent with understanding of side effects, adverse effects, risks and benefits as well as alternative treatments as previously discussed and with the above recommended medications & other aspects of the treatment program. Agrees to return sooner if symptoms worsen or suicidal or homicidal ideations occur. 10/29/2024 Insomnia due to mental disorder (ICD-10 - F51.05) History: to [place] for 30+ years. Has 1 child, 2010 when her depression started. No currently in therapy. Hx of taking Wellbutrin (constipation, dizziness). Has 5 grandchildren. Today's visit: Patient is a 63-year-old female who presents for a psychiatric follow-up in office and is accompanied by her Phillip. Pt presents for an AIMS, noticable movement that is mild in tongue, lips and expression. More moderate symptoms noted in hands with digits moving in jerkying fashion while walking. Pt does not note any distress or difficulties speaking. Reports Ingrezza has been effective in reducing TD sx and wishes to continue taking; discussed option to transition to [place] if sx worsen. Reports daytime sedation, will trial quetiapine IR at bedtime vs ER. Will continue other medications as prescribed. No other side effects noted or reported. No acute safety concerns the time of this appt, she is in agreement with treatment plan and was provided an opportunity to ask questions. May self-administer medications or be administered own oral medications per [facility] protocols. Provided informed consent with understanding of side effects, adverse effects, risks and benefits as well as alternative treatments as previously discussed and with the above recommended medications & other aspects of the treatment program. Agrees to return sooner if symptoms worsen or suicidal or homicidal ideations occur. 01/15/2025 Insomnia due to mental disorder (ICD-10 - F51.05) History: to [place] for 30+ years. Has 1 child, 2010 when her depression started. No currently in therapy. Hx of taking Wellbutrin (constipation, dizziness). Has 5 grandchildren. Today's visit: Patient is a 64-year-old female who presents for a psychiatric follow-up over phone and is located in [place], Phillip is present. Reports stability in mood/anxiety on current medications and wishes to continue taking as prescribed. Sleep remains fair, estimating 6 hours a day with napping. Tardive muscle movements remain improved on Ingrezza. Does not wish to make any adjustments or changes. Unable to complete AIMS due to nature of appt, denies any irregular muscle movements; would benefit from an in person appointment.No acute safety concerns the time of this appt, she is in agreement with treatment plan and was provided an opportunity to ask questions. May self-administer medications or be administered own oral medications per [facility] protocols. Provided informed consent with understanding of side effects, adverse effects, risks and benefits as well as alternative treatments as previously discussed and with the above recommended medications & other aspects of the treatment program. Agrees to return sooner if symptoms worsen or suicidal or homicidal ideations occur. 01/15/2025 Non-tobacco user (ICD-10 - Z78.9) 10/29/2024 Non-tobacco user (ICD-10 - Z78.9) 11/25/2024 Non-tobacco user (ICD-10 - Z78.9) 07/17/2024 Non-tobacco user (ICD-10 - Z78.9) 08/19/2024 Non-tobacco user (ICD-10 - Z78.9) 04/22/2024 Non-tobacco user (ICD-10 - Z78.9) 10/29/2024 Other Bookkeeper Assistant met with Priya John to assist in working on building skills to help the consumer gain confidence in their independent living skills. SHANTA explained some of the services that [email or web address] offers, and informed the client if any needs do occur to reach out. HN provided the client with her business card and phone number. Plan Of Treatment No Information Insurance Providers Payer Name Payer Address Payer Phone Subscriber Number Group Number Insured Name Patient Relationship to Insured Coverage Start Date Coverage End Date [facility] [place] [address] [phone] [id number] Priya John Self - patient is the insured 4 MEDICAID [address] [place] [address] [id number] Priya John Self - patient is the insured 3 4 [facility] Attn Claims Department [address] [place] [address] [phone] [id number] Priya John Self - patient is the insured 4 MEDICARE PART A [address] [place] [address] [id number] rPiya John Self - patient is the insured 3 4 Medical (General) History Medical History History ICD Code Parkinsons GERD High Cholesterol Restless legs Tardive Dyskinesia Surgical History Surgery Date(Month/Year) Denies Hospitalization History Reason Date(Month/Year) broke wrist (Right) 11/2023
--- OUTSIDE RECORDS SUMMARY | 2025-04-18 10:57 | XMS_ITS | Clinical Summary ---
Author Organization [facility] Address [facility] [place] [address] Care Team Providers Care Power Shovel Operator Helper Name Role Phone Jack Ortiz Primary Care [...] the left lateral decubitus position, the Olympus [id number] colonoscope was introduced into the rectum and [...] to Health Maintenance Insurance NU Care Teams Power Shovel Operator Helper Relationship Specialty Start Date End Date Jack Ortiz PA PCP - General PHYSICIAN SUPERINTENDENT POWER 01/08/19
[2025-04-18 11:14] LABS: Hematocrit 35.4 % (37.0-47.0); Hemoglobin 11.8 g/dL (12.0-15.0); Immature Granulocyte Percent A 0.6 % (0-0.5); Lymphocytes Absolute Auto 0.46 K/mm3 (0.9-3.2); Mean Corpuscular HGB Conc 33.3 g/dl (32-36); Mean Corpuscular Hemoglobin 30.5 pg (26-34); Mean Corpuscular Volume 91.5 fl (80-100); Nucleated Red Blood Cells Absolute Auto 0.000 K/mm3 (0.0-0.012); Nucleated Red Blood Cells Perc 0.0 % (0.0-0.2); Platelet Count Result 168 k/mm3 (150-375); Red Blood Count 3.87 M/mm3 (4.2-5.4); White Blood Count 7.3 K/mm3 (4.5-10.0)
[2025-04-18 11:25] LABS: Alanine Aminotransferase 7 U/L (6-35); Albumin Level 4.0 g/dL (3.5-5.1); Alkaline Phosphatase 135 U/L (38-126); Anion Gap 13 mmol/L (4-12); Aspartate Amino Transferase 23 U/L (14-36); Bilirubin,Total 0.8 mg/dL (0.2-1.3); Blood Urea Nitrogen 17 mg/dL (7-17); Calcium 9.1 mg/dL (8.4-10.2); Carbon Dioxide 22 mmol/L (22-30); Chloride 106 mmol/L (98-107); Estimated CRCL calculation 41 ml/min; Estimated Glomerular Filt Rate 59; Glucose 144 mg/dL (65-110); Potassium 4.0 mmol/L (3.4-5.0); Sodium 141 mmol/L (137-145); Total Protein 7.1 g/dL (6.3-8.2)
--- NOTE | 2025-04-18 11:27 | ED.GENADULT ---
HPI - General Adult General Chief complaint: Back Pain/Injury Stated complaint: Back pain Time Seen by Provider: 04/18/25 10:46 History of Present Illness HPI narrative: 64-year-old female presented to the emergency department for evaluation for worsening left flank and left lower quadrant pain. Patient does have a prior history of kidney stones and was recently diagnosed with a 12 mL at a kidney stone by an outside hospital. Patient was in [place] last week and diagnosed with the kidney stone. Patient was given antibiotics, medication to help pass the stone and medication for pain control. Patient reports she has had decreased p.o. intake and worsening flank pain associated with nausea. Patient does have underlying history of Parkinson's disease. Related Data Home Medications ?Medication ?Instructions ?Recorded ?Confirmed ?Last Taken ?Type valbenazine 80 mg capsule 80 mg PO DAILY 03/08/21 04/18/25 Unknown History (Ingrezza) rosuvastatin 5 mg tablet 5 mg PO DAILY 10/02/21 04/18/25 04/18/25 09:00 History bupropion HCl 75 mg tablet 75 mg PO DAILY 09/19/23 04/18/25 Unknown History mirtazapine 45 mg tablet 30 mg PO HS 09/19/23 04/18/25 04/17/25 21:00 History citalopram 40 mg tablet 40 mg PO HS 12/08/23 04/18/25 04/17/25 21:00 History 40 mg famotidine 20 mg tablet 20 mg PO BID 12/08/23 04/18/25 04/18/25 09:00 History quetiapine 400 mg tablet,extended 800 mg PO HS 12/08/23 04/18/25 04/17/25 21:00 History release 24 hr doxepin 100 mg capsule 100 mg PO HS 04/18/25 04/18/25 04/17/25 21:00 History 100 mg omeprazole 20 mg capsule,delayed 40 mg PO HS 04/18/25 04/18/25 04/17/25 21:00 History release Allergies Allergy/AdvReac Type Severity Reaction Status Date / Time No Known Allergies Allergy Verified 06/26/24 10:06 Review of Systems Review of Systems: All systems reviewed & are unremarkable except as noted in HPI and below PMFSH Past Medical History Medical History Kidney stone Chronic idiopathic constipation Hyperlipidemia Insomnia Parkinsons disease Surgical History Surgical History H/O colonoscopy 03/10/20 Family History Family History Father Cancer Diabetes mellitus Hypertension Mother Cancer Depression Social History Social History Smoking packs per day: 0 Smoking cigarettes per day: 0.0 Years smoked: 0 Smoking pack-years: 0.00 Smoking status: Former smoker Second hand tobacco smoke exposure: No Alcohol intake: never Substance use: never Substance use type: does not use Do You Feel Safe in your Home?: Yes Lack of Transportation: No Lack of Food: Never True Current Housing: I Have Housing Concerned About Future Housing: No Difficulty Paying Gas/Electric Bills: No Difficulty Paying for Meds: No Currently Unemployed: No Education: High School Diploma/GED Difficulty w/ Childcare or Family Care: No Living arrangements: with family Spiritual care concerns: No Exam Narrative: APPEARANCE: Uncomfortable appearing HEAD: normocephalic, atraumatic. EYES: PERRLA/EOMI, conjunctivae clear. NOSE: Normal no drainage EARS:TMS clear with good light reflex. THROAT: Pharynx clear, no exudate. NECK: Supple. No adenopathy, no masses. RESPIRATORY: Airway patent, respirations nonlabored. Clear to auscultation bilaterally, no rales, rhonchi, wheezing. CARDIOVASCULAR: Regular rate and rhythm without murmurs rubs or gallops. ABDOMINAL: Soft, nontender, nondistended, normal bowel sounds MUSCULOSKELETAL: Moves all extremities. Strength/ROM intact, No edema, No calf tenderness. NEURO: Alert. Baseline tremor from Parkinson's SKIN: Warm, dry. Normal Color Course Vital Signs Vital signs: Vital Signs Temperature 98.3 F 04/18/25 10:39 Pulse Rate 110 H 04/18/25 10:39 Respiratory Rate 12 04/18/25 10:39 Blood Pressure 103/69 04/18/25 10:39 Pulse Oximetry 95 04/18/25 10:39 Oxygen Delivery Room Air 04/18/25 10:39 Temperature 98.3 F 04/18/25 10:39 Pulse Rate 90 04/18/25 17:00 Respiratory Rate 16 04/18/25 17:00 Blood Pressure 102/72 04/18/25 17:00 Pulse Oximetry 96 04/18/25 17:00 Oxygen Delivery Room Air 04/18/25 10:39 Medical Decision Making MDM Narrative Medical decision making narrative: 64-year-old female presents to the emergency department for evaluation for persistent kidney stone pain. Patient was diagnosed with a kidney stone by out side hospital with imaging. Patient has been taking narcotic pain medication for pain control but this has not been adequate. Patient presents to the emergency department complaining of worsening pain. Patient is afebrile with no leukocytosis hemoglobin 11.8. Patient's INR is 1.1. No acute abnormalities on her CMP was normal injured function UA is negative for infection but does have high red blood cells. I discussed the case with Urology and they were consulted. Discussed the case with the hospitalist patient was accepted for admission. Patient will be admitted for additional pain control. Patient and family were comfortable the plan for admission. All questions concerns were addressed. Differential Diagnosis Differential Diagnosis: Ureteral calculi, UTI, infected stone Vital Signs Vital Signs: Vital Signs Temperature 98.3 F 04/18/25 10:39 Pulse Rate 110 H 04/18/25 10:39 Respiratory Rate 12 04/18/25 10:39 Blood Pressure 103/69 04/18/25 10:39 Pulse Oximetry 95 04/18/25 10:39 Oxygen Delivery Room Air 04/18/25 10:39 Temperature 98.3 F 04/18/25 10:39 Pulse Rate 90 04/18/25 17:00 Respiratory Rate 16 04/18/25 17:00 Blood Pressure 102/72 04/18/25 17:00 Pulse Oximetry 96 04/18/25 17:00 Oxygen Delivery Room Air 04/18/25 10:39 Lab Data Lab results reviewed: Yes I reviewed the patient's lab results. 04/18/25 11:07 04/18/25 11:07 Labs: Lab Results 04/18/25 04/18/25 Range/Units 11:07 11:36 WBC 7.3 (4.5-10.0) K/mm3 RBC 3.87 L (4.2-5.4) M/mm3 Hgb 11.8 L (12.0-15.0) g/dL Hct 35.4 L (37.0-47.0) % MCV 91.5 (80-100) fl MCH 30.5 (26-34) pg MCHC 33.3 (32-36) g/dl RDW 12.7 (11.5-14.5) % Plt Count 168 (150-375) k/mm3 MPV 9.7 (7.4-10.4) fl Immature Gran % (Auto) 0.6 H (0-0.5) % Neut % (Auto) 81.8 H (45.5-73.1) % Lymph % (Auto) 6.3 L (18.3-44.2) % [place] % (Auto) 10.6 H (2.6-8.5) % Eos % (Auto) 0.6 (0-4.4) % Baso % (Auto) 0.1 L (0.2-1.2) % Lymph # (Auto) 0.46 L (0.9-3.2) K/mm3 [place] # (Auto) 0.8 H (0.1-0.6) K/mm3 Eos # (Auto) 0.0 (0-0.3) K/mm3 Baso # (Auto) 0.0 (0.0-0.1) K/mm3 Abs Immat Gran (auto) 0.04 H (0.00-0.031) K/mm3 Absolute Neuts (auto) 6.0 (1.3-6.7) K/mm3 Absolute Nucleated RBC 0.000 (0.0-0.012) K/mm3 Nucleated RBC % 0.0 (0.0-0.2) % PT 14.1 (11.1-14.7) Seconds INR 1.1 APTT 38.2 H (22.3-36.8) Seconds Sodium 141 (137-145) mmol/L Potassium 4.0 (3.4-5.0) mmol/L Chloride 106 (98-107) mmol/L Carbon Dioxide 22 (22-30) mmol/L Anion Gap 13 H (4-12) mmol/L BUN 17 (7-17) mg/dL Creatinine 0.95 (0.7-1.0) mg/dL Estim Creat Clear Calc 41 ml/min Estimated GFR 59 (59 - ) Glucose 144 H (65-110) mg/dL Lactic Acid 0.8 (0.7-2.0) mmol/L Calcium 9.1 (8.4-10.2) mg/dL Total Bilirubin 0.8 (0.2-1.3) mg/dL AST 23 (14-36) U/L ALT 7 (6-35) U/L Alkaline Phosphatase 135 H (38-126) U/L Total Protein 7.1 (6.3-8.2) g/dL Albumin 4.0 (3.5-5.1) g/dL Urine Color Yellow (Yellow) Urine Appearance Clear (Clear) Urine pH 5.5 (5.0-9.0) Ur Specific [place] 1.025 (1.001-1.035) Urine Protein 1+ H (Negative) mg/dL Urine Glucose (UA) Negative (Negative) mg/dL Urine Ketones 1+ H (Negative) mg/dL Ur Blood (Man) 2+ H (Negative) Urine Nitrate Negative (Negative) Urine Bilirubin Negative (Negative) Urine Urobilinogen 1.0 (<2.0) mg/dL Leukocyte Esterase Rfl Trace H (Negative) BRIGIDO/UL Urine RBC 51-100 H (0-2) /hpf Urine WBC 0-5 (0-3) /hpf Ur Squamous Epith Cells Occasional (Few) /hpf Urine Bacteria None seen /hpf Urine Casts 0-2 Imaging Data Radiologist's impression: Impressions Abdomen/Pelvis CT 04/18/25 12:42 IMPRESSION: 1. Obstructing 6 mm left mid ureteral stone at the L4-5 level with moderate hydronephrosis. 2: Nonobstructing right nephrolithiasis. Abdomen X-Ray 04/18/25 13:24 IMPRESSION: 1: No acute abdominal abnormality identified. Discharge Plan Discharge Clinical Impression: Calculus, ureteral Patient Disposition: Still a Patient Condition: Stable
[2025-04-18 11:35] LABS: INR 1.1; Prothrombin Time 14.1 Seconds (11.1-14.7)
[2025-04-18 11:36] LABS: Partial Thromboplastin Time 38.2 Seconds (22.3-36.8)
[2025-04-18 11:58] LABS: Add Urine Microscopic? YES; Appearance Urine Clear (Clear); Glucose Urine UA Negative (Negative); Leukocyte Esterase Ur Trace LEU/UL (Negative); Nitrate Urine Negative (Negative); Non Pathogenic Casts 0-2; Specific Grav Ur 1.025 (1.001-1.035)
[2025-04-18] MEDS: ONDANSETRON INJ 4 MG/2 ML VIAL IV PUSH (12:05)
[2025-04-18] MEDS: HYDROmorphone HCL INJ (*CRX) 2 MG/ML VIAL 0.5 MG IV PUSH ×2 (12:06→17:49)
--- NOTE | 2025-04-18 14:32 | P.HP_ITS ---
H&P: HPI History of Present Illness Date/Time: 04/18/25 14:32 Chief Complaint: Flank Pain Narrative: 64 y/o F with PMH of Parkinson's disease, hyperlipidemia, insomnia, and kidney stones presents here with flank pain. The patient presents here from home on 04/18 for further evaluation of left flank pain. She reports onset of left flank pain 1+ week ago. She describes the pain as sharp, radiation into her left lower abdomen, intermittent, and no modifying factors. The patient notes that she was recently diagnosed with a 12 mm kidney stone at an outside hospital in [place] last week. She was discharg ed with antibiotics, Flomax, and analgesics for pain control. However despite oral pain medications she reports the flank pain has worsened and is now associated with decreased appetite and nausea without vomiting. She denies fever, chills, dysuria, hematuria, or diarrhea. Reporting constipation. Initial VS at presentation: 98.3? F, HR 110, RR 12, 103/69, and 95% on RA. ED workup showed: No leukocytosis, hemoglobin 11.8, INR 1.1, normal renal function, glucose 144, UA showed 1+ protein/1+ ketones/2+ blood/trace leuks/51- [address] of the abdomen/pelvis showed an obstructing 6 mm left mid ureteral stone with moderate hydronephrosis and nonobstructing right nephrolithiasis. Review of Systems Review of Systems: All systems reviewed & are unremarkable except as noted in HPI and below PMFSH Past Medical History Medical History Kidney stone Chronic idiopathic constipation Hyperlipidemia Insomnia Parkinsons disease Surgical History Surgical History H/O colonoscopy 03/10/20 Family History Family History Father Cancer Diabetes mellitus Hypertension Mother Cancer Depression Social History Social History Smoking packs per day: 0 Smoking cigarettes per day: 0.0 Years smoked: 0 Smoking pack-years: 0.00 Smoking status: Former smoker Second hand tobacco smoke exposure: No Alcohol intake: never Substance use: never Substance use type: does not use Do You Feel Safe in your Home?: Yes Lack of Transportation: No Lack of Food: Never True Current Housing: I Have Housing Concerned About Future Housing: No Difficulty Paying Gas/Electric Bills: No Difficulty Paying for Meds: No Currently Unemployed: No Education: High School Diploma/GED Difficulty w/ Childcare or Family Care: No Living arrangements: with family Spiritual care concerns: No Meds Home Medications and Allergies Home Medications ?Medication ?Instructions ?Recorded ?Confirmed ?Type valbenazine 80 mg capsule 80 mg PO DAILY 03/08/21 04/18/25 History (Ingrezza) rosuvastatin 5 mg tablet 5 mg PO DAILY 10/02/21 04/18/25 History bupropion HCl 75 mg tablet 75 mg PO DAILY 09/19/23 04/18/25 History mirtazapine 45 mg tablet 30 mg PO HS 09/19/23 04/18/25 History citalopram 40 mg tablet 40 mg PO HS 12/08/23 04/18/25 History famotidine 20 mg tablet 20 mg PO BID 12/08/23 04/18/25 History quetiapine 400 mg tablet,extended 800 mg PO HS 12/08/23 04/18/25 History release 24 hr hydrocodone 5 mg-acetaminophen 325 1 tablet PO Q6H PRN pain #30 tabs 12/20/23 04/18/25 Rx mg tablet linaclotide 145 mcg capsule 145 mcg PO QAM #90 caps 01/10/24 04/18/25 Rx (Linzess) acyclovir 400 mg tablet 400 mg PO DAILY #90 tabs 02/28/24 04/18/25 Rx amantadine HCl 100 mg capsule 100 mg PO BID #180 caps 06/26/24 04/18/25 Rx carbidopa 25 mg-levodopa 100 mg 1 tablet PO QID #360 tabs 06/26/24 04/18/25 Rx tablet ropinirole 0.25 mg tablet 0.25 mg PO TID #90 tabs 12/23/24 04/18/25 Rx doxepin 100 mg capsule 100 mg PO HS 04/18/25 04/18/25 History omeprazole 20 mg capsule,delayed 40 mg PO HS 04/18/25 04/18/25 History release Allergies Allergy/AdvReac Type Severity Reaction Status Date / Time No Known Allergies Allergy Verified 06/26/24 10:06 Vital Signs Vital Signs - 24 hr 04/18/25 10:39 04/18/25 12:00 04/18/25 14:00 Temperature 98.3 F Pulse Rate 110 H 100 97 Respiratory Rate 12 16 16 Blood Pressure 103/69 109/80 107/82 Pulse Oximetry 95 96 95 Oxygen Delivery Room Air Exam Const: General: comfortable and no acute distress Other: , female, nontoxic appearing HENMT: Face/Nose/Sinus: Normal nares present Mouth: Yes moist mucous membranes Eyes: General: appearance normal, both eyes and all related structures Sclera: sclerae normal Pupils: Equal, round and reactive pupils present EOM: EOMs intact bilaterally Resp: Effort & Inspection: normal respiratory effort Auscultation: clear to auscultation bilaterally Cardio: Rate: regular rate Rhythm: regular rhythm Other: S1-S2 present without murmur, rub, ectopy GI: Other: Abdomen soft, nondistended, nontender. Normoactive bowel sounds in all quadrants. Skin: General skin exam: normal color and no rashes or lesions noted Wounds: no wounds Neuro: Speech: normal speech Motor exam (neuro): 5/5 motor strength present throughout Sensory Exam: normal sensation Other: A&O x4 Extrem: General: normal to inspection Psych: Mental Status: mental status grossly normal Affect: normal affect Other: Good insight and judgment, pleasant H&P: Results Labs Labs: Short CBC 04/18/25 Range/Units 11:07 WBC 7.3 (4.5-10.0) K/mm3 Hgb 11.8 L (12.0-15.0) g/dL Hct 35.4 L (37.0-47.0) % Plt Count 168 (150-375) k/mm3 [facility] 04/18/25 11:07 Sodium 141 Potassium 4.0 Chloride 106 Carbon Dioxide 22 BUN 17 Creatinine 0.95 Glucose 144 H Calcium 9.1 Liver Function 04/18/25 Range/Units 11:07 Total Bilirubin 0.8 (0.2-1.3) mg/dL AST 23 (14-36) U/L ALT 7 (6-35) U/L Alkaline Phosphatase 135 H (38-126) U/L Albumin 4.0 (3.5-5.1) g/dL Urine 04/18/25 Range/Units 11:36 Urine Color Yellow (Yellow) Urine Appearance Clear (Clear) Urine pH 5.5 (5.0-9.0) Ur Specific [place] 1.025 (1.001-1.035) Urine Protein 1+ H (Negative) mg/dL Urine Glucose (UA) Negative (Negative) mg/dL Assessment and Plan Assessment and plan (1) Bilateral nephrolithiasis: Code(s): N20.0 - Calculus of kidney Status: Acute Assessment and Plan: - CT abd/pelvis: 1. Obstructing 6 mm left mid ureteral stone at the L4-5 level with moderate hydronephrosis. 2: Nonobstructing right nephrolithiasis. - abd XR: No acute abdominal abnormality identified. - UA showed lobe indication for infection with trace leuk esterase only and no epithelial cells. - urology consulted, made NPO at midnight and repeat KUB in a.m. - failed home PO analgesics, now requiring IV analgesics. Pain control with Tylenol, [place], Dilaudid - antiemetic p.r.n. - monitor renal function and WBC - IV fluids: LR at 100 mL/hour (2) Parkinsons disease: Qualifiers: Dyskinesia presence: with dyskinesia Fluctuating manifestations: with fluctuating manifestations Qualified Code(s): G20.B2 - Parkinson's disease with dyskinesia, with fluctuations Code(s): G20 - Parkinson's disease Status: Chronic Assessment and Plan: - continue home medication: Sinemet Plan Diet: regular, NPO at midnight GI Prophylaxis: n/a DVT Prophylaxis: SCDs IV fluids: 100 mL/hour Lines/Tubes: Peripheral IV Code Status: Full code Quality VTE Prophylaxis VTE prophylaxis: mechanical ordered Hospitalist [facility] Advance Care Plan I have confirmed that the patient's Advanced Care Plan is present, code status is documented, or surrogate decision maker is listed in patient medical record.: Yes Medication Reconciliation I have utilized all available resources to obtain, update and review the patients current medications (includes all prescriptions, OTC, herbals, cannabis, and nutritional supplements).: Yes
--- NOTE | 2025-04-18 15:35 | PC.NURSE ---
Patient ambulated to the bathroom, had a steady gait.
--- NOTE | 2025-04-18 18:30 | ADMGEN ---
This patient, Priya John, was admitted to 3 Med Surg Room 320-01. Patient/family oriented to hospital policies and general routines including ID bracelet, bed and alarms, visiting hours, pain management, procedures, bathroom and other care routines, personal items, smoking policy, room service/diet, and visiting hours. Information on how to activate the Rapid Response Team has been discussed. Patient/Family are encouraged to report perceived risks to care and to ask questions if they do not understand what they are told or what they should do.
[2025-04-18] MEDS: LACTATED RINGERS 1,000 ML 100 ML IV CONT (19:09)
[2025-04-19] VITALS (13 sets, daily range): BP systolic 96–127; BP diastolic 62–81; PULSE 76–98; RESP 10–18; TEMP 36.1–36.6; O2SAT 92–100
[2025-04-19] MEDS: LACTATED RINGERS 1,000 ML 100 ML IV CONT (03:56)
[2025-04-19 06:19] LABS: Hematocrit 31.4 % (37.0-47.0); Hemoglobin 10.3 g/dL (12.0-15.0); Immature Granulocyte Percent A 0.8 % (0-0.5); Lymphocytes Absolute Auto 0.82 K/mm3 (0.9-3.2); Mean Corpuscular HGB Conc 32.8 g/dl (32-36); Mean Corpuscular Hemoglobin 30.6 pg (26-34); Mean Corpuscular Volume 93.2 fl (80-100); Nucleated Red Blood Cells Absolute Auto 0.000 K/mm3 (0.0-0.012); Nucleated Red Blood Cells Perc 0.0 % (0.0-0.2); Platelet Count Result 163 k/mm3 (150-375); Red Blood Count 3.37 M/mm3 (4.2-5.4); White Blood Count 3.9 K/mm3 (4.5-10.0)
[2025-04-19 06:41] LABS: Anion Gap 4 mmol/L (4-12); Blood Urea Nitrogen 14 mg/dL (7-17); Calcium 8.7 mg/dL (8.4-10.2); Carbon Dioxide 27 mmol/L (22-30); Chloride 103 mmol/L (98-107); Estimated CRCL calculation 52 ml/min; Estimated Glomerular Filt Rate > 60; Glucose 80 mg/dL (65-110); Potassium 3.8 mmol/L (3.4-5.0); Sodium 134 mmol/L (137-145)
--- NOTE | 2025-04-19 06:50 | P.PNAN_ITS ---
Anes - Eval Pre Procedure Procedure: Operation Date: 04/19/25 07:30 Proposed Procedures p Cysto, RPG, Stone Ext, Stent Placement - Nacho Dillard MD Date/Time: 04/19/25 06:50 Pre Op Diagnosis: ureteral calculi Patient Data Age: 64 Gender: F Height: 1.57 m Weight: 56.8 kg Last Vital Signs Temp 36.1 C L 04/18/25 22:00 Pulse 88 04/18/25 22:00 Resp 18 04/18/25 22:00 BP 121/81 04/18/25 22:00 Pulse Ox 100 04/18/25 22:00 O2 Del Method Room Air 04/18/25 21:18 Allergies Allergy/AdvReac Type Severity Reaction Status Date / Time No Known Allergies Allergy Verified 06/26/24 10:06 Home Medications ?Medication ?Instructions ?Recorded ?Confirmed ?Type valbenazine 80 mg capsule 80 mg PO DAILY 03/08/21 04/18/25 History (Ingrezza) rosuvastatin 5 mg tablet 5 mg PO DAILY 10/02/21 04/18/25 History bupropion HCl 75 mg tablet 75 mg PO DAILY 09/19/23 04/18/25 History mirtazapine 45 mg tablet 30 mg PO HS 09/19/23 04/18/25 History citalopram 40 mg tablet 40 mg PO HS 12/08/23 04/18/25 History famotidine 20 mg tablet 20 mg PO BID 12/08/23 04/18/25 History quetiapine 400 mg tablet,extended 800 mg PO HS 12/08/23 04/18/25 History release 24 hr hydrocodone 5 mg-acetaminophen 325 1 tablet PO Q6H PRN pain #30 tabs 12/20/23 04/18/25 Rx mg tablet linaclotide 145 mcg capsule 145 mcg PO QAM #90 caps 01/10/24 04/18/25 Rx (Linzess) acyclovir 400 mg tablet 400 mg PO DAILY #90 tabs 02/28/24 04/18/25 Rx amantadine HCl 100 mg capsule 100 mg PO BID #180 caps 06/26/24 04/18/25 Rx carbidopa 25 mg-levodopa 100 mg 1 tablet PO QID #360 tabs 06/26/24 04/18/25 Rx tablet ropinirole 0.25 mg tablet 0.25 mg PO TID #90 tabs 12/23/24 04/18/25 Rx doxepin 100 mg capsule 100 mg PO HS 04/18/25 04/18/25 History omeprazole 20 mg capsule,delayed 40 mg PO HS 04/18/25 04/18/25 History release Laboratory Tests 04/18/25 04/18/25 04/19/25 11:07 11:36 05:33 WBC 7.3 K/mm3 3.9 L K/mm3 (4.5-10.0) (4.5-10.0) RBC 3.87 L M/mm3 3.37 L M/mm3 (4.2-5.4) (4.2-5.4) Hgb 11.8 L g/dL 10.3 L g/dL (12.0-15.0) (12.0-15.0) Hct 35.4 L % 31.4 L % (37.0-47.0) (37.0-47.0) MCV 91.5 fl 93.2 fl (80-100) (80-100) MCH 30.5 pg 30.6 pg (26-34) (26-34) MCHC 33.3 g/dl 32.8 g/dl (32-36) (32-36) RDW 12.7 % 12.9 % (11.5-14.5) (11.5-14.5) Plt Count 168 k/mm3 163 k/mm3 (150-375) (150-375) MPV 9.7 fl 10.1 fl (7.4-10.4) (7.4-10.4) Immature Gran % (Auto) 0.6 H % 0.8 H % (0-0.5) (0-0.5) Neut % (Auto) 81.8 H % 64.1 % (45.5-73.1) (45.5-73.1) Lymph % (Auto) 6.3 L % 21.0 % (18.3-44.2) (18.3-44.2) Casey % (Auto) 10.6 H % 11.8 H % (2.6-8.5) (2.6-8.5) Eos % (Auto) 0.6 % 1.8 % (0-4.4) (0-4.4) Baso % (Auto) 0.1 L % 0.5 % (0.2-1.2) (0.2-1.2) Lymph # (Auto) 0.46 L K/mm3 0.82 L K/mm3 (0.9-3.2) (0.9-3.2) Casey # (Auto) 0.8 H K/mm3 0.5 K/mm3 (0.1-0.6) (0.1-0.6) Eos # (Auto) 0.0 K/mm3 0.1 K/mm3 (0-0.3) (0-0.3) Baso # (Auto) 0.0 K/mm3 0.0 K/mm3 (0.0-0.1) (0.0-0.1) Abs Immat Gran (auto) 0.04 H K/mm3 0.03 K/mm3 (0.00-0.031) (0.00-0.031) Absolute Neuts (auto) 6.0 K/mm3 2.5 K/mm3 (1.3-6.7) (1.3-6.7) Absolute Nucleated RBC 0.000 K/mm3 0.000 K/mm3 (0.0-0.012) (0.0-0.012) Nucleated RBC % 0.0 % 0.0 % (0.0-0.2) (0.0-0.2) PT 14.1 Seconds (11.1-14.7) INR 1.1 APTT 38.2 H Seconds (22.3-36.8) Sodium 141 mmol/L 134 L mmol/L (137-145) (137-145) Potassium 4.0 mmol/L 3.8 mmol/L (3.4-5.0) (3.4-5.0) Chloride 106 mmol/L 103 mmol/L (98-107) (98-107) Carbon Dioxide 22 mmol/L 27 mmol/L (22-30) (22-30) Anion Gap 13 H mmol/L 4 mmol/L (4-12) (4-12) BUN 17 mg/dL 14 mg/dL (7-17) (7-17) Creatinine 0.95 mg/dL 0.74 mg/dL (0.7-1.0) (0.7-1.0) Estim Creat Clear Calc 41 ml/min 52 ml/min Estimated GFR 59 > 60 (59 - ) (59 - ) Glucose 144 H mg/dL 80 mg/dL (65-110) (65-110) Lactic Acid 0.8 mmol/L (0.7-2.0) Calcium 9.1 mg/dL 8.7 mg/dL (8.4-10.2) (8.4-10.2) Total Bilirubin 0.8 mg/dL (0.2-1.3) AST 23 U/L (14-36) ALT 7 U/L (6-35) Alkaline Phosphatase 135 H U/L (38-126) Total Protein 7.1 g/dL (6.3-8.2) Albumin 4.0 g/dL (3.5-5.1) Urine Color Yellow (Yellow) Urine Appearance Clear (Clear) Urine pH 5.5 (5.0-9.0) Ur Specific [place] 1.025 (1.001-1.035) Urine Protein 1+ H mg/dL (Negative) Urine Glucose (UA) Negative mg/dL (Negative) Urine Ketones 1+ H mg/dL (Negative) Ur Blood (Man) 2+ H (Negative) Urine Nitrate Negative (Negative) Urine Bilirubin Negative (Negative) Urine Urobilinogen 1.0 mg/dL (<2.0) Leukocyte Esterase Rfl Trace H BRIGIDO/UL (Negative) Urine RBC 51-100 H /hpf (0-2) Urine WBC 0-5 /hpf (0-3) Ur Squamous Epith Cells Occasional /hpf (Few) Urine Bacteria None seen /hpf Urine Casts 0-2 Patient hx anesthesia problems: none Family hx anesthesia problems: none Results Review: All pre-operative results and documents have been reviewed as part of the pre- operative evaluation. COUNTS INCLUDE 234 BEDS AT THE [facility] Past Medical History Medical History Kidney stone Chronic idiopathic constipation Hyperlipidemia Insomnia Parkinsons disease Surgical History Surgical History H/O colonoscopy 03/10/20 Family History Family History Father Cancer Diabetes mellitus Hypertension Mother Cancer Depression Social History Social History Smoking packs per day: 0 Smoking cigarettes per day: 0.0 Years smoked: 0 Smoking pack-years: 0.00 Smoking status: Former smoker Second hand tobacco smoke exposure: No Alcohol intake: never Substance use: never Substance use type: does not use Do You Feel Safe in your Home?: Yes Lack of Transportation: No Lack of Food: Never True Current Housing: I Have Housing Concerned About Future Housing: No Difficulty Paying Gas/Electric Bills: No Difficulty Paying for Meds: No Currently Unemployed: No Education: High School Diploma/GED Difficulty w/ Childcare or Family Care: No Living arrangements: with family Spiritual care concerns: No Exam Day of Procedure 04/19/25 06:50 Patient weight: normal Heart: regular rate and rhythm Lungs: clear to auscultation and normal air movement Airway: Mallampati scale class II Neurological: alert and oriented
--- NOTE | 2025-04-19 07:28 | P.CONUR_ITS ---
Assessment and Plan Assessment and plan (1) Calculus, ureteral: Code(s): N20.1 - Calculus of ureter Status: Acute Assessment and Plan: * cystoscopy, left ureteroscopy with stone extraction, possible laser lithotripsy and stent placement Urology Consult Note HPI Date Seen: 04/19/25 Requesting Physician: Ady Doherty MD Primary Care Provider: Angelita Marinelli, PA Consult Narrative Narrative: Priya John is a 64 year old female without history urolithiasis who was occasion in in [place] 10-14 days ago when she developed left flank pain. Reportedly, she was seen at a hospital there and told she had a 12 mm left ureteral stone. This was managed as an outpatient but she comes to the ER at [facility] yesterday with recurrent severe left flank pain and nausea. Imaging now reveals just a single 6 mm left mid ureteral stone with moderate hydronephrosis. She denies fevers chills or gross hematuria. Review of Systems 2 Review of Systems: All systems reviewed & are unremarkable except as noted in HPI and below Cardiovascular: Cardiovascular: Denies chest pain, Denies lightheadedness, Denies palpitations and Denies dyspnea Respiratory: Respiratory: Denies dyspnea Gastrointestinal: Gastrointestinal: Denies diarrhea, Denies nausea and Denies vomiting Genitourinary: Genitourinary: Denies hematuria and Denies dysuria Endocrine: Endocrine: Denies palpitations PMFSH Past Medical History Medical History Kidney stone Chronic idiopathic constipation Hyperlipidemia Insomnia Parkinsons disease Surgical History Surgical History H/O colonoscopy 03/10/20 Family History Family History Father Cancer Diabetes mellitus Hypertension Mother Cancer Depression Social History Social History Smoking packs per day: 0 Smoking cigarettes per day: 0.0 Years smoked: 0 Smoking pack-years: 0.00 Smoking status: Former smoker Second hand tobacco smoke exposure: No Alcohol intake: never Substance use: never Substance use type: does not use Do You Feel Safe in your Home?: Yes Lack of Transportation: No Lack of Food: Never True Current Housing: I Have Housing Concerned About Future Housing: No Difficulty Paying Gas/Electric Bills: No Difficulty Paying for Meds: No Currently Unemployed: No Education: High School Diploma/GED Difficulty w/ Childcare or Family Care: No Living arrangements: with family Spiritual care concerns: No Meds Home Medications and Allergies Home Medications ?Medication ?Instructions ?Recorded ?Confirmed ?Type valbenazine 80 mg capsule 80 mg PO DAILY 03/08/21 04/18/25 History (Ingrezza) rosuvastatin 5 mg tablet 5 mg PO DAILY 10/02/21 04/18/25 History bupropion HCl 75 mg tablet 75 mg PO DAILY 09/19/23 04/18/25 History mirtazapine 45 mg tablet 30 mg PO HS 09/19/23 04/18/25 History citalopram 40 mg tablet 40 mg PO HS 12/08/23 04/18/25 History famotidine 20 mg tablet 20 mg PO BID 12/08/23 04/18/25 History quetiapine 400 mg tablet,extended 800 mg PO HS 12/08/23 04/18/25 History release 24 hr hydrocodone 5 mg-acetaminophen 325 1 tablet PO Q6H PRN pain #30 tabs 12/20/23 04/18/25 Rx mg tablet linaclotide 145 mcg capsule 145 mcg PO QAM #90 caps 01/10/24 04/18/25 Rx (Linzess) acyclovir 400 mg tablet 400 mg PO DAILY #90 tabs 02/28/24 04/18/25 Rx amantadine HCl 100 mg capsule 100 mg PO BID #180 caps 06/26/24 04/18/25 Rx carbidopa 25 mg-levodopa 100 mg 1 tablet PO QID #360 tabs 06/26/24 04/18/25 Rx tablet ropinirole 0.25 mg tablet 0.25 mg PO TID #90 tabs 12/23/24 04/18/25 Rx doxepin 100 mg capsule 100 mg PO HS 04/18/25 04/18/25 History omeprazole 20 mg capsule,delayed 40 mg PO HS 04/18/25 04/18/25 History release Allergies Allergy/AdvReac Type Severity Reaction Status Date / Time No Known Allergies Allergy Verified 06/26/24 10:06 Vital Signs Vital Signs - 24 hr 04/18/25 10:39 04/18/25 12:00 04/18/25 12:00 Temperature 98.3 F Pulse Rate 110 H 100 100 Respiratory Rate 12 16 20 Blood Pressure 103/69 109/80 111/78 Pulse Oximetry 95 96 96 Oxygen Delivery Room Air 04/18/25 13:00 04/18/25 14:00 04/18/25 14:01 Temperature Pulse Rate 95 97 96 Respiratory Rate 14 16 14 Blood Pressure 110/80 107/82 107/82 Pulse Oximetry 93 95 96 Oxygen Delivery 04/18/25 14:30 04/18/25 17:00 04/18/25 18:00 Temperature Pulse Rate 97 90 Respiratory Rate 15 16 Blood Pressure 116/81 102/72 Pulse Oximetry 95 96 Oxygen Delivery Room Air 04/18/25 20:00 04/18/25 21:18 04/18/25 22:00 Temperature 96.9 F L Pulse Rate 88 Respiratory Rate 18 Blood Pressure 121/81 Pulse Oximetry 96 100 Oxygen Delivery Room Air Room Air 04/19/25 06:00 Temperature 97.1 F L Pulse Rate 76 Respiratory Rate 18 Blood Pressure 125/76 Pulse Oximetry 100 Oxygen Delivery Exam 2 Const: General: no acute distress Resp: Effort & Inspection: normal respiratory effort GI: Inspection: non-distended GI Palp: No abdominal tenderness and No Guarding due to palpation present (GI) Auscultation: normal bowel sounds Results Labs 04/19/25 05:33 04/19/25 05:33 Labs: Short CBC 04/18/25 04/19/25 Range/Units 11:07 05:33 WBC 7.3 3.9 L (4.5-10.0) K/mm3 Hgb 11.8 L 10.3 L (12.0-15.0) g/dL Hct 35.4 L 31.4 L (37.0-47.0) % Plt Count 168 163 (150-375) k/mm3 BMP 04/18/25 04/19/25 11:07 05:33 Sodium 141 134 L Potassium 4.0 3.8 Chloride 106 103 Carbon Dioxide 22 27 BUN 17 14 Creatinine 0.95 0.74 Glucose 144 H 80 Calcium 9.1 8.7 Liver Function 04/18/25 Range/Units 11:07 Total Bilirubin 0.8 (0.2-1.3) mg/dL AST 23 (14-36) U/L ALT 7 (6-35) U/L Alkaline Phosphatase 135 H (38-126) U/L Albumin 4.0 (3.5-5.1) g/dL Urine 04/18/25 Range/Units 11:36 Urine Color Yellow (Yellow) Urine Appearance Clear (Clear) Urine pH 5.5 (5.0-9.0) Ur Specific [place] 1.025 (1.001-1.035) Urine Protein 1+ H (Negative) mg/dL Urine Glucose (UA) Negative (Negative) mg/dL
--- NOTE | 2025-04-19 07:31 | P.PNAN_ITS ---
Anes - Eval Final PreProcedure Day of Procedure 04/19/25 07:31 Patient weight: normal Heart: regular rate and rhythm Lungs: clear to auscultation Airway: Mallampati scale class II Neurological: alert and oriented Last oral intake: >/= 8 hours ASA classification: III Emergent: no Anesthetic plan: proceed Anesthesia type and monitoring: general LMA and standard monitoring Results Review: All pre-operative results and documents have been reviewed as part of the pre- operative evaluation. Informed Consent: The patient's anesthetic plan and its attendant risks and benefits were discussed with the patient/family/POA. Questions were solicited and answers provided to the satisfaction of the patient/family/POA.
--- NOTE | 2025-04-19 07:31 | WPDHPUPDATE1 ---
History and Physical Update Update Date/Time: 04/19/25 07:31 History and Physical has been reviewed, including an updated exam of the patient. There are NO changes in the patient's condition. Risks, benefits, and alternatives have been discussed and questions answered. Patient agrees to proceed with procedure.
--- NOTE | 2025-04-19 07:45 | PC.NURSE ---
To OR per bed, IV left AC. Report given to pre-op RN.
[2025-04-19] MEDS: LIDOCAINE 2% GEL UROJET 10 ML PKG MUCOUS MEM (07:52)
--- NOTE | 2025-04-19 08:11 | S_PTH ---
PATIENT: Priya John LOC: [id number] U#:[id number] AGE/SX: 64/F ROOM: 320 RE04/18/[address]: Ady Doherty MD : 1960 BED: 01 DIS: 04/19/2025 SPEC #: [id number] RECD: 04/20/25 08:05 STATUS: KATHLEEN REAsael #: [id number] CAROL: 04/19/25 08:[address]: Nacho Dillard DEPT: [facility] Surgical RECD BY: Jennifer Fontenot ENTERED: 04/20/25 08:05 SP TYPE: Surgical OTHR DR: Angelita Marinelli, HUNTER Doherty MD Tissues: A - Stone Procedures: Gross Exam Level 1 Crystalline Analysis
[2025-04-19] MEDS: LACTATED RINGERS 1,000 ML 30 ML IV CONT (08:22)
--- NOTE | 2025-04-19 08:24 | W.PM.PROC2 ---
Procedure Note - Detailed Date of Procedure 04/19/25 Pre-op Diagnosis Left ureteral calculus Post-op Diagnosis Same Procedure Performed Cystoscopy, left ureteroscopy with laser lithotripsy, stone extraction, left retrograde pyelogram and left ureteral stent placement Surgeon Nacho Dillard MD Anesthesia General Description of Procedure patient is brought to the operative suite she was prepped draped in routine sterile fashion while in dorsal lithotomy position after the uneventful induction of a general LMA anesthetic. Cystoscopy was undertaken with a 19 F rigid cystoscope. The bladder neck and urethra endoscopically normal. Bladder mucosa is normal without hyperemia. There is no intravesical foreign body or neoplasm. She has a single orthotopic ureteral orifice bilaterally. A 0.035 in glidewire was advanced into her left renal pelvis under fluoroscopy. The distal ureter was dilated with an 8 F 10 F dilator. I was able to reach the stone with a semi-rigid ureteral scope but with irrigation and flushed into her kidney. I placed a safety wire and a 7.5 F flexible ureteral scope. Using a 200 micron Jus laser fiber the stone is dusted. One moderate size, with 3-4 mm pieces extracted, the remainder of the stone is dusted to pieces less than 2 mm. After extracting that piece I performed a retrograde pyelogram and saw no evidence of extravasation. A 4.8 F variable length stent was appropriately positioned with the proximal coil in the renal pelvis and distal coil in the bladder. Patient tolerated the procedure well and was taken recovery room in good condition. Urine Output 400 Drains No Packing No Pathology None sent Complications No immediate complications Condition Stable Disposition PACU
--- NOTE | 2025-04-19 08:53 | PHAR ---
The patient's home med of Ingrezza (VALBENAZINE) 80MG HAS BEEN VERIFIED. THE PILL BOTTLE CONTAINED 1 CAPSULE.
--- NOTE | 2025-04-19 10:00 | PC.NURSE ---
Returned from OR per bed. Report received from Silke ROMERO.
[2025-04-19] MEDS: [UNRECOGNIZED DRUG - OTHER] PO (10:12)
[2025-04-19] MEDS: VALBENAZINE 80 MG PO (10:12)
[2025-04-19] MEDS: AMANTADINE HCL 100 MG CAPSULE PO (10:24)
[2025-04-19] MEDS: DOCUSATE SODIUM 100 MG CAPSULE PO (10:24)
[2025-04-19] MEDS: CARBIDOPA/LEVODOPA 25/100 MG TABLET 1 TABLET PO (10:25)
[2025-04-19] MEDS: PANTOPRAZOLE 40 MG TABLET PO (10:25)
[2025-04-19] MEDS: FAMOTIDINE 20 MG TABLET PO (10:25)
[2025-04-19] MEDS: ROSUVASTATIN 5 MG TABLET PO (10:26)
[2025-04-19] MEDS: ACYCLOVIR 400 MG TABLET PO (10:26)
[2025-04-19] MEDS: HYDROcodone/acetaminophen (*CRX) 5-325 MG TABLET 1 TAB PO (10:38)
[2025-04-19] MEDS: LINACLOTIDE 145 MCG CAPSULE PO (11:10)
--- NOTE | 2025-04-20 16:51 | P.DS_ITS ---
DS: Admitting Diagnosis Discharge Date 04/19/25 Admitting Diagnosis renal stone DS: Discharge Diagnosis Discharge Diagnosis (1) Bilateral nephrolithiasis: Code(s): N20.0 - Calculus of kidney Status: Acute Assessment and Plan: - CT abd/pelvis: 1. Obstructing 6 mm left mid ureteral stone at the L4-5 level with moderate hydronephrosis. 2: Nonobstructing right nephrolithiasis. - abd XR: No acute abdominal abnormality identified. - UA showed lobe indication for infection with trace leuk esterase only and no epithelial cells. - urology consulted, made NPO at midnight and repeat KUB in a.m. - failed home PO analgesics, now requiring IV analgesics. Pain control with Tylenol, Petros, Dilaudid - antiemetic p.r.n. - monitor renal function and WBC - IV fluids: LR at 100 mL/hour (2) Parkinsons disease: Qualifiers: Dyskinesia presence: with dyskinesia Fluctuating manifestations: with fluctuating manifestations Qualified Code(s): G20.B2 - Parkinson's disease with dyskinesia, with fluctuations Code(s): G20 - Parkinson's disease Status: Chronic Assessment and Plan: - continue home medication: Sinemet Plan Diet: regular, NPO at midnight GI Prophylaxis: n/a DVT Prophylaxis: SCDs IV fluids: 100 mL/hour Lines/Tubes: Peripheral IV Code Status: Full code DS: Summary Hospital Course Hospital Course: Per HPI: 64 y/o F with PMH of Parkinson's disease, hyperlipidemia, insomnia, and kidney stones presents here with flank pain. The patient presents here from home on 04/18 for further evaluation of left flank pain. She reports onset of left flank pain 1+ week ago. She describes the pain as sharp, radiation into her left lower abdomen, intermittent, and no modifying factors. The patient notes that she was recently diagnosed with a 12 mm kidney stone at an outside hospital in [place] last week. She was discharg ed with antibiotics, Flomax, and analgesics for pain control. However despite oral pain medications she reports the flank pain has worsened and is now associated with decreased appetite and nausea without vomiting. She denies fever, chills, dysuria, hematuria, or diarrhea. Reporting constipation. Initial VS at presentation: 98.3? F, HR 110, RR 12, 103/69, and 95% on RA. ED workup showed: No leukocytosis, hemoglobin 11.8, INR 1.1, normal renal function, glucose 144, UA showed 1+ protein/1+ ketones/2+ blood/trace leuks/51- [address] of the abdomen/pelvis showed an obstructing 6 mm left mid ureteral stone with moderate hydronephrosis and nonobstructing right nephrolithiasis 04/19/25 Patient has been seen by urology team underwent Cystoscopy, left ureteroscopy with laser lithotripsy, stone extraction, left retrograde pyelogram and left ureteral stent placement. has been discharged home anf follow up with urology as outpatient Status at Discharge Overall status at discharge: patient is progressing back to baseline Time Spent with Patient Time attestation: Total time spent providing and/or coordinating discharge services: Exam Const: General: comfortable and no acute distress Other: , female, nontoxic appearing HENMT: Face/Nose/Sinus: Normal nares present Mouth: Yes moist mucous membranes Eyes: General: appearance normal, both eyes and all related structures Sclera: sclerae normal Pupils: Equal, round and reactive pupils present EOM: EOMs intact bilaterally Resp: Effort & Inspection: normal respiratory effort Auscultation: clear to auscultation bilaterally Cardio: Rate: regular rate Rhythm: regular rhythm Other: S1-S2 present without murmur, rub, ectopy GI: Other: Abdomen soft, nondistended, nontender. Normoactive bowel sounds in all quadrants. Skin: General skin exam: normal color and no rashes or lesions noted Wounds: no wounds Neuro: Cranial nerves: Yes Equal, round and reactive pupils present Speech: normal speech Motor exam (neuro): 5/5 motor strength present throughout Sensory Exam: normal sensation Other: A&O x4 Extrem: General: normal to inspection Psych: Mental Status: mental status grossly normal Affect: normal affect Other: Good insight and judgment, pleasant DS: Data Data Completed and Pending Pending studies at discharge: Pending at discharge 04/19/25 08:11 Surgical [PTH] Routine Discharge Plan Discharge Attending physician on discharge: Ady Doherty Consulting providers: Nacho Dillard; Gricelda Dewey; Timmy Pang; Mauricio Cota; Luis Fernando Rodriguez; Michael Sommer Discharging Clinician: Nacho Dillard Anticipated Discharge Date/Time: 04/19/25 13:00 Patient Disposition: Home Activity: other - see discharge instructions Diet: other - see discharge instructions Wound Care Instructions: other - see discharge instructions Discharge Instructions: 1) Activity: no driving or important decisions x24 hours. 2) Diet: resume your normal, pre-admission diet. 3) Follow-up: 7-14 days for stent removal / call for appointment ([phone]). Patient Instructions: Antibiotic Form Patient Language: Icelandic Stand Alone Forms: General Discharge Information Follow-up/Referrals: Nacho Dillard MD [Physician] - Discharge Medications: New hydrocodone-acetaminophen 5-325 mg tablet 1 - 2 tablet PO Q6H PRN (Reason: pain) Qty: 20 0RF cephalexin 500 mg capsule 500 mg PO Q8H Qty: 9 0RF Continued Ingrezza 80 mg capsule 80 mg PO DAILY carbidopa-levodopa 25-100 mg tablet 1 tablet PO QID Qty: 360 4RF amantadine HCl 100 mg capsule 100 mg PO BID Qty: 180 4RF Linzess 145 mcg capsule 145 mcg PO QAM Qty: 90 1RF bupropion HCl 75 mg tablet 75 mg PO DAILY Rx Instructions: administer 6 hours apart mirtazapine 45 mg tablet 30 mg PO HS Patient Comments: pt's home medication list shows 30mg once daily. rosuvastatin 5 mg tablet 5 mg PO DAILY citalopram 40 mg tablet 40 mg PO HS famotidine 20 mg tablet 20 mg PO BID quetiapine 400 mg tablet extended release 24 hr 800 mg PO HS Patient Comments: pt's home medication list shows dosage as 1x 400mg tablet once daily at bedtime. doxepin 100 mg capsule 100 mg PO HS omeprazole 20 mg capsule,delayed release(DR/EC) 40 mg PO HS Patient Comments: pt's home medication list shows 40mg capsule, delayed release; once daily. hydrocodone-acetaminophen 5-325 mg tablet 1 tablet PO Q6H PRN (Reason: pain) Qty: 30 0RF acyclovir 400 mg tablet 400 mg PO DAILY Qty: 90 0RF ropinirole 0.25 mg tablet 0.25 mg PO TID Qty: 90 4RF Date of admission: 04/18/25 14:01 Primary Care Provider: Mj,Angelita Admitting Provider: Ady Doherty Attending physician on admission: Ady Doherty Condition: Stable
== END 2025-04-19 13:30 | disposition home or self-care (01) ==
LOC: ANHED 10:55 → ANH3MEDSUR 16:54
PROVIDERS: Student in an Organized Health Care Education/Training Program; Urology; Admitting Provider Internal Medicine; Emergency Provider Emergency Medicine; PCP Physician Assistant; Visit Provider Internal Medicine
PROC: (CPT 52352; principal; 2025-04-19 07:30)
DX: N13.2 Hydronephrosis with renal and ureteral calculous obstruction (principal); G20.B2 Parkinson's disease with dyskinesia, with fluctuations; E78.5 Hyperlipidemia, unspecified; Z87.891 Personal history of nicotine dependence
CPT/HCPCS: 52356; 36415; 74018; 74176; 74420; 80048; 80053; 81001; 82365; 83605; 85025; 85610; 85730; 88300; 96361; 96374; 96375; 96376; 99285; A9270; C1758; C1769; C2617; G0378; J0690; J1100; J1171; J1885; J2003; J2250; J2405; J2704; J3010; J7120; Q9966

== ENCOUNTER 2025-05-26 10:39 | Emergency (ER) | payer OTHER, SELFPAY ==
--- OUTSIDE RECORDS SUMMARY | 2025-04-14 06:20 | XMS_ITS ---
Author Organization [facility] Address [address] [place] [address] Care Team Providers Care Drilling Machine Operator Name Role Phone Clotilde Abbott Primary Care Provider Precious Sheffield [phone] REASON FOR VISIT please call [phone]-transfer from [facility] Encounters Encounter Location Date Provider Diagnosis [address] [place] [address] 04/14/2025 Precious Sheffield Plan Of Treatment No Information Progress Notes * Priya JOHNDOB:1960 ( 64 yo F)Acc No.[id number]:04/14/2025 UNLOCKED PROGRESS NOTE Patient: Priya MITCHELL Provider: PRABHAKAR Pierre :1960 A ge:64 Y S ex:Female Date:04/14/2025 Address[facility] [address] [id number] Pcp:Clotilde Abbott Subjective: * Chief Complaints: * 1 . please call [phone]-transfer from [facility]. * Medical History: Objective: * Vitals: Assessment: Plan: * Treatment: * * Electronic signature of Kristel Sheffield on 05/26/2025 at 12:01 PM CDT Sign off status: Pending * Provider: PRABHAKAR Pierre Date: 0 04/14/2025 Generated for Shanelle amaral/Zenaida/Jeffery on: 0 05/26/2025 12:01 PM CDT
--- NOTE | ~2025-05-26 | XR_ITS ---
EXAMINATION: XR foot RT min 3V DATE: 05/26/2025 11:13 INDICATION: Pain TECHNIQUE: 4 images of the right foot were obtained. COMPARISON: None. FINDINGS: Moderate to severe degenerative change in the first metatarsophalangeal joint with adjacent soft tissue swelling. Bones appear osteopenic. No fracture. No dislocation. Small plantar and posterior calcaneal spurs. IMPRESSION: 1. No fracture. No dislocation. 2. Moderate to severe degenerative change in the first metatarsophalangeal joint with adjacent soft tissue swelling. If symptoms persist or worsen, consider a short-term follow-up study or additional imaging for further assessment. Reviewed, dictated and finalized at location Q. IMPRESSION: 1. No fracture. No dislocation. 2. Moderate to severe degenerative change in the first metatarsophalangeal join t with adjacent soft tissue swelling. If symptoms persist or worsen, consider a short-term follow-up study or additio nal imaging for further assessment.
--- NOTE | ~2025-05-26 | XR_ITS ---
EXAMINATION: XR ankle RT min 3V, 05/26/2025 11:05 CDT HISTORY: pain COMPARISON: No comparisons available. Findings: No acute fracture or malalignment. No significant degenerative changes. Soft tissues unremarkable. Impression: No acute fracture or malalignment. Reviewed, dictated and finalized at location A. Impression: No acute fracture or malalignment.
[2025-05-26 10:44] VITALS: BP 121/79; PULSE 71; RESP 16; TEMP 36.8; O2SAT 98
--- OUTSIDE RECORDS SUMMARY | 2025-05-26 12:01 | XMS_ITS | Patient Health Record ---
Author Organization [facility] Address [address] [place] [address] Care Team Providers Care Marketing Project Specialist Name Role Phone Clotilde Abbott Primary Care Provider [phone] Liv Lopez Unavailable Precious Sheffield Unavailable [phone] Allergies Allergen (clinical drug ingredient) Drug/Non Drug Allergy documented on EMR Reaction Allergy Type Onset Date Status No Known Drug Allergy Unknown Drug Allergy Active Reason For Referral No Information Medications Medication SIG (Take, Route, Frequency, Duration) Notes Start Date End Date Status Amantadine HCl 100 MG 1 tablet Orally On ce a day; Duration: 30 day(s) Active rOPINIRole HCl 0.25 MG 1 tablet Orally T hree times a day Active Doxepin HCl 100 MG 1 capsule at bedtime Orally Once a day Active Carbidopa-Levodopa 25-100 MG 1 tablet Orally Three times a day Active Omeprazole 40 MG 1 capsule Orally Onc e a day Active Crestor 5 MG 1 tablet Orally Once a day Active Mirtazapine 30 MG 1 tablet at bedtime Orally Once a day; Duration: 30 days Active Ingrezza 80 MG 1 capsule Orally Onc e a day; Duration: 30 days Active QUEtiapine Fumarate 400 MG 1 tablet Orally at bedtime; Duration: 30 days Active Citalopram Hydrobromide 40 MG 1 tablet Orally Once a day; Duration: 30 days Active Rosuvastatin Calcium 5 MG 1 capsule Oral ly Once a day Active Acyclovir 400 mg one tab orally daily as needed Active Carvedilol 25 MG 1 tablet with food Orally Twice a day Not-Taking Social History Tobacco Use: Social History Observation [...] 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 Stress is when someone feels tense, nervous, anxious, or can\t sleep at night because their mind is troubled A little bit In the past year have you sp ent more than 2 nights in a row in a fdc, chcf, fpc center, or juvenile correctional facility? No Are [...] Status Risk Notes Problem Major depressive disorder (089042681) Major depressive disorder (F32.9) 03/04/2024 Active confirmed Problem Insomnia due to mental disorder (59586929) Insomnia due to mental disorder (F51.05) 03/04/2024 Active confirmed Vital Signs Heart Rate 45 /min 10/29/2024 Respiratory Rate 16 /min 10/29/2024 Blood pressure diastolic 76 mm Hg 10/29/2024 Oximetry 93 % 10/29/2024 Height 61 in 04/28/2025 Blood pressure systolic 98 mm Hg 10/29/2024 Weight 125 lbs 04/28/2025 BMI 23.62 kg/m2 04/28/2025 Encounters Encounter Location Date Provider Diagnosis [place] [address] [address] 07/17/2024 Clotilde Abbott Major depressive disorder F32.9 ; Dyskinesia, tardive G24.01 ; Insomnia due to mental disorder F51.05 and Non-tobacco user Z78.9 [facility] [address] [address] 08/19/2024 Clotilde Abbott Major depressive disorder F32.9 ; Dyskinesia, tardive G24.01 ; Insomnia due to mental disorder F51.05 and Non-tobacco user Z78.9 [place] [address] 10/29/2024 Clotilde Abbott Major depressive disorder F32.9 ; Dyskinesia, tardive G24.01 ; Insomnia due to mental disorder F51.05 and Non-tobacco user Z78.9 [place] [address] 10/29/2024 Liv Lopez [place] [place] [address] 11/25/2024 Clotilde Abbott Major depressive disorder F32.9 ; Dyskinesia, tardive G24.01 ; Insomnia due to mental disorder F51.05 and Non-tobacco user Z78.9 [place] [address] 01/15/2025 Kyritorrey Abbott Major depressive disorder F32.9 ; Dyskinesia, tardive G24.01 ; Insomnia due to mental disorder F51.05 and Non-tobacco user Z78.[address] [address] 04/28/2025 Precious Sheffield Dyskinesia, tardive G24.01 ; Major depressive disorder F32.9 and Insomnia due to mental disorder F51.05 [facility] [address] [place] [address] 10/15/2024 Clotilde Abbott Dyskinesia, tardive G24.01 [facility] [address] [place] [address] 11/06/2024 Clotilde Abbott [address] [place] [address] 04/20/2025 Precious Sheffield Dyskinesia, tardive G24.01 Assessments Encounter Date Diagnosis (ICD Code) Assessment Notes Treatment Notes Treatment Clinical Notes Section Notes 07/17/2024 Major depressive disorder (ICD-10 - F32.9) 08/19/2024 Major depressive disorder (ICD-10 - F32.9) 10/15/2024 Dyskinesia, tardive (ICD-10 - G24.01) 10/29/2024 Major depressive disorder (ICD-10 - F32.9) 11/25/2024 Major depressive disorder (ICD-10 - F32.9) 01/15/2025 Major depressive disorder (ICD-10 - F32.9) 04/20/2025 Dyskinesia, tardive (ICD-10 - G24.01) 04/28/2025 Dyskinesia, tardive (ICD-10 - G24.01) 01/15/2025 Dyskinesia, tardive (ICD-10 - G24.01) 04/28/2025 Major depressive disorder (ICD-10 - F32.9) 10/29/2024 Dyskinesia, tardive (ICD-10 - G24.01) 11/25/2024 Dyskinesia, tardive (ICD-10 - G24.01) 07/17/2024 Dyskinesia, tardive (ICD-10 - G24.01) 08/19/2024 Dyskinesia, tardive (ICD-10 - G24.01) 08/19/2024 Insomnia due to mental disorder (ICD-10 - F51.05) History: to [place] for 30+ years. Has 1 child, 2010 when her depression started. No currently in therapy. Hx of taking Wellbutrin (constipation, dizziness). Has 5 grandchildren. Today's visit: Patient is a 63-year-old female who presents for a psychiatric follow-up over phone and is located in [place], is accompanied by her Phillip. Previously seen [...] an AIMS. Ingrezza refill was sent to [facility] today. No acute safety concerns the time of this appt, she is in agreement with treatment plan and was provided an opportunity to ask questions. May self-administer medications or be administered own oral medications per [facility] protocols. Provided informed consent with understanding of [...] follow-up over phone and is located in [place], is accompanied by her Phillip. Previously seen [...] or be administered own oral medications per [facility] protocols. Provided informed consent with understanding of [...] follow-up over phone and is located in [facility], Phillip is present. Reports no noticeable improvement in [...] or be administered own oral medications per [facility] protocols. Provided informed consent with understanding of [...] or be administered own oral medications per [facility] protocols. Provided informed consent with understanding of [...] follow-up over phone and is located in [place], Phillip is present. Reports stability in mood/anxiety [...] or be administered own oral medications per [facility] protocols. Provided informed consent with understanding of side effects, adverse effects, risks and benefits as well as alternative treatments as previously discussed and with the above recommended medications & other aspects of the treatment program. Agrees to return sooner if symptoms worsen or suicidal or homicidal ideations occur. 04/28/2025 Insomnia due to mental disorder (ICD-10 - F51.05) History: to [place] for 30+ years. Has 1 child, 2010 when her depression started. No currently in therapy. Hx of taking Wellbutrin (constipation, dizziness). Has 5 grandchildren. May self-administer medications or be administered own oral medications per [facility] protocols. Provided informed consent with understanding of [...] Z78.9) 08/19/2024 Non-tobacco user (ICD-10 - Z78.9) 10/29/2024 Other [employer] Att[employer] met with Priya John to assist in working on building skills to help the consumer gain confidence in their independent living skills. HN explained some of the services that [facility] offers, and informed the client if any needs do occur to reach out. HN provided the client with her business card and phone number. Plan Of Treatment No Information Insurance Providers Payer Name Payer Address Payer Phone Subscriber Number Group Number Insured Name Patient Relationship to Insured Coverage Start Date Coverage End Date [facility] [place] [address] [phone] [id number] JosetteRobles marcusmy Self - patient is the insured 4 MEDICA[place] [address] [place] [address] [id number] DoraRoblesmy Self - patient is the insured 3 4 [facility] Attn Claims Department [address] [place] [address] [phone] [id number] Priya John Self - patient is the insured 4 MEDICARE PART A [address] [place] [address] [id number] Priya John Self - patient is the insured 3 4 Medical (General) History Medical History History ICD Code Parkinsons GERD High Cholesterol Restless legs Tardive Dyskinesia Surgical History Surgery Date(Month/Year) Denies Hospitalization History Reason Date(Month/Year) kidney stone [facility] 03/2025 broke wrist (Right) 11/2023
--- NOTE | 2025-05-26 12:31 | ED.LOWEXIN ---
HPI - Extremity Injury (Lower) General Chief Complaint: Extremity Injury, Lower Stated Complaint: foot pain Time Seen by Provider: 05/26/25 11:27 Source: patient Mode of arrival: EMS Limitations: no limitations History of Present Illness HPI Narrative: Patient is a 64-year-old female, past medical history of Parkinson's disease, who presents the ED via EMS with report of right foot pain. Patient reports she was walking down the stairs and missed the last step, rolling her right foot. States it is felt as though her right toes bent backwards behind her foot. She complains of pain to her right dorsal foot and ankle. Denies numbness. Denies any other injuries. Denies head injury or LOC. He is not on any anticoagulation. Related Data Home Medications ?Medication ?Instructions ?Recorded ?Confirmed ?Last Taken ?Type valbenazine 80 mg capsule 80 mg PO DAILY 03/08/21 04/18/25 Unknown History (Ingrezza) rosuvastatin 5 mg tablet 5 mg PO DAILY 10/02/21 04/18/25 04/18/25 09:00 History bupropion HCl 75 mg tablet 75 mg PO DAILY 09/19/23 04/18/25 Unknown History mirtazapine 45 mg tablet 30 mg PO HS 09/19/23 04/18/25 04/17/25 21:00 History citalopram 40 mg tablet 40 mg PO HS 12/08/23 04/18/25 04/17/25 21:00 History 40 mg famotidine 20 mg tablet 20 mg PO BID 12/08/23 04/18/25 04/18/25 09:00 History quetiapine 400 mg tablet,extended 800 mg PO HS 12/08/23 04/18/25 04/17/25 21:00 History release 24 hr doxepin 100 mg capsule 100 mg PO HS 04/18/25 04/18/25 04/17/25 21:00 History 100 mg omeprazole 20 mg capsule,delayed 40 mg PO HS 04/18/25 04/18/25 04/17/25 21:00 History release Allergies Allergy/AdvReac Type Severity Reaction Status Date / Time No Known Allergies Allergy Verified 05/26/25 10:45 Review of Systems Review of Systems: All systems reviewed & are unremarkable except as noted in HPI. All systems reviewed & are unremarkable except as noted in HPI and below PMFSH Past Medical History Medical History Kidney stone Chronic idiopathic constipation Hyperlipidemia Insomnia Parkinsons disease Surgical History Surgical History H/O colonoscopy 03/10/20 Family History Family History Father Cancer Diabetes mellitus Hypertension Mother Cancer Depression Social History Social History Smoking packs per day: 0 Smoking cigarettes per day: 0.0 Years smoked: 0 Smoking pack-years: 0.00 Smoking status: Former smoker Second hand tobacco smoke exposure: No Alcohol intake: never Substance use: never Substance use type: does not use Do You Feel Safe in your Home?: Yes Lack of Transportation: No Lack of Food: Never True Current Housing: I Have Housing Concerned About Future Housing: No Difficulty Paying Gas/Electric Bills: No Difficulty Paying for Meds: No Currently Unemployed: No Education: High School Diploma/GED Difficulty w/ Childcare or Family Care: No Living arrangements: with family Spiritual care concerns: No Exam Narrative: GENERAL: Well appearing, well-nourished, non-toxic, in no acute distress. HEAD: Normocephalic, atraumatic. RESPIRATORY: Airway patent, respirations nonlabored. CARDIOVASCULAR: Regular rate and rhythm. Pedal pulses intact. MUSCULOSKELETAL: Moves all extremities. No gross deformities. Mild swelling/contusion, focal tenderness to palpation to right dorsal midfoot, right lateral dorsal foot. Sensation intact. Able to wiggle toes. SKIN: Warm, dry, normal color. NEURO: A&O X3. Speech clear. Cranial nerves II-XII grossly intact. No ataxic movements. PSYCHIATRIC: Appropriate mood and affect. Normal interaction. Course Vital Signs Vital signs: Vital Signs Temperature 98.2 F 05/26/25 10:44 Pulse Rate 71 05/26/25 10:44 Respiratory Rate 16 05/26/25 10:44 Blood Pressure 121/79 05/26/25 10:44 Pulse Oximetry 98 05/26/25 10:44 Temperature 98.2 F 05/26/25 10:44 Pulse Rate 71 05/26/25 10:44 Respiratory Rate 16 05/26/25 10:44 Blood Pressure 121/79 05/26/25 10:44 Pulse Oximetry 98 05/26/25 10:44 MDM - Extremity Injury (Lower) MDM Narrative Medical decision making narrative: Patient?s injury is consistent with musculoskeletal etiology. No signs of neurologic or vascular compromise on physical examination. Compartments are soft without signs of compartment syndrome. XR of R foot/negative negative for fracture. Pain is consistent with R foot contusion/sprain. Patient is felt to be stable for discharge home and further outpatient management and treatment. Placed in mykel bandage, post op shoe, crutches. Given pain control in the ED. Discussed rice therapy. Advised can follow-up with Orthopedics, Podiatry for further evaluation if needed. Given return precautions. Discharged in stable condition. Medical Records Attestation: I reviewed the patient's medical records. Imaging Data Attestation: I personally reviewed and interpreted this imaging study as follows: Radiologist's impression: ITS Impressions Foot X-Ray 05/26/25 11:14 IMPRESSION: 1. No fracture. No dislocation. 2. Moderate to severe degenerative change in the first metatarsophalangeal joint with adjacent soft tissue swelling. If symptoms persist or worsen, consider a short-term follow-up study or additional imaging for further assessment. Ankle X-Ray 05/26/25 11:15 Impression: No acute fracture or malalignment. Discharge Plan Discharge Clinical Impression: Contusion of right foot, Strain of right foot Patient Disposition: Home Condition: Stable Instructions: Antibiotic Form, Foot Contusion (ED), Foot Sprain (ED) Additional Instructions: Recommend frequent icing to foot, Mykel bandage for compression and support, elevation of leg. Continue Tylenol and Ibuprofen as needed for pain. Recommend [place] as needed for more severe pain. Follow-up with your primary care doctor or orthopedics/podiatry for further evaluation if needed. Call office to make appointment if needed. Return to the ED if you experience worsening or severe pain, recurrent injury, numbness, or any other symptoms of concern. Patient Language: Yi Prescriptions: New hydrocodone-acetaminophen 5-325 mg tablet 1 tablet PO Q6H PRN (Reason: pain) Qty: 5 0RF No Action Ingrezza 80 mg capsule 80 mg PO DAILY carbidopa-levodopa 25-100 mg tablet 1 tablet PO QID Qty: 360 4RF amantadine HCl 100 mg capsule 100 mg PO BID Qty: 180 4RF Linzess 145 mcg capsule 145 mcg PO QAM Qty: 90 1RF bupropion HCl 75 mg tablet 75 mg PO DAILY Rx Instructions: administer 6 hours apart mirtazapine 45 mg tablet 30 mg PO HS Patient Comments: pt's home medication list shows 30mg once daily. rosuvastatin 5 mg tablet 5 mg PO DAILY citalopram 40 mg tablet 40 mg PO HS famotidine 20 mg tablet 20 mg PO BID quetiapine 400 mg tablet extended release 24 hr 800 mg PO HS Patient Comments: pt's home medication list shows dosage as 1x 400mg tablet once daily at bedtime. doxepin 100 mg capsule 100 mg PO HS omeprazole 20 mg capsule,delayed release(DR/EC) 40 mg PO HS Patient Comments: pt's home medication list shows 40mg capsule, delayed release; once daily. hydrocodone-acetaminophen 5-325 mg tablet 1 - 2 tablet PO Q6H PRN (Reason: pain) Qty: 20 0RF cephalexin 500 mg capsule 500 mg PO Q8H Qty: 9 0RF hydrocodone-acetaminophen 5-325 mg tablet 1 tablet PO Q6H PRN (Reason: pain) Qty: 30 0RF acyclovir 400 mg tablet 400 mg PO DAILY Qty: 90 0RF ropinirole 0.25 mg tablet 0.25 mg PO TID Qty: 90 4RF Follow-up/Referrals: Yves,HUNTER Goldstein [Primary Care Provider, Unknown] Adan Sapp Jr., DPM [Physician, Podiatry] Referral Note: PODIATRY Vamshi Mariscal MD [Physician, Orthopedics] Referral Note: ORTHOPEDICS Time of Disposition: 12:41
[2025-05-26] MEDS: IBUPROFEN 600 MG TABLET PO (12:48)
[2025-05-26] MEDS: HYDROcodone/acetaminophen (*CRX) 5-325 MG TABLET 1 TAB PO (12:48)
== END 2025-05-26 13:03 | disposition home or self-care (01) ==
PROVIDERS: Emergency Provider Physician Assistant; PCP Physician Assistant
DX: S96.911A Strain of unspecified muscle and tendon at ankle and foot level, right foot, initial encounter (principal); S90.31XA Contusion of right foot, initial encounter; Z87.442 Personal history of urinary calculi; E78.5 Hyperlipidemia, unspecified; G20.A1 Parkinson's disease without dyskinesia, without mention of fluctuations; X50.0XXA Overexertion from strenuous movement or load, initial encounter
CPT/HCPCS: 73610; 73630; 99283; A9270

== ENCOUNTER 2025-07-17 11:57 | Outpatient (CLI) | payer OTHER, SELFPAY ==
--- NOTE | ~2025-07-17 | CT_ITS ---
EXAMINATION:CT lung screening DATE: 07/17/2025 12:20 INDICATION: Personal history of nicotine dependence. TECHNIQUE: Computed tomography (CT) of the chest was performed without intravenous contrast. Automated exposure control and iterative reconstruction technique were employed. The dose-length product (DLP) was 69.95 mGy-cm. COMPARISON: Chest CT 05/28/2024 FINDINGS: There is mild atelectasis bilaterally. There is mild emphysema. There is a 1.5 cm groundglass opacity in right lower lobe. There are few scattered 2 mm pulmonary nodules. No pleural effusion. The heart size is normal. No pericardial effusion. There is a large sliding hiatal hernia. There is moderate thoracic spondylosis. There is thoracic kyphosis. There is mild chronic anterior wedging of multiple thoracic vertebral bodies. IMPRESSION: 1. Lung-RADS category 2: Benign appearance or behavior. Continue annual screening with noncontrast low-dose chest CT in 12 months. Reviewed, dictated and finalized at location E. IMPRESSION: 1. Lung-RADS category 2: Benign appearance or behavior. Continue annual screeni ng with noncontrast low-dose chest CT in 12 months.
== END 2025-07-17 11:58 | disposition home or self-care (01) ==
PROVIDERS: PCP Physician Assistant; Visit Provider Physician Assistant
DX: Z12.2 Encounter for screening for malignant neoplasm of respiratory organs (principal); Z87.891 Personal history of nicotine dependence
CPT/HCPCS: 71271